=== PATIENT | male | born 1960 | race Caucasian/White ===

== ENCOUNTER → 2018-01-11 | Outpatient (CLI) | payer SELFPAY ==
--- NOTE | 2018-01-11 13:03 | RADIOLOGY REPORT (SQ) ---
EXAM DESCRIPTION: NM WHOLE BODY BONE SCAN COMPLETED DATE/TIME: 01/11/2018 12:33 pm REASON FOR STUDY: PROSTATE CANCER C61 MALIGNANT NEOPLASM OF PROSTATE COMPARISON: No available imaging studies for comparison. RADIONUCLIDE AND DOSE: 21.7 millicuries Tc99m MDP. The route of agent administration: Intravenous. ADDITIONAL DRUGS AND DOSES: None. TECHNIQUE: Routine delayed images at 3 hour post radionuclide injection acquired of the bony skeleto n including anterior and posterior whole-body projections and additional focused images as needed. LIMITATIONS: None. FINDINGS: BONES: Normal visualization without areas of photopenia or increased bony uptake of radiop harmaceutical. KIDNEYS: Symmetric excretion without obstruction. OTHER: No other significant finding. IMPRESSION: NORMAL BONE SCAN. COMMENT: Quality measure 147: No available prior imaging studies for comparison TECHNICAL DOCUMENTATION: JOB ID: [id number] [employer]- All Rights Reserved Reading location - IP/workstation name: [email or web address]
== END ==
LOC: RAD 08:08
PROVIDERS: ATTEND Urology
DX: C61 Malignant neoplasm of prostate (principal)
CPT/HCPCS: 78306; A9561; Q9969

== ENCOUNTER → 2018-02-24 | Outpatient (CLI) | payer OTHER ==
--- NOTE | 2018-02-25 10:33 | RADIOLOGY REPORT (SQ) ---
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 CONTRAST TYPE AND DOSE: 20 mL Prohance. RENAL FUNCTION: GFR > 60. LIMITATIONS: None. FINDINGS: LIVER: 1.8 cm hemangioma, anterior left lobe liver subdiaphragmatic surface. No worrisome liver lesions. No biliary ductal dilatation. Normal size liver. SPLEEN: Normal size. No focal lesions. PANCREAS: No masses. No adjacent inflammation or peripancreatic fluid collections. Pancreatic duct no t dilated. GALLBLADDER: No masses. No stones. No gallbladder wall thickening or pericholecystic fluid. ADRENAL GLANDS: No significant masses or asymmetry. RIGHT KIDNEY AND URETER: No masses. No hydronephrosis. LEFT KIDNEY AND URETER: No masses. No hydronephrosis. 1 cm cyst left posterior mid pole kidney. AORTA AND VESSELS: No aneurysm. No dissection. Renal arteries, SMA, celiac without stenosis. RETROPERITONEUM: No retroperitoneal adenopathy, hemorrhage or masses. BOWEL: Not well seen, diffuse colonic diverticulosis is present without CT signs of acute diverticuli tis ABDOMINAL WALL AND PERITONEUM: No hernias. No free fluid. BONES: No acute or significant findings. OTHER: No other significant finding. IMPRESSION: NORMAL MRI OF THE ABDOMEN WITHOUT AND WITH CONTRAST. TECHNICAL DOCUMENTATION: JOB ID: [id number]- All Rights Reserved Reading location - IP/workstation name: [email or web address]
== END ==
LOC: RAD 13:56
PROVIDERS: ATTEND Radiology Radiation Oncology
DX: C61 Malignant neoplasm of prostate (principal); C77.5 Secondary and unspecified malignant neoplasm of intrapelvic lymph nodes; K76.89 Other specified diseases of liver; R97.20 Elevated prostate specific antigen [PSA]
CPT/HCPCS: 82565; 74183; A9576

== ENCOUNTER → 2018-03-25 | Outpatient (CLI) | payer OTHER ==
[2018-03-25 10:49] LABS: ABSOLUTE LYMPHOCYTES (AUTO) 1.2 10^3/uL (0.5-4.7); ABSOLUTE MONOCYTES (AUTO) 0.4 10^3/uL (0.1-1.4); BASOPHILS % (AUTO) 0.2 % (0-2); EOSINOPHILS % (AUTO) 0.7 % (0-6); HEMATOCRIT 40.5 % (37.9-51.0); HEMOGLOBIN 14.2 g/dL (13.5-17.0); MEAN CORPUSCULAR HEMOGLOBIN 31.7 pg (27.0-33.4); MEAN CORPUSCULAR VOLUME 90 fl (80-97); MONOCYTES % (AUTO) 6.5 % (3-13); PLATELET COUNT 252 10^3/uL (150-450); RED BLOOD COUNT 4.48 10^6/uL (4.35-5.55); RED CELL DISTRIBUTION WIDTH 14.2 % (11.5-14.0); SEGMENTED NEUTROPHILS % (AUTO) 74.6 % (42-78); TOTAL CELLS COUNTED % (AUTO) 100 %; WHITE BLOOD COUNT 6.7 10^3/uL (4.0-10.5)
[2018-03-25 11:20] LABS: BLOOD UREA NITROGEN 25 mg/dL (7-20)
== END ==
LOC: OD 09:17
PROVIDERS: ATTEND Radiology Radiation Oncology
DX: C61 Malignant neoplasm of prostate (principal); R97.20 Elevated prostate specific antigen [PSA]; C77.5 Secondary and unspecified malignant neoplasm of intrapelvic lymph nodes
CPT/HCPCS: 36415; 82565; 84153; 84520; 85025

== ENCOUNTER → 2018-09-16 | Outpatient (CLI) | payer OTHER | LOC: OD 10:14 | PROVIDERS: ATTEND Radiology Radiation Oncology | DX: C61 Malignant neoplasm of prostate (principal) | CPT/HCPCS: 36415; 84153 ==

== ENCOUNTER → 2018-12-30 | Outpatient (CLI) | payer OTHER | LOC: OD 15:28 | PROVIDERS: ATTEND Radiology Radiation Oncology | DX: C61 Malignant neoplasm of prostate (principal); C77.5 Secondary and unspecified malignant neoplasm of intrapelvic lymph nodes; R97.20 Elevated prostate specific antigen [PSA] | CPT/HCPCS: 36415; 84153 ==

== ENCOUNTER → 2019-05-30 | Outpatient (CLI) | payer MEDICAID, OTHER ==
--- NOTE | 2019-05-30 10:52 | RADIOLOGY REPORT (SQ) ---
EXAM DESCRIPTION: CT CHEST WITH; CT ABD/PELVIS WITH IV ONLY COMPLETED DATE/TIME: 05/30/2019 9:32 am REASON FOR STUDY: PROSTATE CA (C61) C61 MALIGNANT NEOPLASM OF PROSTATE COMPARISON: None. CONTRAST TYPE AND DOSE: contrast/concentration: Isovue 350.00 mg/ml; Total Contrast Delivered: 95.0 ml; Total Saline Delivered: 71.0 ml RENAL FUNCTION: GFR > 60. TECHNIQUE: CT scan of the chest performed using helical scanning technique with dynamic intravenous contrast injection. Images reviewed with lung, soft tissue and bone windows. Reconstructed coronal a nd sagittal MPR images reviewed. All images stored on PACS. CT scan of the abdomen and pelvis performed with intravenous and without oral contrastusing helical s jules technique with dynamic intravenous contrast injection. Images reviewed with lung, soft tissu e and bone windows. Reconstructed coronal and sagittal MPR images reviewed. Delayed images for eval uation of the urinary system also acquired and evaluated. All images stored on PACS. All CT scanners at this facility use dose modulation, iterative reconstruction, and/or weight based d osing when appropriate to reduce radiation dose to as low as reasonably achievable (ALARA). [facility]: Dose Right [facility]: CareDose [facility]: Dose Right [facility]: Teradose 4D [facility]: [employer] RADIATION DOSE: CT Rad equipment meets quality standard of care and radiation dose reduction techniq ues were employed. CTDIvol: 6.4 - 8.5 mGy. DLP: 1169 mGy-cm. . LIMITATIONS: None. FINDINGS: CHEST: LUNGS AND PLEURA: There are multiple small bilateral pulmonary nodules, for example a a 6 mm nodule i n the superior segment right lower lobe (series 6, image 57). No pneumothorax. No effusions. HILAR AND MEDIASTINAL STRUCTURES: No identified masses or abnormal nodes. HEART AND VASCULAR STRUCTURES: No aneurysm or dissection. No central pulmonary emboli. No pericardi al effusion. HARDWARE: None. THYROID AND OTHER SOFT TISSUES: No masses. No adenopathy. BONES: No significant finding. OTHER: No other significant finding. ABDOMEN AND PELVIS: LIVER: Normal size. Small incidental peripheral nodular enhancing septae caps hemangioma of the ante rior left lobe of the liver. No dilated ducts. SPLEEN: Normal size. No focal lesions. PANCREAS: No masses. No significant calcifications. No adjacent inflammation or peripancreatic fluid collections. Pancreatic duct not dilated. GALLBLADDER: No identified stones by CT criteria. No inflammatory changes to suggest cholecystitis. ADRENAL GLANDS: No significant masses or asymmetry. RIGHT KIDNEY AND URETER: No solid masses. No significant calcification. No hydronephrosis or hydroure ter. LEFT KIDNEY AND URETER: No solid masses. No significant calcification. No hydronephrosis or hydrouret er. AORTA AND VESSELS: No aneurysm. No dissection. Renal arteries, SMA, celiac without stenosis. RETROPERITONEUM: There are enlarged left retroperitoneal lymph nodes measuring up to 1.5 cm (series 3 , image 42). BOWEL AND PERITONEAL CAVITY: No masses or inflammatory changes. No free fluid or peritoneal masses. Severe pancolonic diverticulosis. APPENDIX: Normal. ABDOMINAL WALL: No masses. Small bilateral fat containing inguinal hernias. PELVIS: No mass or free fluid. Mild thickening of the urinary bladder. Multiple marking clips withi n the prostate. Status post TURP. BONES: No significant or acute findings. OTHER: No other significant finding. IMPRESSION: 1. Multiple small nonspecific pulmonary nodules. These are likely infectious or inflam matory although attention on follow-up is warranted. 2. Multiple marking clips within the prostate. Status post TURP. No evidence of pelvic mass. 3. There are enlarged left retroperitoneal lymph nodes measuring up to 1.5 cm, suspicious although n onspecific. Attention on follow-up. 4. Pancolonic diverticulosis. TECHNICAL DOCUMENTATION: JOB ID: [id number] Quality ID # 436: Final reports with documentation of one or more dose reduction techniques (e.g., Au tomated exposure control, adjustment of the mA and/or kV according to patient size, use of iterative reconstruction technique) 2010 [employer]- All Rights Reserved Reading location - IP/workstation name: [email or web address]
== END ==
LOC: RAD 08:47
PROVIDERS: ATTEND Urology
DX: C61 Malignant neoplasm of prostate (principal); R91.8 Other nonspecific abnormal finding of lung field; R59.0 Localized enlarged lymph nodes; K57.30 Diverticulosis of large intestine without perforation or abscess without bleeding
CPT/HCPCS: 71260; 74177; 82565

== ENCOUNTER → 2019-07-25 | Outpatient (CLI) | payer MEDICAID ==
--- NOTE | 2019-07-25 12:51 | RADIOLOGY REPORT (SQ) ---
EXAM DESCRIPTION: NM WHOLE BODY BONE SCAN COMPLETED DATE/TIME: 07/25/2019 12:36 pm REASON FOR STUDY: C61 MALIGNANT NEOPLASM OF PROSTATE C61 MALIGNANT NEOPLASM OF PROSTATE COMPARISON: CT chest, abdomen and pelvis dated 05/30/2019 RADIONUCLIDE AND DOSE: 21.5 millicuries Tc99m HDP. The route of agent administration: Intravenous. ADDITIONAL DRUGS AND DOSES: None. TECHNIQUE: Routine delayed images at 3 hour post radionuclide injection acquired of the bony skeleto n including anterior and posterior whole-body projections and additional focused images as needed. LIMITATIONS: None. FINDINGS: BONES: There is abnormal uptake in a upper right posterior rib probably the 1st or 2nd rib . Review of prior CT demonstrates possible fracture involving the right posterolateral 2nd rib. Thi s however is in various soft finding and could represent artifact. No obvious lytic or sclerotic pro cess ease on CT. KIDNEYS: Symmetric excretion without obstruction. OTHER: No other significant finding. IMPRESSION: Linear uptake in a right upper rib probably the 1st per 2nd. The pattern or uptake sugg est metastatic disease. Review of a CT done on May demonstrates possible nondisplaced fracture. Recommend repeat conventional radiographs for correlation. No other areas of abnormal uptake. COMMENT: Quality measure 147: Current bone scan is compared with any available plain radiographs, p rior bone scans, and CT/MRI. TECHNICAL DOCUMENTATION: JOB ID: [id number] [employer], an [employer]- All Rights Reserved Reading location - IP/workstation name: [email or web address]
== END ==
LOC: RAD 08:07
PROVIDERS: ATTEND Urology
DX: C61 Malignant neoplasm of prostate (principal)
CPT/HCPCS: 78306; A9561; Q9969

== ENCOUNTER → 2020-04-16 | Outpatient (CLI) | payer MEDICAID ==
--- NOTE | 2020-04-16 18:20 | RADIOLOGY REPORT (SQ) ---
EXAM DESCRIPTION: KUB/ABDOMEN (SINGLE VIEW) IMAGES COMPLETED DATE/TIME: 04/16/2020 12:42 pm REASON FOR STUDY: M54.5 LOW BACK PAIN, R10.30 LOWER ABDOMINAL PAIN, UNSPECIFIED M54.5 LOW BACK PAIN R10.30 LOWER ABDOMINAL PAIN, UNSPECIFIED COMPARISON: None. NUMBER OF VIEWS: One view. TECHNIQUE: Supine radiographic image of the abdomen acquired. LIMITATIONS: None. FINDINGS: BOWEL GAS PATTERN: Normal bowel gas pattern. No dilated loops. CALCIFICATIONS: No suspicious calcifications. SOFT TISSUES: No gross mass or suggestion of organomegaly. HARDWARE: None in the abdomen. BONES: Degenerative disc narrowing at the lumbosacral junction. OTHER: No other significant finding. IMPRESSION: NO RADIOGRAPHIC EVIDENCE FOR ACUTE ABDOMINAL DISEASE. TECHNICAL DOCUMENTATION: JOB ID: [id number] 2010 [employer] All Rights Reserved Reading location - IP/workstation name: [email or web address]
== END ==
LOC: RAD 12:21
PROVIDERS: ATTEND Nurse Practitioner Family
DX: M54.5 Low back pain (principal); R10.30 Lower abdominal pain, unspecified
CPT/HCPCS: 74018

== ENCOUNTER → 2020-04-30 | Outpatient (CLI) | payer MEDICAID ==
--- NOTE | 2020-04-30 12:30 | RADIOLOGY REPORT (SQ) ---
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 No oral contrast. Images reviewed with lung, soft tissue, and bone windows. Reconstructed coronal and sagittal MPR images reviewed. Delayed images for evaluation of the urinary system also acquired. All images stored on PACS. All CT scanners at this facility use dose modulation, iterative reconstruction, and/or weight based d osing when appropriate to reduce radiation dose to as low as reasonably achievable (ALARA). [facility]: Dose Right [facility]: CareDose [facility]: Dose Right [facility]: Teradose 4D [facility]: [employer] CONTRAST TYPE AND DOSE: Contrast/concentration: Isovue 300.00 mmol/ml; Total Contrast Delivered: 98. 9 ml; Total Saline Delivered: 57.0 ml RENAL FUNCTION: Creatinine 1.8 milligrams/deciliter RADIATION DOSE: CT Rad equipment meets quality standard of care and radiation dose reduction techniq ues were employed. CTDIvol: 13.2 - 13.2 mGy. DLP: 1338 mGy-cm. LIMITATIONS: None. FINDINGS: LOWER CHEST: Stable ill-defined nodular opacity in the left lower lobe (image 6 of series 4). LIVER: The morphology of the liver is noncirrhotic. There is a 2.2 x 2 cm hypervascular lesion withi n segment 2 of the liver (image 11 of series 2) that demonstrates peripheral discontinuous enhancemen t. The portal veins are patent. SPLEEN: No splenomegaly or splenic mass. There is a 16 x 14 mm accessory splenule medial to the sple en. PANCREAS: No acute gross abnormality of the pancreas. GALLBLADDER: No abnormality that is apparent on CT. ADRENAL GLANDS: No mass or asymmetry. RIGHT KIDNEY AND URETER: No solid mass, hydronephrosis, nephrolithiasis, hydroureter or ureterolithia sis. LEFT KIDNEY AND URETER: Abrupt tapering of the proximal to mid ureter (image 59 of series 601) associ ated with inflammation of the periureteric fat, moderate hydronephrosis, delayed renal enhancement an d impaired excretion of the intravenous contrast. AORTA AND VESSELS: Atherosclerotic calcification of the abdominal aorta and iliac artery's. There is no abdominal aortic aneurysm. RETROPERITONEUM: Enlarged lateral aortic lymph nodes that have increased in size from 05/30/2019; ind ividual lymph nodes measure 18 and 11 mm. BOWEL AND PERITONEAL CAVITY: Colonic diverticulosis without diverticulitis. There is no bowel obstru ction, bowel wall thickening or pericolonic/ perienteric inflammation. There is no mesenteric adenop athy, free intraperitoneal fluid or mesenteric/omental inflammation. APPENDIX: Normal. PELVIS: The wall of the urinary bladder is circumferentially thickened. There are fiducial markers w ithin the prostate gland. There is no pelvic adenopathy. ABDOMINAL WALL: The inguinal canal are patulous. BONES: The relative low-attenuation of the L5 and sacral vertebrae could represent the sequela of khushi or radiation. OTHER: No other finding. IMPRESSION: 1. Abrupt tapering of the proximal to mid left ureter (image 59 of series 601) associate d with inflammation of the periureteric fat, moderate hydronephrosis, delayed renal enhancement and i mpaired excretion of the intravenous contrast. Given the adjacent adenopathy the above findings are concerning for a malignant stricture. 2. Colonic diverticulosis without diverticulitis. 3. 2.2 x 2 cm hepatic hemangioma. 4. Other secondary findings as detailed above. TECHNICAL DOCUMENTATION: JOB ID: [id number] Quality ID # 436: Final reports with documentation of one or more dose reduction techniques (e.g., Au tomated exposure control, adjustment of the mA and/or kV according to patient size, use of iterative reconstruction technique) 2010 [employer]- All Rights Reserved Reading location - IP/workstation name: [email or web address]
--- NOTE | 2020-05-01 15:28 | RADIOLOGY REPORT (SQ) ---
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 T1 post ga dolinium sequences. CONTRAST TYPE AND DOSE: 15 ML Prohance. RENAL FUNCTION: Not indicated. ACR Type II contrast agent associated with few, if any, unconfounded cases of NSF LIMITATIONS: None. FINDINGS: LOCALIZER: No worrisome findings. ALIGNMENT: Normal. VERTEBRAE: Intact. BONE MARROW: Normal. No marrow replacement or reactive changes. HARDWARE: None in the spine. CORD: Normal in size and signal intensity. SOFT TISSUES: No soft tissue masses. THORACIC DISCS T1-T12: No significant spinal stenosis or exit foraminal stenosis. LOWER CERVICAL: Incompletely imaged. No significant spinal stenosis or exit foraminal stenosis. UPPER LUMBAR: Incompletely imaged. No significant spinal stenosis or exit foraminal stenosis. ENHANCEMENT: No abnormal enhancement. OTHER: No other significant finding. IMPRESSION: NORMAL MRI THORACIC SPINE. TECHNICAL DOCUMENTATION: JOB ID: [id number] 2010 [employer]- All Rights Reserved Reading location - IP/workstation name: [email or web address]
--- NOTE | 2020-05-01 18:20 | RADIOLOGY REPORT (SQ) ---
EXAM DESCRIPTION: MRI LUMBAR SPINE COMBO IMAGES COMPLETED DATE/TIME: 04/30/2020 10:36 am REASON FOR STUDY: C79.51 SECONDARY MALIGNANT NEOPLASM OF BONE C61 MALIGNANT NEOPLASM OF PROSTATE C7 9.51 SECONDARY MALIGNANT NEOPLASM OF BONE COMPARISON: Bone scan TECHNIQUE: Sagittal and Axial imaging includes T1, T1 post gadolinium, T2, STIR and gradient echo se quences. Coronal T2/HASTE imaging. CONTRAST TYPE AND DOSE: 15 mL Prohance. RENAL FUNCTION: Not indicated. ACR Type II contrast agent associated with few, if any, unconfounded cases of NSF LIMITATIONS: None. FINDINGS: VISUALIZED UPPER ABDOMEN: Limited evaluation. No acute or suspicious findings suggested. SEGMENTATION: No transitional anatomy. The lowest well-developed disc space is labeled L5-S1. ALIGNMENT: Degenerative retrolisthesis of L5 on S1. VERTEBRAE: Intact. No fractures. BONE MARROW: Fatty marrow at L5-S1 and other visualized sacral segments. This is likely related to p rior treatment. DISC SIGNAL: Loss of height and T2 signal L5-S1. POSTERIOR ELEMENTS: Generally intact. No pars defect evident. HARDWARE: None in the spine. CORD AND CONUS: Normal in size and signal intensity. Conus at the appropriate level. SOFT TISSUES: No aortic aneurysm seen. No bulky retroperitoneal adenopathy or mass. No paraspinal mas s or fluid. L1-L2: No significant spinal stenosis or exit foraminal stenosis. L2-L3: No significant spinal stenosis or exit foraminal stenosis. L3-L4: No significant spinal stenosis or exit foraminal stenosis. L4-L5: Mild disc bulge with mild narrowing of the exit foramina. L5-S1: Disc osteophyte complex with mild narrowing of the exit foramina. LOWER THORACIC: Incompletely imaged. No stenosis seen. SACRUM: Visualized upper sacrum intact. ENHANCEMENT: No abnormal enhancement. OTHER: No other significant findings. IMPRESSION: No metastases. Fatty marrow L5-S1 and of the sacral segments almost certainly related to prior treatment. Mild narrowing of the exit foramina L5-S1. TECHNICAL DOCUMENTATION: JOB ID: [id number] 2010 [employer]- All Rights Reserved Reading location - IP/workstation name: [email or web address]
== END ==
LOC: RAD 07:55
PROVIDERS: ATTEND Nurse Practitioner Family
DX: C79.51 Secondary malignant neoplasm of bone (principal); M25.78 Osteophyte, vertebrae; M54.5 Low back pain; C61 Malignant neoplasm of prostate; K57.30 Diverticulosis of large intestine without perforation or abscess without bleeding
CPT/HCPCS: 82565; 72157; 72158; 74177; A9576

== ENCOUNTER 2020-05-21 10:15 | Emergency (ER) | payer MEDICARE, MEDICAID ==
[2020-05-21 10:22] VITALS: BP 131/74
--- NOTE | 2020-05-21 10:50 | ER Document Report ---
ED Medical Screen (RME) - General Chief Complaint: Abdominal Pain Stated Complaint: ABDOMINAL/POST SURGICAL PAIN Time Seen by Provider: 05/21/20 10:35 Primary Care Provider: FRANKI FELIX FNP-C [Primary Care Provider] - Follow up as needed Notes: Patient presents complaining of left flank and left groin pain. Patient reports having a kidney biopsy and stent placed last week. Patient states that he does have a history of prostate cancer. Patient denies any fever, nausea or vomiting. Patient states that he is having increased pain and he took hydrocodone yesterday without any improvement of his symptoms. Patient drove himself here today. I have greeted and performed a rapid initial assessment of this patient. A comprehensive ED assessment and evaluation of the patient, analysis of test results and completion of the medical decision making process will be conducted by additional ED providers. TRAVEL OUTSIDE OF THE [place] IN LAST 30 DAYS: No Physical Exam - Vital signs Vitals: Temp Pulse Resp BP Pulse Ox 98.2 F 77 18 131/74 H 99 05/21/20 10:21 05/21/20 10:21 05/21/20 10:21 05/21/20 10:21 05/21/20 10:21 - Back Back: CVA tenderness - Left flank Course - Vital Signs Vital signs: Temp Pulse Resp BP Pulse Ox 98.2 F 77 18 131/74 H 99 05/21/20 10:21 05/21/20 10:21 05/21/20 10:21 05/21/20 10:21 05/21/20 10:21 Doctor's Discharge - Discharge Referrals: FRANKI FELIX FNP-C [Primary Care Provider] - Follow up as needed
[2020-05-21 11:14] LABS: ABSOLUTE EOSINOPHILS # (AUTO) 0.1 10^3/uL (0.0-0.6); ABSOLUTE LYMPHOCYTES (AUTO) 0.7 10^3/uL (0.5-4.7); EOSINOPHILS % (AUTO) 1.9 % (0-6); HEMOGLOBIN 12.3 g/dL (13.5-17.0); LYMPHOCYTES % (AUTO) 11.8 % (13-45); TOTAL CELLS COUNTED % (AUTO) 100 %; WHITE BLOOD COUNT 6.3 10^3/uL (4.0-10.5)
[2020-05-21 11:19] LABS: APPEARANCE,URINE CLEAR; BILIRUBIN,URINE NEGATIVE (NEGATIVE); COLOR,URINE STRAW; GLUCOSE, URINE NEGATIVE (NEGATIVE); KETONES,URINE NEGATIVE (NEGATIVE); LEUKOCYTE ESTERASE,URINE SMALL (NEGATIVE); NITRITE,URINE NEGATIVE (NEGATIVE); PROTEIN,URINE NEGATIVE (NEGATIVE); UROBILINOGEN,URINE NEGATIVE mg/dL (<2.0)
[2020-05-21 11:22] LABS: ABSOLUTE MONOCYTES (AUTO) 0.5 10^3/uL (0.1-1.4); ABSOLUTE NEUT (AUTO) 4.9 10^3/uL (1.7-8.2); BASOPHILS % (AUTO) 0.4 % (0-2); HEMATOCRIT 34.4 % (37.9-51.0); MEAN CORPUSCULAR HEMOGLOBIN 31.5 pg (27.0-33.4); MEAN CORPUSCULAR HGB CONC 35.8 g/dL (32.0-36.0); MEAN CORPUSCULAR VOLUME 88 fl (80-97); MONOCYTES % (AUTO) 7.4 % (3-13); PLATELET COUNT 356 10^3/uL (150-450); RED BLOOD COUNT 3.91 10^6/uL (4.35-5.55); RED CELL DISTRIBUTION WIDTH 12.7 % (11.5-14.0); SEGMENTED NEUTROPHILS % (AUTO) 78.5 % (42-78)
[2020-05-21 11:37] LABS: ALBUMIN 4.4 g/dL (3.5-5.0); ALKALINE PHOSPHATASE 95 U/L (38-126); ASPARTATE AMINO TRANSFERASE 22 U/L (17-59); CARBON DIOXIDE 30 mmol/L (22-30); POTASSIUM 4.2 mmol/L (3.6-5.0)
[2020-05-21 11:39] LABS: BILIRUBIN,DIRECT 0.2 mg/dL (0.0-0.4); BILIRUBIN,TOTAL 0.4 mg/dL (0.2-1.3); BLOOD UREA NITROGEN 20 mg/dL (7-20); CALCIUM 9.7 mg/dL (8.4-10.2); GLUCOSE 114 mg/dL (75-110)
[2020-05-21 11:40] LABS: ANION GAP 8 (5-19); CHLORIDE 98 mmol/L (98-107)
== END 2020-05-21 12:38 | disposition left against medical advice (07) ==
LOC: ER 10:15
DX: R10.9 Unspecified abdominal pain (principal); R10.32 Left lower quadrant pain; Z85.46 Personal history of malignant neoplasm of prostate
CPT/HCPCS: 36415; 80053; 81001; 85025; 99281

== ENCOUNTER → 2020-06-06 | Outpatient (CLI) | payer MEDICARE, MEDICAID ==
--- NOTE | 2020-06-07 08:15 | RADIOLOGY REPORT (SQ) ---
EXAM DESCRIPTION: HIP LEFT AP/LATERAL IMAGES COMPLETED DATE/TIME: 06/06/2020 8:49 am REASON FOR STUDY: PAIN M25.552 PAIN IN LEFT HIP COMPARISON: None. NUMBER OF VIEWS: Two views. TECHNIQUE: AP and frog-leg view of the left hip. LIMITATIONS: None. FINDINGS: MINERALIZATION: Normal. LEFT HIP: No fracture or dislocation. No worrisome bone lesions. No contour deformity. No joint spa ce narrowing. OPPOSITE HIP: No fracture or dislocation. No worrisome bone lesions. SOFT TISSUES: Double-J ureteral stent is in place. OTHER: No other significant finding. IMPRESSION: NEGATIVE STUDY OF THE LEFT HIP. NO EXPLANATION FOR PAIN. TECHNICAL DOCUMENTATION: JOB ID: [id number] 2010 [employer]- All Rights Reserved Reading location - IP/workstation name: [email or web address]
== END ==
LOC: RAD 08:33
PROVIDERS: ATTEND Nurse Practitioner Family
DX: M25.552 Pain in left hip (principal)

== ENCOUNTER 2020-06-20 12:51 | Emergency (ER) | payer MEDICARE, MEDICAID ==
[2020-06-20] MEDS ORDERED: ONDANSETRON 4 MG TAB.RAPDIS PO ONE (13:17)
[2020-06-20] MEDS ORDERED: NORMAL SALINE 1000 ML 1,000 ML IV ONE (13:19)
--- NOTE | 2020-06-20 13:19 | ER Document Report ---
ED Medical Screen (RME) - General Chief Complaint: Nausea/Vomiting Stated Complaint: NAUSEA,VOMITING Time Seen by Provider: 06/20/20 13:11 Primary Care Provider: CARLTON DAVENPORT NP-C [Primary Care Provider] - Follow up as needed Mode of Arrival: Medic Information source: Patient Notes: 59-year-old male patient presenting to the emergency department with nausea and vomiting. Patient reports he believes it is related to a recent increase in his oxycodone dose. He states that he used to take 5/325 of Percocet, they slowly titrated him up to 10/325. They now started him a few days ago on 15 mg oxycodone tablets. He states most time he takes it as he gets sick. He recently had a ureteral stent placed at [facility]. He denies any known fever but states he keeps having chills and then getting hot and diaphoretic. Patient slightly diaphoretic in triage, appears to be very uncomfortable. I have greeted and performed a rapid initial assessment of this patient. A comprehensive ED assessment and evaluation of the patient, analysis of test results and completion of the medical decision making process will be conducted by additional ED providers. I have specifically instructed the patient or family members with the patient to immediately return to any nursing staff should anything change in the patient's condition or with their chief complaint. TRAVEL OUTSIDE OF THE [place] IN LAST 30 DAYS: No - Related Data Allergies/Adverse Reactions: No Known Allergies Allergy (Verified 05/21/20 10:51) Home Medications: oxycodone, xanax, lisinopril, lovastatin, effexor Past Medical History - Past Medical History Cardiac Medical History: Reports: Hx Hypertension Past Surgical History: Reports: Hx Kidney (Renal Surgery) - stent placement Physical Exam - Vital signs Vitals: Temp Pulse Resp BP Pulse Ox 97.9 F 92 18 144/84 H 99 06/20/20 12:57 06/20/20 12:57 06/20/20 12:57 06/20/20 12:57 06/20/20 12:57 Course - Vital Signs Vital signs: Temp Pulse Resp BP Pulse Ox 97.9 F 92 18 144/84 H 99 06/20/20 12:57 06/20/20 12:57 06/20/20 12:57 06/20/20 12:57 06/20/20 12:57 Doctor's Discharge - Discharge Referrals: CARLTON DAVENPORT, [employer]-C [Primary Care Provider] - Follow up as needed
[2020-06-20 14:17] LABS: ABSOLUTE LYMPHOCYTES (AUTO) 0.8 10^3/uL (0.5-4.7); ABSOLUTE MONOCYTES (AUTO) 0.6 10^3/uL (0.1-1.4); ABSOLUTE NEUT (AUTO) 8.2 10^3/uL (1.7-8.2); BASOPHILS % (AUTO) 0.3 % (0-2); EOSINOPHILS % (AUTO) 0.1 % (0-6); HEMATOCRIT 37.8 % (37.9-51.0); HEMOGLOBIN 13.7 g/dL (13.5-17.0); LYMPHOCYTES % (AUTO) 8.2 % (13-45); MEAN CORPUSCULAR HEMOGLOBIN 31.3 pg (27.0-33.4); MEAN CORPUSCULAR HGB CONC 36.3 g/dL (32.0-36.0); MEAN CORPUSCULAR VOLUME 86 fl (80-97); PLATELET COUNT 537 10^3/uL (150-450); RED BLOOD COUNT 4.39 10^6/uL (4.35-5.55); RED CELL DISTRIBUTION WIDTH 12.9 % (11.5-14.0); SEGMENTED NEUTROPHILS % (AUTO) 85.4 % (42-78); TOTAL CELLS COUNTED % (AUTO) 100 %; WHITE BLOOD COUNT 9.6 10^3/uL (4.0-10.5)
[2020-06-20] MEDS ORDERED: HYDROMORPHONE HCL INJ/PF 2 MG/ML AMPULE IV ONE (14:28)
[2020-06-20 14:34] LABS: ALBUMIN 5.1 g/dL (3.5-5.0); ALKALINE PHOSPHATASE 150 U/L (38-126); ASPARTATE AMINO TRANSFERASE 56 U/L (17-59); BILIRUBIN,DIRECT 0.2 mg/dL (0.0-0.4); BILIRUBIN,TOTAL 0.6 mg/dL (0.2-1.3); BLOOD UREA NITROGEN 24 mg/dL (7-20); CALCIUM 9.5 mg/dL (8.4-10.2); GLUCOSE 136 mg/dL (75-110); POTASSIUM 3.4 mmol/L (3.6-5.0); TOTAL PROTEIN 8.4 g/dL (6.3-8.2)
[2020-06-20 14:39] LABS: CARBON DIOXIDE 22 mmol/L (22-30); CHLORIDE 88 mmol/L (98-107)
[2020-06-20 14:41] LABS: ANION GAP 21 (5-19)
--- NOTE | 2020-06-20 15:43 | ER Document Report ---
ED General - General Chief Complaint: Nausea/Vomiting Stated Complaint: NAUSEA,VOMITING Time Seen by Provider: 06/20/20 13:11 Primary Care Provider: CARLTON DAVENPORT NP-C [Primary Care Provider] - Follow up as needed Mode of Arrival: Medic Notes: This 39-year-old man presents to the emergency department with a history of severe nausea and vomiting associated with taking pain medications. He apparently has noted that whenever he takes the Percocet he becomes very sick and unable to keep down fluids dry heaving and vomiting. 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 He first got it with Percocet 5/325, however the dose was increased to Percocet 10/325, he states he cannot tolerate the tablets because of the severe nausea and vomiting. Presently he is in severe pain and is requesting medications. TRAVEL OUTSIDE OF THE [place] IN LAST 30 DAYS: No - Related Data Allergies/Adverse Reactions: No Known Allergies Allergy (Verified 05/21/20 10:51) Home Medications: oxycodone, xanax, lisinopril, lovastatin, effexor Past Medical History - General Information source: Patient - Social History Smoking Status: Unknown if Ever Smoked Family History: Reviewed & Not Pertinent - Past Medical History Cardiac Medical History: Reports: Hx Hypertension Past Surgical History: Reports: Hx Kidney (Renal Surgery) - stent placement Review of Systems - Review of Systems Notes: Constitutional: Negative for fever. HENT: Negative for sore throat. Eyes: Negative for visual changes. Cardiovascular: Negative for chest pain. Respiratory: Negative for shortness of breath. Gastrointestinal: See HPI Genitourinary: See HPI Musculoskeletal: Negative for back pain. Skin: Negative for rash. Neurological: Negative for headaches, weakness or numbness. 10 point ROS negative except as marked above and in HPI. Physical Exam - Vital signs Vitals: Temp Pulse Resp BP Pulse Ox 97.9 F 92 18 144/84 H 99 06/20/20 12:57 06/20/20 12:57 06/20/20 12:57 06/20/20 12:57 06/20/20 12:57 - Notes Notes: PHYSICAL EXAMINATION: Physical Exam: General: Chronically ill-appearing 59-year-old man in moderate distress secondary to pain HEENT: NC/AT, pupils equal round and reactive to light, MM moist,nares clear, oropharynx clear, airway patent Neck: supple, no adenopathy, no masses. Good range of motion Lungs: clear, no wheezing, no rales no rhonchi CVS: Regular rate and rhythm no murmur gallop or rub Abdomen: Soft, active, nontender, no masses, no hepatosplenomegaly Ext: No edema, clubbing or cyanosis. Neuro: Alert and responsive, moving all 4 extremities on command, cranial nerves intact, no focal findings Skin: Intact no open lesions, no rash Course - Re-evaluation Re-evalutation: 06/20/20 15:51 I have discussed the patient with Dr. Mercer, she is suggested that the patient be given 1 mg hydromorphone tablet and Zofran 8 mg for nausea. He is then to call the office regarding his pain management and for further direction. I have had this discussion with the patient and he is in agreement with that plan. - Vital Signs Vital signs: Temp Pulse Resp BP Pulse Ox 98.1 F 92 11 L 132/85 H 100 06/20/20 16:29 06/20/20 12:57 06/20/20 15:31 06/20/20 15:31 06/20/20 15:31 - Laboratory Result Diagrams: 06/20/20 13:45 06/20/20 13:45 Laboratory results interpreted by me: 06/20/20 06/20/20 13:45 13:45 Hct 37.8 L MCHC 36.3 H Plt Count 537 H Lymph % (Auto) 8.2 L Seg Neutrophils % 85.4 H Sodium 131.0 L Potassium 3.4 L Chloride 88 L Anion Gap 21 H BUN 24 H Creatinine 1.84 H Est GFR ( Amer) 46 L Est GFR (MDRD) Non-Af 38 L Glucose 136 H Alkaline Phosphatase 150 H Total Protein 8.4 H Albumin 5.1 H Discharge - Discharge Clinical Impression: Metastatic malignant neoplasm to prostate, Cancer related pain Condition: Good Disposition: HOME, SELF-CARE Additional Instructions: You were seen in the emergency department today with symptoms related to oxycodone pain medication. We have contacted the oncologist, and she has recommended that you be changed to hydromorphone 1 mg tablets along with Zofran 8 mg for nausea. You are being directed to contact the office tomorrow for further directions regarding your pain management. HOME CARE INSTRUCTIONS & INFORMATION: Thank you for choosing us for your [facility] needs. We hope you're satisfied with the care you received. After you leave, you must properly care for your problem and, at the same time, observe its progress. Any condition can change. Some illnesses can change rapidly over hours or days. If your condition worsens, return to the Emergency Department or see your physician promptly. ABOUT YOUR X-RAYS AND EKG'S: If you had an EKG or X-rays taken, they have been read by the Emergency Physician. The X-rays and EKG's will also be read by a Radiologist or Public Health Sanitarian Technician within 24 hours. If discrepancies are noted, you will be notified by telephone. Please be certain the ED has a correct telephone number & address where you can be reached. Also, realize that some fractures or abnormalities do not show up on initial X-rays. If your symptoms continue, see your physician. ABOUT YOUR LABORATORY TEST: If you had laboratory tests, the results have been reviewed by the Emergency Physician. Some test results (for example cultures) may not be available for several days. You will be contacted if any test result shows you need additional treatment. Please be certain the ED has a correct telephone number and address where you can be reached. ABOUT YOUR MEDICATIONS: You will receive instructions on how to take your medicine on the prescription label you receive. Additional information may be provided by the Pharmacy. If you have questions afterwards, call the ED for clarification or further instructions. Some prescribed medications may cause drowsiness. Do not perform tasks such as driving a car or operating machinery without consulting your Pharmacist. If you feel you need a refill of pain medication, your condition will need re-evaluation. Please do not call for a refill of any medication. ABOUT YOUR SIGNATURE: Signature of this document acknowledges to followin. Understanding that you received emergency treatment and that you may be released before al medical problems are known or treated. Please be certain the ED has a correct phone number & address where you can be reached. 2. Acknowledgement that you will arrange for follow-up care as recommended. 3. Authorization for the Emergency Physician to provide information to your follow-up Physician in order to maximize your care. AT ANY TIME, IF YOUR SYMPTOMS CHANGE SIGNIFICANTLY OR WORSEN OR YOU DEVELOP NEW SYMPTOMS, RETURN TO THE EMERGENCY DEPARTMENT IMMEDIATELY FOR RE-EVALUATION. OUR GOAL IS TO PROVIDE EXCELLENT MEDICAL CARE! WE HOPE THAT WE HAVE MET YOUR EXPECTATIONS DURING YOUR EMERGENCY DEPARTMENT VISIT AND THAT YOU FEEL YOU HAVE RECEIVED EXCELLENT CARE! Prescriptions: Hydromorphone HCl [Dilaudid 2 mg Tablet] 2 mg PO Q4HP PRN #7 tablet PRN Reason: For Pain Ondansetron [Zofran Odt 4 mg Tablet] 1 - 2 tab PO Q4H PRN #15 tab.rapdis PRN Reason: For Nausea/Vomiting Referrals: CARLTON DAVENPORT NP-C [Primary Care Provider] - Follow up as needed
[2020-06-20 16:29] VITALS: BP 132/85
== END 2020-06-20 16:29 | disposition home or self-care (01) ==
LOC: ER 12:51
DX: G89.3 Neoplasm related pain (acute) (chronic) (principal); C79.82 Secondary malignant neoplasm of genital organs; R11.2 Nausea with vomiting, unspecified; T50.905A Adverse effect of unspecified drugs, medicaments and biological substances, initial encounter; Z96.0 Presence of urogenital implants; Z79.891 Long term (current) use of opiate analgesic; Z79.899 Other long term (current) drug therapy; I10 Essential (primary) hypertension
CPT/HCPCS: 99284; 96361; 96374; 36415; 83690; 85025; 80053; A9270; J1170; J7030; S0119

== ENCOUNTER 2020-08-22 06:50 | Inpatient (IN) | payer MEDICARE, MEDICAID ==
[2020-08-22] MEDS ORDERED: HYDROMORPHONE HCL INJ/PF 2 MG/ML AMPULE IV ONE ×2 (07:19→08:56)
--- NOTE | 2020-08-22 07:24 | ER Document Report ---
ED Neck/Back Problem - General Mode of Arrival: Medic Information source: Patient TRAVEL OUTSIDE OF THE [place] IN LAST 30 DAYS: No - Related Data Home Medications: Lisinopril. Alprazolam. Livostatin. Dilaudid. Effexor. Flexeril <ALISA NAPIER - Last Filed: 08/22/20 07:58> <MU MI - Last Filed: 08/22/20 09:53> - General Chief Complaint: Back Pain Stated Complaint: BACK PAIN,LEFT SIDE Time Seen by Provider: 08/22/20 07:05 Primary Care Provider: CARLTON DAVENPORT NP-C [Primary Care Provider] - Follow up as needed Notes: 60-year-old male with a past medical history significant for hypertension, hyperlipidemia, prostate cancer, chronic back pain secondary to herniated disks presents emergency room complaining of worsening low back pain that radiates down his left leg and into his left testicle for the past 2 days. States that sometimes when he urinates he feels like he has to continue to urinate after he urinates. Patient states he takes p.o. Dilaudid 4 mg which has been taking without relief. Last dose at 530 this morning. Also states he has a left ureteral stent. Denies any nausea, vomiting, no fevers, no trauma or injury to his back. Denies loss control of bowels or bladder. No saddle anesthesia. (ALISA NAPIER) - Related Data Allergies/Adverse Reactions: No Known Allergies Allergy (Verified 05/21/20 10:51) Past Medical History - General Information source: Patient - Social History Smoking Status: Never Smoker Chew tobacco use (# tins/day): No Frequency of alcohol use: None Drug Abuse: None Family History: Reviewed & Not Pertinent - Past Medical History Cardiac Medical History: Reports: Hx Hypertension Past Surgical History: Reports: Hx Kidney (Renal Surgery) - stent placement <ALISA NAPIER - Last Filed: 08/22/20 07:58> Review of Systems - Review of Systems Constitutional: No symptoms reported EENT: No symptoms reported Cardiovascular: No symptoms reported Respiratory: No symptoms reported Gastrointestinal: No symptoms reported Genitourinary: Flank pain Musculoskeletal: Back pain Skin: No symptoms reported Neurological/Psychological: No symptoms reported -: Yes All other systems reviewed and negative <ALISA NAPIER - Last Filed: 08/22/20 07:58> Physical Exam - General General appearance: Appears well, Alert In distress: Moderate - Respiratory Respiratory status: No respiratory distress Chest status: Nontender Breath sounds: Normal Chest palpation: Normal - Cardiovascular Rhythm: Tachycardia Heart sounds: Normal auscultation Murmur: No - Back Back: Tender, CVA tenderness - Positive for left sided CVA tenderness, Vertebra tenderness - LTenderness on palpation to the vertebral spine or to S1. Tenderness over the left sciatic notch.. No: Deformity/step-off - Neurological Neuro grossly intact: Yes Cognition: Normal Orientation: AAOx4 Ade Coma Scale Eye Opening: Spontaneous [place] Coma Scale Verbal: Oriented Ade Coma Scale Motor: Obeys Commands Ade Coma Scale Total: 15 Speech: Normal Motor strength normal: LUE, RUE, LLE, RLE Sensory: Normal - Skin Skin Temperature: Warm Skin Moisture: Dry Skin Color: Normal <ALISA NAPIER - Last Filed: 08/22/20 07:58> - Vital signs Vitals: Temp Pulse Resp BP Pulse Ox 97.3 F 114 H 20 163/98 H 98 08/22/20 06:58 08/22/20 06:58 08/22/20 06:58 08/22/20 06:58 08/22/20 06:58 Course - Laboratory Results Result Diagrams: 08/22/20 07:40 08/22/20 07:40 <ALISA NAPIER - Last Filed: 08/22/20 07:58> - Laboratory Results Result Diagrams: 08/22/20 07:40 08/22/20 07:40 Critical Laboratory Results Reviewed: No Critical Results - Radiology Results Critical Radiology Results Reviewed: No Critical Results <MU MI - Last Filed: 08/22/20 09:53> - Re-evaluation Re-evalutation: 08/22/20 07:24 Patient was able to ambulate with a steady gait to the hallway to go to the restroom. Labs, CT pending IV meds ordered. 08/22/20 07:58 Report was given to the incoming staff [facility] nurse practitioner (ALISA NAPIER) 08/22/20 08:57 CT shows that the patient does have a mass that is getting bigger and metastatic disease that is now spreading to the lungs. I spoke with Dr. Jayaram, who is on-call for Dr. Mercer. We will try to give the patient another milligram of Di laudid. If his pain is still not well controlled, will speak with hospitalist for admission. Dr. Moura is in agreement with this plan. 08/22/20 09:46 It has been about 45 minutes since the patient received his dose of Dilaudid. He states that the pain is still the same. Will call the hospitalist for admission. ([email or web address]) - Vital Signs Vital signs: Temp Pulse Resp BP Pulse Ox 97.3 F 114 H 20 163/98 H 98 08/22/20 06:58 08/22/20 06:58 08/22/20 06:58 08/22/20 06:58 08/22/20 06:58 - Laboratory Results Laboratory Results Interpreted: 08/22/20 08/22/20 08/22/20 07:40 07:40 07:40 Hgb 12.6 L Hct 37.3 L Plt Count 575 H Lymph % (Auto) 6.1 L Seg Neutrophils % 86.2 H Sodium 132.1 L Chloride 97 L BUN 24 H Creatinine 1.33 H Est GFR (MDRD) Non-Af 55 L Glucose 145 H Alkaline Phosphatase 156 H Urine Protein 100 H Urine Ketones TRACE H Urine Bilirubin SMALL H Urine Urobilinogen 4.0 H Ur Leukocyte Esterase TRACE H Discharge <ALISA NAPIER - Last Filed: 08/22/20 07:58> - Discharge Admitting Provider: Chelly (Hospitalist) Unit Admitted: Medical Floor <MU MI - Last Filed: 08/22/20 09:53> - Discharge Clinical Impression: Back pain Qualifiers: Back pain location: low back pain Chronicity: chronic Back pain laterality: left Sciatica presence: without sciatica Qualified Code(s): M54.5 - Low back pain; G89.29 - Other chronic pain Metastatic cancer Qualifiers: Area of secondary neoplastic involvement: other site Qualified Code(s): C79.89 - Secondary malignant neoplasm of other specified sites Condition: Stable Disposition: ADMITTED INPATIENT Referrals: CARLTON DAVENPORT NP-C [Primary Care Provider] - Follow up as needed
[2020-08-22 07:54] LABS: ABSOLUTE LYMPHOCYTES (AUTO) 0.5 10^3/uL (0.5-4.7); ABSOLUTE MONOCYTES (AUTO) 0.6 10^3/uL (0.1-1.4); ABSOLUTE NEUT (AUTO) 7.6 10^3/uL (1.7-8.2); BASOPHILS % (AUTO) 0.5 % (0-2); EOSINOPHILS % (AUTO) 0.5 % (0-6); HEMATOCRIT 37.3 % (37.9-51.0); HEMOGLOBIN 12.6 g/dL (13.5-17.0); LYMPHOCYTES % (AUTO) 6.1 % (13-45); MEAN CORPUSCULAR HEMOGLOBIN 28.3 pg (27.0-33.4); MEAN CORPUSCULAR HGB CONC 33.8 g/dL (32.0-36.0); MEAN CORPUSCULAR VOLUME 84 fl (80-97); MONOCYTES % (AUTO) 6.7 % (3-13); PLATELET COUNT 575 10^3/uL (150-450); RED BLOOD COUNT 4.46 10^6/uL (4.35-5.55); RED CELL DISTRIBUTION WIDTH 13.4 % (11.5-14.0); SEGMENTED NEUTROPHILS % (AUTO) 86.2 % (42-78); TOTAL CELLS COUNTED % (AUTO) 100 %; WHITE BLOOD COUNT 8.8 10^3/uL (4.0-10.5)
[2020-08-22 08:10] LABS: ALBUMIN 3.6 g/dL (3.5-5.0); ALKALINE PHOSPHATASE 156 U/L (38-126); ANION GAP 8 (5-19); ASPARTATE AMINO TRANSFERASE 26 U/L (17-59); BILIRUBIN,DIRECT 0.3 mg/dL (0.0-0.4); BILIRUBIN,TOTAL 0.4 mg/dL (0.2-1.3); BLOOD UREA NITROGEN 24 mg/dL (7-20); CALCIUM 8.7 mg/dL (8.4-10.2); CARBON DIOXIDE 27 mmol/L (22-30); CHLORIDE 97 mmol/L (98-107); GLUCOSE 145 mg/dL (75-110); POTASSIUM 4.1 mmol/L (3.6-5.0); TOTAL PROTEIN 6.5 g/dL (6.3-8.2)
--- NOTE | 2020-08-22 08:18 | RADIOLOGY REPORT (SQ) ---
EXAM DESCRIPTION: CT ABD/PELVIS NO ORAL OR IV IMAGES COMPLETED DATE/TIME: 08/22/2020 7:54 am REASON FOR STUDY: flank pain COMPARISON: 04/30/2020 TECHNIQUE: CT scan of the abdomen and pelvis performed without intravenous or oral contrast. Images reviewed with lung, soft tissue, and bone windows. Reconstructed coronal and sagittal MPR images revi ewed. All images stored on PACS. All CT scanners at this facility use dose modulation, iterative reconstruction, and/or weight based d osing when appropriate to reduce radiation dose to as low as reasonably achievable (ALARA). [facility]: Dose Right [facility]: CareDose [facility]: Dose Right [facility]: Teradose 4D [facility]: Smart [employer] RADIATION DOSE: CT Rad equipment meets quality standard of care and radiation dose reduction techniq ues were employed. CTDIvol: 7.4 mGy. DLP: 397 mGy-cm.mGy. LIMITATIONS: None. FINDINGS: LOWER CHEST: Interval development of innumerable pulmonary nodules. Large right effusion and moderate left effusion. NON-CONTRASTED LIVER, SPLEEN, ADRENALS: Vague low-density lesions in the liver. Not seen previously. Limited by lack of IV contrast. No adrenal masses. Spleen is unremarkable. PANCREAS: No masses. No peripancreatic inflammatory changes. GALLBLADDER: No identified stones by CT criteria. No inflammatory changes to suggest cholecystitis. RIGHT KIDNEY AND URETER: No suspicious masses. Assessment limited by lack of IV contrast. No signif icant calcifications. No hydronephrosis or hydroureter. LEFT KIDNEY AND URETER: Significant increase in the para aortic adenopathy on the left. Extensive. He ureter oral mass extending into the psoas muscles. No significant calcifications. There is an indwelling left ureteral stent. Mild hydronephrosis. AORTA AND RETROPERITONEUM: No aneurysm. Extensive adenopathy and mass in that the left psoas muscle. BOWEL AND PERITONEAL CAVITY: No fluid. Diverticulosis without diverticulitis. APPENDIX: Normal. PELVIS, BLADDER, AND ABDOMINAL WALL:Distal stent in the bladder which decompressed. Prostatic bed se eds. BONES: No significant findings. OTHER: No other significant finding. IMPRESSION: Interval development of innumerable pulmonary nodules, with large right and smaller left pleural effusions. Highly suspicious for diffuse metastatic disease. Marked increase in the left para aortic mass and adenopathy extending from the level of the left kidn ey to the pelvis. Extension into the left psoas muscle. Indwelling left ureteral stent with mild hydronephrosis. COMMENT: Quality ID # [id number]: Final reports with documentation of one or more dose reduction techniques (e.g., Automated exposure control, adjustment of the mA and/or kV according to patient size, use of iterative reconstruction technique) TECHNICAL DOCUMENTATION: JOB ID: [id number] 2010 [employer]- All Rights Reserved Reading location - IP/workstation name: [id number]
[2020-08-22 08:26] LABS: APPEARANCE,URINE SLIGHTLY-CLOUDY; BILIRUBIN,URINE SMALL (NEGATIVE); COLOR,URINE AMBER; GLUCOSE, URINE NEGATIVE (NEGATIVE); KETONES,URINE TRACE mg/dL (NEGATIVE); LEUKOCYTE ESTERASE,URINE TRACE (NEGATIVE); NITRITE,URINE NEGATIVE (NEGATIVE); PROTEIN,URINE 100 mg/dL (NEGATIVE); URINE SPECIFIC GRAVITY 1.035
[2020-08-22] MEDS ORDERED: NORMAL SALINE 1000 ML 1,000 ML IV ONE (09:02)
[2020-08-22] MEDS ORDERED: METHYLPREDNISOLONE INJ 125 MG/2 ML SDV IV ONE (09:51)
[2020-08-22] MEDS ORDERED: FENTANYL CITRATE INJ/PF 100 MCG/2 ML AMPUL IV PRN (10:46)
[2020-08-22] MEDS ORDERED: ACETAMINOPHEN 325 MG TABLET PO PRN (10:51)
[2020-08-22] MEDS ORDERED: ONDANSETRON 4 MG TAB.RAPDIS PO PRN (10:51)
[2020-08-22] MEDS ORDERED: IPRATROPIUM/ALBUTEROL 0.5-2.5 MG/3 ML AMPUL NEB PRN (10:51)
[2020-08-22] MEDS ORDERED: MAG HYDROX/AL HYDROX/SIMETH SUSP 30 ML UDCUP PO PRN (10:51)
[2020-08-22] MEDS ORDERED: PROMETHAZINE HCL INJ 25 MG/1 ML VIAL IV PRN (10:51)
[2020-08-22] MEDS ORDERED: PROMETHAZINE HCL 25 MG TABLET PO PRN (10:51)
[2020-08-22] MEDS ORDERED: MAGNESIUM HYDROXIDE SUSP 30 ML UDCUP PO PRN (10:51)
[2020-08-22] MEDS ORDERED: FENTANYL 50 MCG/HR PATCH.TD72 TD SCH (11:00)
[2020-08-22] MEDS ORDERED: FENTANYL 25 MCG/HR PATCH.TD72 TD SCH (11:15)
[2020-08-22] MEDS: HEPARIN SOD (PORCINE) 5,000 UNIT/ML 1 ML VIAL SUBCUT SCH ×2 (13:14→22:52)
[2020-08-22] MEDS: FENTANYL CITRATE INJ/PF 100 MCG/2 ML AMPUL IV PRN ×2 (13:14→17:09)
[2020-08-22] MEDS: METHYLPREDNISOLONE INJ 125 MG/2 ML SDV IV SCH ×2 (13:14→22:52)
--- NOTE | 2020-08-22 13:46 | PDOC H&P ---
History of Present Illness Admission Date/PCP: 08/22/20 10:00 NEGIN NORTON History of Present Illness: JENN CARMEN is a 60 year old male past medical history of prostate cancer diagnosed in 2018 status post radiation and Lupron injection presenting to ED complaining of intractable pain to his left lower back, bilateral groins, testicles and proximal left lower extremity. Patient is stating that he has been having this pain since April 2020, and has been managed with p.o. dilated but for the last 2 days he is having extremely severe pain not controlled with home dose of Dilantin, pain is explained as a deep constant pain, 5/5 on severity scale, worse with any type of movement, not alleviated with p.o. Dilaudid, associated with left proximal lower extremity anterior aspect numbness and tingling. Denies any urinary retention, loss of bladder control, saddle anesthesia, he is able to walk however he avoids walking due to severe pain, denies any fever, chills, nausea, vomiting, diarrhea, constipation, shortness of breath. In ED CT abdomen pelvis showed interval development of innumerable pulmonary nodules, with large right and small left pleural effusion, highly suspicious for diffuse metastatic disease. Marked increase in the left periaortic mass and adenopathy extending from the level of the left kidney to the pelvis, extension into the left psoas muscle, indwelling left ureteral stent with mild hydronephrosis. Past Medical History Cardiac Medical History: Reports: Hypertension Social History Smoking Status: Never Smoker Electronic Cigarette use?: No Family History Family History: Reviewed & Not Pertinent Parental Family History Reviewed: Yes Children Family History Reviewed: Yes Sibling(s) Family History Reviewed.: Yes Medication/Allergy Home Medications: Hydromorphone HCl [Dilaudid 2 mg Tablet] 2 mg PO Q4HP PRN #7 tablet 06/20/20 Ondansetron [Zofran Odt 4 mg Tablet] 1 - 2 tab PO Q4H PRN #15 tab.rapdis 06/20/20 Allergies/Adverse Reactions: No Known Allergies Allergy (Verified 05/21/20 10:51) Review of Systems Review of Systems: as per hpi Physical Exam Vital Signs: Temp Pulse Resp BP Pulse Ox 98.6 F 65 16 124/74 95 08/22/20 12:19 08/22/20 12:19 08/22/20 12:19 08/22/20 12:19 08/22/20 12:19 Intake & Output 08/21/20 08/22/20 08/23/20 06:59 06:59 06:59 Weight 81.647 kg General appearance: PRESENT: severe distress, other - Laying in right lateral decubitus position, appears to be in severe pain Respiratory exam: PRESENT: clear to auscultation joana. ABSENT: rales, rhonchi, wheezes Cardiovascular exam: PRESENT: RRR, tachycardia. ABSENT: bradycardia, clicks, diastolic murmur, gallop, irregular rhythm, rubs, +S1, +S2, systolic murmur, other GI/Abdominal exam: PRESENT: normal bowel sounds, soft. ABSENT: distended, guarding, mass, organolmegaly, rebound, tenderness Musculoskeletal exam: PRESENT: tenderness - Point tenderness over lumbar and sacral area. Neurological exam: PRESENT: alert, awake, oriented to person, oriented to place, oriented to time, oriented to situation, CN II-XII grossly intact. ABSENT: motor sensory deficit - Lower extremity examination limited due to severe pain. Skin exam: PRESENT: dry, intact, warm. ABSENT: cyanosis, rash Results Laboratory Results: 08/22/20 07:40 08/22/20 07:40 08/22/20 08/22/20 08/22/20 07:40 07:40 07:40 WBC 8.8 RBC 4.46 Hgb 12.6 L Hct 37.3 L MCV 84 MCH 28.3 MCHC 33.8 RDW 13.4 Plt Count 575 H Seg Neutrophils % 86.2 H Sodium 132.1 L Potassium 4.1 Chloride 97 L Carbon Dioxide 27 Anion Gap 8 BUN 24 H Creatinine 1.33 H Est GFR ( Amer) > 60 Glucose 145 H Calcium 8.7 Total Bilirubin 0.4 AST 26 Alkaline Phosphatase 156 H Total Protein 6.5 Albumin 3[address] Urine Appearance SLIGHTLY-CLOUDY Urine pH 6.0 Ur Specific [place] 1.035 Urine Protein 100 H Urine Glucose (UA) NEGATIVE Urine Ketones TRACE H Urine Blood NEGATIVE Urine Nitrite NEGATIVE Ur Leukocyte Esterase TRACE H Urine WBC (Auto) 6 Urine RBC (Auto) 2 Impressions: Abdomen/Pelvis CT 08/22/20 07:21 IMPRESSION: Interval development of innumerable pulmonary nodules, with large right and smaller left pleural effusions. Highly suspicious for diffuse metastatic disease. Marked increase in the left para aortic mass and adenopathy extending from the level of the left kidney to the pelvis. Extension into the left psoas muscle. Indwelling left ureteral stent with mild hydronephrosis. Assessment and Plan - Diagnosis (1) Intractable pain Is this a current diagnosis for this admission?: Yes Plan: Due to metastatic prostate cancer. Complaining of severe pain to left sacrum, groins, anterior proximal left lower extremity pain. CT abdomen pelvis positive for extensive metastasis. Fentanyl patch with as needed fentanyl IV as needed, while monitoring for respiratory depression and fall. IV Solu-Medrol, MRI lumbar spine to rule out e.. Pain management consult. (2) Prostate cancer Is this a current diagnosis for this admission?: Yes Plan: Diagnosed in 2018. Status post Lupron injection and radiation. Oncology consulted. Pending recommendations. (3) Hypertension Is this a current diagnosis for this admission?: Yes Plan: Resume home meds. Adjust meds as needed. (4) Metastatic cancer Qualifiers: Area of secondary neoplastic involvement: other site Qualified Code(s): C79.89 - Secondary malignant neoplasm of other specified sites Is this a current diagnosis for this admission?: Yes Plan: Due to underlying prostate cancer. Plan as per above. (5) Acute kidney injury superimposed on CKD Is this a current diagnosis for this admission?: Yes Plan: Prerenal due to low p.o. intake. Cautious volume decision guided by volume status. Monitor volume status and electrolytes, replace electrolytes as needed. Avoid nephrotoxic meds. - Time Time Spent with patient: 35 or more minutes Anticipated Discharge Disposition: Home with Home Health Anticipated Discharge Timeframe: within 72 hours
[2020-08-22] MEDS: VENLAFAXINE HCL 75 MG CAP.SR.24H PO SCH (17:09)
[2020-08-22] MEDS: DOCUSATE SODIUM 100 MG CAPSULE PO SCH (17:09)
[2020-08-22] MEDS: ALPRAZOLAM 0.5 MG TABLET PO SCH ×2 (17:09→22:52)
[2020-08-22] MEDS ORDERED: ALPRAZOLAM 0.5 MG TABLET PO SCH (18:00)
[2020-08-22] MEDS ORDERED: HYDROMORPHONE HCL INJ/PF 2 MG/ML AMPULE IV PRN (18:26)
[2020-08-22] MEDS: HYDROMORPHONE HCL INJ/PF 2 MG/ML AMPULE IV PRN ×2 (19:59→22:57)
[2020-08-22] MEDS: CARISOPRODOL 350 MG TABLET PO SCH (20:06)
[2020-08-22] MEDS: NORMAL SALINE 1000 ML 1,000 ML IV PRN (20:06)
[2020-08-22] MEDS ORDERED: CARISOPRODOL 350 MG TABLET PO SCH (22:00)
[2020-08-22] MEDS: FAMOTIDINE 20 MG TABLET PO SCH (22:51)
[2020-08-22] MEDS: TEMAZEPAM 15 MG CAPSULE PO PRN (23:09)
[2020-08-23] MEDS: HYDROMORPHONE HCL INJ/PF 2 MG/ML AMPULE IV PRN ×9 (02:39→21:35)
[2020-08-23] MEDS: NORMAL SALINE 1000 ML 1,000 ML IV PRN ×3 (04:08→19:26)
[2020-08-23] MEDS: METHYLPREDNISOLONE INJ 125 MG/2 ML SDV IV SCH ×3 (05:32→21:13)
[2020-08-23] MEDS: HEPARIN SOD (PORCINE) 5,000 UNIT/ML 1 ML VIAL SUBCUT SCH ×3 (05:33→21:13)
[2020-08-23 07:19] LABS: ANION GAP 10 (5-19); BLOOD UREA NITROGEN 23 mg/dL (7-20); CALCIUM 7.5 mg/dL (8.4-10.2); CARBON DIOXIDE 22 mmol/L (22-30); CHLORIDE 99 mmol/L (98-107); GLUCOSE 133 mg/dL (75-110); POTASSIUM 4.5 mmol/L (3.6-5.0)
[2020-08-23] MEDS: CARISOPRODOL 350 MG TABLET PO SCH ×3 (08:25→21:16)
--- NOTE | 2020-08-23 09:26 | PDOC CONSULTATION ---
Consultation Consult Date: 08/23/20 Provider Consulted: KATHERINE CONCEPCION Consult reason:: Hematology/Oncology consultation was requested for patient with history of prostate cancer and new evidence of metastatic disease. History of Present Illness Admission Date/PCP: 08/22/20 10:00 NEGIN NORTON History of Present Illness: JENN CARMEN is a 60 year old male with history of metastatic prostate cancer, but he has been on treatment for this and his PSA continues to DECREASE most recent Jul 2020 was 0.3. He initially presented with back pain in Apr. At that time, CT scans and MRI thoracic and lumbar spine showed no evidence of cord compression, but mild lymphadenopathy with hydronephrosis. His pain has progressed, without any further evidence of progression of prostate cancer. He was referred to pain management and is scheduled to have steroid injection to the back later this week. However, he presented to the ED with numbness in his left leg and increased groin pain. New CT now shows a large psoas mass with lymphadenopathy. MRI was attempted yesterday, but patient was in too much pain. He also states that he has had unintentional weight loss of >20 LBS in the last 2 months. Today, he states that pain is controlled with the dilaudid. He has no appetite, but denies any other problems. Past Medical History Cardiac Medical History: Reports: Hyperlipidema, Hypertension Malignancy Medical History: Reports: Other - prostate cancer Psychiatric Medical History: Reports: Depression, General Anxiety Disorder, Post Traumatic Stress Disorder Past Surgical History Past Surgical History: Reports: Other - Left ureteral stent TURP Social History Occupation: Disabled. Smoking Status: Never Smoker Electronic Cigarette use?: No Frequency of Alcohol Use: None Hx Recreational Drug Use: No Drugs: None Hx Prescription Drug Abuse: No Past Social History Note: Single, no children. Family History Parental Family History Reviewed: Yes - Father of [place] age 55 Children Family History Reviewed: NA Sibling(s) Family History Reviewed.: Yes - Sister of CVA. Medication/Allergy Home Medications: Alprazolam [Xanax] 0.5 mg PO QID 08/22/20 Carisoprodol [Soma 350 Mg Tablet] 350 mg PO BID 08/22/20 Carisoprodol [Soma 350 Mg Tablet] 350 mg PO QHS 08/22/20 Ergocalciferol (Vitamin D2) [Drisdol 50,000 Unit (1.25MG) Capsule] 50,000 unit PO TELLO@1000 08/22/20 Hydromorphone HCl [Dilaudid] 4 mg PO Q6HP PRN 08/22/20 Lisinopril/Hydrochlorothiazide [Lisinopril-Hctz 20-25 mg Tab] 1 each PO DAILY 08/22/20 Lovastatin [Altoprev] 40 mg PO QHS 08/22/20 Venlafaxine HCl ER [Effexor Xr 75 mg Cap.sr] 75 mg PO DAILY 08/22/20 Allergies/Adverse Reactions: No Known Allergies Allergy (Verified 05/21/20 10:51) Review of Systems Constitutional: PRESENT: weight loss. ABSENT: fever(s), headache(s) Eyes: ABSENT: visual disturbances Ears: ABSENT: hearing changes Nose, Mouth, and Throat: ABSENT: sore throat Cardiovascular: ABSENT: chest pain Respiratory: ABSENT: dyspnea Gastrointestinal: ABSENT: abdominal pain, constipation Genitourinary: PRESENT: other - groin pain. ABSENT: dysuria Musculoskeletal: PRESENT: back pain Neurological: PRESENT: numbness, paresthesias. ABSENT: frequent falls, memory loss Psychiatric: PRESENT: anxiety, depression Hematologic/Lymphatic: ABSENT: easy bleeding Physical Exam Vital Signs: Temp Pulse Resp BP Pulse Ox 98.4 F 85 16 115/71 93 08/22/20 23:20 08/22/20 23:20 08/22/20 23:20 08/22/20 23:20 08/22/20 23:20 Intake & Output 08/22/20 08/23/20 08/24/20 06:59 06:59 06:59 Intake Total 1200 Output Total 350 Balance 850 Weight 81.647 kg 80.1 kg General appearance: PRESENT: no acute distress, well-developed, well-nourished Exam: 60 year old male. Head exam: PRESENT: normocephalic Eye exam: PRESENT: EOMI, PERRLA Mouth exam: PRESENT: moist, tongue midline Neck exam: ABSENT: lymphadenopathy, tenderness Respiratory exam: PRESENT: clear to auscultation joana, unlabored Cardiovascular exam: PRESENT: RRR GI/Abdominal exam: PRESENT: soft. ABSENT: tenderness Extremities exam: PRESENT: +1 edema Neurological exam: PRESENT: alert, awake, other - Full exam was deferred due to pain. Psychiatric exam: PRESENT: appropriate affect Skin exam: PRESENT: normal color Results Laboratory Results: 08/22/20 07:40 08/23/20 05:28 08/23/20 05:28 Sodium 131.4 L Potassium 4.5 Chloride 99 Carbon Dioxide 22 Anion Gap 10 BUN 23 H Creatinine 0.94 Est GFR ( Amer) > 60 Glucose 133 H Calcium 7.5 L Magnesium 2.0 Impressions: Abdomen/Pelvis CT 08/22/20 07:21 IMPRESSION: Interval development of innumerable pulmonary nodules, with large right and smaller left pleural effusions. Highly suspicious for diffuse metastatic disease. Marked increase in the left para aortic mass and adenopathy extending from the level of the left kidney to the pelvis. Extension into the left psoas muscle. Indwelling left ureteral stent with mild hydronephrosis. Status: Image reviewed by me Assessment & Plan - Diagnosis (1) Intractable pain Is this a current diagnosis for this admission?: Yes Plan: Duragesic started. Will increase to desired pain control. Continue Dilaudid PRN for now. I agree with the steroids and plan for MRI spine to rule out cord compression. (2) Prostate cancer Is this a current diagnosis for this admission?: Yes Plan: His PSA levels have been normal. scans in Apr showed no evidence of metastatic prostate cancer. Will continue current treatment for now. (3) Mass of psoas muscle Is this a current diagnosis for this admission?: Yes Plan: I cannot be sure that this is metastatic prostate cancer and would need biopsy of the new mass/LNs to confirm. There was no evidence of bone mets on recent scans. Consider consulting urology, as he is well known to them and has had ureteral stent recently. - Plan Summary Plan Summary: Patient was discussed with Dr. Spaulding.
--- NOTE | 2020-08-23 09:35 | RADIOLOGY REPORT (SQ) ---
EXAM DESCRIPTION: MRI LUMBAR SPINE WITHOUT IMAGES COMPLETED DATE/TIME: 08/23/2020 9:03 am REASON FOR STUDY: Met Prostate CA, r/o cord compression. COMPARISON: MRI of the lumbar spine from 04/30/[address] of the abdomen and pelvis without contrast from 08/22/2020. TECHNIQUE: Sagittal and Axial imaging includes T1, T2, STIR and gradient echo sequences. Coronal T2/ HASTE imaging. LIMITATIONS: None. FINDINGS: VISUALIZED UPPER ABDOMEN: No acute gross abnormality. SEGMENTATION: There are 5 lumbar-type vertebral bodies. There is no transitional segment at the lumb osacral junction. ALIGNMENT: Unchanged grade 1 retrolisthesis of L5 relative to S1. VERTEBRAE: Intact. BONE MARROW: Diffuse high T1/ high T2 marrow signal within L5 and throughout the sacrum consistent wi th yellow marrow. There are new low T1 signal metastatic lesions within the L2, L3 and L4 vertebral bodies. The low T2 signal lesions along the inferior endplate of L5 are unchanged and could represen t Schmorl's nodes. DISC SIGNAL: The L5-S1 intervertebral disc is narrowed and desiccated. POSTERIOR ELEMENTS: Intact. There is no pars interarticularis defect. HARDWARE: Double-J ureteral stent in place on the left. CORD AND CONUS: The conus medullaris terminates at the level of L1-L2 and it is normal in caliber and signal intensity. SOFT TISSUES: Infiltrative left-sided retroperitoneal paraspinal mass/adenopathy from the level of L2 -L3 to L4-L5 that involves the psoas musculature and results in severe left-sided hydronephrosis. L1-L2: No spinal or foraminal stenosis. L2-L3: No spinal or foraminal stenosis. L3-L4: No spinal or foraminal stenosis. L4-L5: Broad-based disc bulge that encroaches on the inferior aspect of the neuroforamina without mas s effect upon the nerve roots and degeneration of the facet joints. There is no associated spinal or foraminal stenosis. L5-S1: Disc osteophyte complex eccentric to the left that encroaches on the inferior aspect of the ne uroforamina without mass effect upon the nerve roots and degeneration of the facet joints. These fin dings result in mild to moderate bilateral foraminal stenosis. There is no associated spinal stenosi s. LOWER THORACIC: No stenosis. SACRUM: Intact. OTHER: No other findings. IMPRESSION: 1. New low T1 signal metastatic lesions within the L2, L3 and L4 vertebral bodies. 2. Infiltrative left-sided retroperitoneal paraspinal mass/adenopathy from the level of L2-L3 to L4-L 5 that involves the psoas musculature and results in severe left-sided hydronephrosis. TECHNICAL DOCUMENTATION: JOB ID: [id number] 2010 [employer]- All Rights Reserved Reading location - IP/workstation name: [email or web address]
[2020-08-23] MEDS: FAMOTIDINE 20 MG TABLET PO SCH ×2 (09:53→21:13)
[2020-08-23] MEDS: DOCUSATE SODIUM 100 MG CAPSULE PO SCH ×2 (09:53→17:04)
[2020-08-23] MEDS: ALPRAZOLAM 0.5 MG TABLET PO SCH ×4 (09:54→21:13)
--- NOTE | 2020-08-23 10:43 | PDOC PROGRESS REPORT ---
Subjective Date:: 08/23/20 Subjective:: JENN CARMEN is a 60 year old male past medical history of prostate cancer diagnosed in 2018 status post radiation and Lupron injection presenting to ED complaining of intractable pain to his left lower back, bilateral groins, testicles and proximal left lower extremity. Patient is stating that he has been having this pain since April 2020, and has been managed with p.o. dilated but for the last 2 days he is having extremely severe pain not controlled with home dose of Dilantin, pain is explained as a deep constant pain, 5/5 on severity scale, worse with any type of movement, not alleviated with p.o. Dilaudid, associated with left proximal lower extremity anterior a spect numbness and tingling. Denies any urinary retention, loss of bladder control, saddle anesthesia, he is able to walk however he avoids walking due to severe pain, denies any fever, chills, nausea, vomiting, diarrhea, constipation, shortness of breath. In ED CT abdomen pelvis showed interval development of innumerable pulmonary nodules, with large right and small left pleural effusion, highly suspicious for diffuse metastatic disease. Marked increase in the left periaortic mass and adenopathy extending from the level of the left kidney to the pelvis, extension into the left psoas muscle, indwelling left ureteral stent with mild hydronephrosis. 08/23/2020. No acute events overnight. Patient is still complaining of significant intractable pain, did not respond very well with fentanyl, prefers Dilaudid, denies any chest pain, nausea, vomiting. Patient is status post lumbar spine MRI which shows metastatic lesion to the bones and right psoas muscle. Reason For Visit: INTRACTABLE PAIN,METASTATIC PROSTATE CANCER Physical Exam Vital Signs: Temp Pulse Resp BP Pulse Ox 98.0 F 86 17 152/88 H 91 L 08/23/20 07:59 08/23/20 07:59 08/23/20 07:59 08/23/20 07:59 08/23/20 07:59 Intake & Output 08/22/20 08/23/20 08/24/20 06:59 06:59 06:59 Intake Total 1200 120 Output Total 350 Balance 850 120 Weight 81.647 kg 80.1 kg General appearance: PRESENT: mild distress Head exam: PRESENT: atraumatic, normocephalic Neck exam: ABSENT: carotid bruit, JVD, lymphadenopathy, thyromegaly Respiratory exam: PRESENT: clear to auscultation joana. ABSENT: rales, rhonchi, wheezes Cardiovascular exam: PRESENT: RRR. ABSENT: diastolic murmur, rubs, systolic murmur GI/Abdominal exam: PRESENT: normal bowel sounds, soft. ABSENT: distended, guarding, mass, organolmegaly, rebound, tenderness Extremities exam: PRESENT: full ROM, other. ABSENT: calf tenderness, clubbing, pedal edema Neurological exam: PRESENT: alert, awake, oriented to person, oriented to place, oriented to time, oriented to situation, CN II-XII grossly intact. ABSENT: motor sensory deficit Results Laboratory Results: 08/22/20 07:40 08/23/20 05:28 08/23/20 05:28 Sodium 131.4 L Potassium 4.5 Chloride 99 Carbon Dioxide 22 Anion Gap 10 BUN 23 H Creatinine 0.94 Est GFR ( Amer) > 60 Glucose 133 H Calcium 7.5 L Magnesium 2.0 Impressions: Abdomen/Pelvis CT 08/22/20 07:21 IMPRESSION: Interval development of innumerable pulmonary nodules, with large right and smaller left pleural effusions. Highly suspicious for diffuse metastatic disease. Marked increase in the left para aortic mass and adenopathy extending from the level of the left kidney to the pelvis. Extension into the left psoas muscle. Indwelling left ureteral stent with mild hydronephrosis. Lumbar Spine MRI 08/23/20 00:00 IMPRESSION: 1. New low T1 signal metastatic lesions within the L2, L3 and L4 vertebral bodies. 2. Infiltrative left-sided retroperitoneal paraspinal mass/adenopathy from the level of L2-L3 to L4-L5 that involves the psoas musculature and results in severe left-sided hydronephrosis. Assessment and Plan - Diagnosis (1) Intractable pain Is this a current diagnosis for this admission?: Yes Plan: No significant changes. Does not responds well to fentanyl. Prefers IV Dilaudid. Due to metastatic prostate cancer. Complaining of severe pain to left sacrum, groins, anterior proximal left lower extremity pain. 08/22/2020. CT abdomen pelvis positive for extensive metastasis. 08/23/2020. MRI lumbar spine new low T1 signal metastatic lesions within the L2, L3 and L4 vertebral bodies. 2 infiltrative left-sided retroperitoneal paraspinal mass/adenopathy from the level of L2-L3 to L4-L5 does not involve the psoas musculature. Severe left-sided hydronephrosis Continue fentanyl patch with as needed Dilaudid as needed, while monitoring for respiratory depression and fall. IV Solu-Medrol Pending needle biopsy of left psoas muscle. Oncology on board. Recommendations noted. (2) Prostate cancer Is this a current diagnosis for this admission?: Yes Plan: Diagnosed in 2018. Status post Lupron injection and radiation. Oncology consulted. Pending recommendations. (3) Hypertension Is this a current diagnosis for this admission?: Yes Plan: Euvolemic. Normotensive. Monitor vitals. As needed IV labetalol. Adjust meds as needed. (4) Metastatic cancer Qualifiers: Area of secondary neoplastic involvement: other site Qualified Code(s): C79.89 - Secondary malignant neoplasm of other specified sites Is this a current diagnosis for this admission?: Yes Plan: Due to underlying prostate cancer. Plan as per above. (5) Acute kidney injury superimposed on CKD Is this a current diagnosis for this admission?: Yes Plan: Resolved. Prerenal due to low p.o. intake. Cautious volume decision guided by volume status. Monitor volume status and electrolytes, replace electrolytes as needed. Avoid nephrotoxic meds. (6) Hydronephrosis Qualifiers: Hydronephrosis type: unspecified Qualified Code(s): N13.30 - Unspecified hydronephrosis Is this a current diagnosis for this admission?: Yes Plan: History of hydronephrosis status post left ureteral stent placement. MRI lumbar spine shows severe left-sided hydronephrosis Monitor renal very function closely. Unfortunately no urology consult available at [facility]. Consults urology and transfer if indicated. - Time Time Spent with patient: 25-34 minutes Anticipated Discharge Disposition: Home with Home Health Anticipated Discharge Timeframe: within 72 hours
[2020-08-23] MEDS ORDERED: CALCIUM GLUCONATE 1000 MG/10 ML INJ IV ONE (13:00)
[2020-08-23] MEDS: VENLAFAXINE HCL 75 MG CAP.SR.24H PO SCH ×2 (13:37→21:13)
[2020-08-23] MEDS: TEMAZEPAM 15 MG CAPSULE PO PRN (21:13)
[2020-08-24] MEDS: HYDROMORPHONE HCL INJ/PF 2 MG/ML AMPULE IV PRN ×9 (00:14→22:14)
[2020-08-24] MEDS: NORMAL SALINE 1000 ML 1,000 ML IV PRN ×3 (02:43→17:19)
[2020-08-24] MEDS: METHYLPREDNISOLONE INJ 125 MG/2 ML SDV IV SCH (05:26)
[2020-08-24] MEDS: HEPARIN SOD (PORCINE) 5,000 UNIT/ML 1 ML VIAL SUBCUT SCH ×3 (05:26→21:27)
[2020-08-24 06:06] LABS: ALBUMIN 3.1 g/dL (3.5-5.0); ALKALINE PHOSPHATASE 133 U/L (38-126); ANION GAP 9 (5-19); ASPARTATE AMINO TRANSFERASE 28 U/L (17-59); BILIRUBIN,DIRECT 0.2 mg/dL (0.0-0.4); BILIRUBIN,TOTAL 0.2 mg/dL (0.2-1.3); BLOOD UREA NITROGEN 28 mg/dL (7-20); CALCIUM 7.8 mg/dL (8.4-10.2); CARBON DIOXIDE 23 mmol/L (22-30); CHLORIDE 104 mmol/L (98-107); GLUCOSE 133 mg/dL (75-110); POTASSIUM 4.5 mmol/L (3.6-5.0); TOTAL PROTEIN 5.7 g/dL (6.3-8.2)
[2020-08-24] MEDS: CARISOPRODOL 350 MG TABLET PO SCH ×3 (07:58→21:27)
--- NOTE | 2020-08-24 08:48 | PDOC PROGRESS REPORT ---
Subjective Date:: 08/24/20 Subjective:: Patient still complains of pain. Now only able to lay on his right side. The p ain medications are not holding. He denies any other complaints today. No difficulty urinating or deficating. He still has numbness in his left thigh. Reason For Visit: INTRACTABLE PAIN,METASTATIC PROSTATE CANCER Physical Exam Vital Signs: Temp Pulse Resp BP Pulse Ox 98.1 F 75 17 129/80 H 90 L 08/24/20 07:55 08/24/20 07:23 08/24/20 07:23 08/24/20 07:23 08/24/20 07:23 Intake & Output 08/23/20 08/24/20 08/25/20 06:59 06:59 06:59 Intake Total 1200 4115 Output Total 350 725 Balance 850 3390 Weight 80.1 kg 79.2 kg General appearance: PRESENT: no acute distress Head exam: PRESENT: normocephalic Eye exam: PRESENT: EOMI Mouth exam: PRESENT: dry mucosa Respiratory exam: PRESENT: unlabored Extremities exam: ABSENT: pedal edema Neurological exam: PRESENT: alert, awake Skin exam: PRESENT: normal color Results Laboratory Results: 08/22/20 07:40 08/24/20 05:07 08/24/20 05:07 Sodium 135.8 L Potassium 4.5 Chloride 104 Carbon Dioxide 23 Anion Gap 9 BUN 28 H Creatinine 1.05 Est GFR ( Amer) > 60 Glucose 133 H Calcium 7.8 L Total Bilirubin 0.2 AST 28 Alkaline Phosphatase 133 H Total Protein 5.7 L Albumin 3.1 L Impressions: Abdomen/Pelvis CT 08/22/20 07:21 IMPRESSION: Interval development of innumerable pulmonary nodules, with large right and smaller left pleural effusions. Highly suspicious for diffuse metastatic disease. Marked increase in the left para aortic mass and adenopathy extending from the level of the left kidney to the pelvis. Extension into the left psoas muscle. Indwelling left ureteral stent with mild hydronephrosis. Lumbar Spine MRI 08/23/20 00:00 IMPRESSION: 1. New low T1 signal metastatic lesions within the L2, L3 and L4 vertebral bodies. 2. Infiltrative left-sided retroperitoneal paraspinal mass/adenopathy from the level of L2-L3 to L4-L5 that involves the psoas musculature and results in severe left-sided hydronephrosis. Status: Image reviewed by me Assessment & Plan - Diagnosis (1) Intractable pain Is this a current diagnosis for this admission?: Yes Plan: I will increase the duragesic today and continue IV dilaudid. Continue steroids as well. I will change to PO dexamethasone. (2) Prostate cancer Is this a current diagnosis for this admission?: Yes Plan: Continue current treatment for now. His most recent PSA levels have been <1. However, if biopsy shows this is metastatic prostate cancer, then will change regimen and start new treatment. (3) Mass of psoas muscle Is this a current diagnosis for this admission?: Yes Plan: Again, I am not convinced that this is metastatic prostate cancer and could be a new sarcoma. I have discussed with interventional radiology. He is a candidate for needle biopsy of the mass, but there is not an interventional radiologist available today. I will go ahead and order the test, hopefully can be performed tomorrow. I have also discussed with Dr. Conti. He will be able to start radiation therapy to help with the nerve root compression and help the pain, but will try to wait another day or 2 until biopsy can be obtained. - Time Time Spent with patient: 25-34 minutes
[2020-08-24] MEDS: FAMOTIDINE 20 MG TABLET PO SCH ×2 (09:34→21:27)
[2020-08-24] MEDS: ALPRAZOLAM 0.5 MG TABLET PO SCH ×4 (09:34→21:27)
[2020-08-24] MEDS: DEXAMETHASONE 4 MG TABLET PO SCH ×2 (09:34→21:26)
[2020-08-24] MEDS: DOCUSATE SODIUM 100 MG CAPSULE PO SCH ×2 (09:34→17:19)
[2020-08-24] MEDS: FENTANYL 50 MCG/HR PATCH.TD72 TD SCH (09:35)
[2020-08-24] MEDS ORDERED: LIDOCAINE 5% (700 MG) TRANSDERMAL ADH..PATCH TP ONE ×2 (12:30→14:30)
[2020-08-24] MEDS: GABAPENTIN 100 MG CAPSULE PO SCH ×2 (13:24→21:27)
--- NOTE | 2020-08-24 18:57 | PDOC PROGRESS REPORT ---
Subjective Date:: 08/24/20 Subjective:: Patient was seen on morning rounds; he is found resting in bed on room air. He reports continued lower back pain radiating to his proximal left posterior thigh. He reports that his pain is currently uncontrolled with fentanyl patch and as needed Dilaudid. His patch was just increased this morning. We discussed the onset of the fentanyl would be likely this afternoon. He does asks about additional interventions to utilize until then. He is agreeable to escalating his nonnarcotic medications. Otherwise, he has no questions or concerns at this time. He denies fever, chills, chest pain, dyspnea, abdominal pain, nausea and vomiting. No concerns per nursing. Reason For Visit: INTRACTABLE PAIN,METASTATIC PROSTATE CANCER Physical Exam Vital Signs: Temp Pulse Resp BP Pulse Ox 97.7 F 75 17 145/82 H 92 08/24/20 16:07 08/24/20 16:07 08/24/20 16:07 08/24/20 16:07 08/24/20 16:07 Intake & Output 08/23/20 08/24/20 08/25/20 06:59 06:59 06:59 Intake Total 1200 4115 1968 Output Total 350 725 200 Balance 850 3390 1768 Weight 80.1 kg 79.2 kg General appearance: PRESENT: no acute distress, cooperative, well-developed, well-nourished - Overweight Head exam: PRESENT: atraumatic, normocephalic Eye exam: PRESENT: conjunctiva pink, EOMI, PERRLA. ABSENT: scleral icterus Mouth exam: PRESENT: moist, tongue midline Respiratory exam: PRESENT: clear to auscultation joana, symmetrical, other - Room air. ABSENT: rales, rhonchi, wheezes Cardiovascular exam: PRESENT: RRR, +S1, +S2. ABSENT: diastolic murmur, rubs, systolic murmur Pulses: PRESENT: normal dorsalis pedis pul Vascular exam: PRESENT: normal capillary refill Extremities exam: ABSENT: calf tenderness, clubbing, full ROM - BLE secondary to pain; L>R, pedal edema Neurological exam: PRESENT: alert, awake, oriented to person, oriented to place, oriented to time, oriented to situation, CN II-XII grossly intact. ABSENT: motor sensory deficit Psychiatric exam: PRESENT: appropriate affect, normal mood. ABSENT: homicidal ideation, suicidal ideation Skin exam: PRESENT: dry, intact, warm. ABSENT: cyanosis, rash Results Laboratory Results: 08/22/20 07:40 08/24/20 05:07 08/24/20 05:07 Sodium 135.8 L Potassium 4.5 Chloride 104 Carbon Dioxide 23 Anion Gap 9 BUN 28 H Creatinine 1.05 Est GFR ( Amer) > 60 Glucose 133 H Calcium 7.8 L Total Bilirubin 0.2 AST 28 Alkaline Phosphatase 133 H Total Protein 5.7 L Albumin 3.1 L 08/22/20 07:40 Clean Catch Midstream Urine Culture - Final Mixed Urogenital Suzi Impressions: Abdomen/Pelvis CT 08/22/20 07:21 IMPRESSION: Interval development of innumerable pulmonary nodules, with large right and smaller left pleural effusions. Highly suspicious for diffuse metastatic disease. Marked increase in the left para aortic mass and adenopathy extending from the l evel of the left kidney to the pelvis. Extension into the left psoas muscle. Indwelling left ureteral stent with mild hydronephrosis. Lumbar Spine MRI 08/23/20 00:00 IMPRESSION: 1. New low T1 signal metastatic lesions within the L2, L3 and L4 vertebral bodies. 2. Infiltrative left-sided retroperitoneal paraspinal mass/adenopathy from the level of L2-L3 to L4-L5 that involves the psoas musculature and results in severe left-sided hydronephrosis. Assessment and Plan - Diagnosis (1) Intractable pain Is this a current diagnosis for this admission?: Yes Plan: Likely due to metastatic prostate cancer. Complaining of severe pain to left sacrum, groins, anterior proximal left lower extremity pain. 08/22/2020. CT abdomen pelvis positive for extensive metastasis. 08/23/2020. MRI lumbar spine new low T1 signal metastatic lesions within the L2, L3 and L4 vertebral bodies. 2 infiltrative left-sided retroperitoneal paraspinal mass/adenopathy from the level of L2-L3 to L4-L5 does not involve the psoas musculature. Severe left-sided hydronephrosis Continue fentanyl patch; dose increased per Dr. Mercer today. Continue with as needed Dilaudid. Dexamethasone for nerve compression. Pending needle biopsy of left psoas muscle; radiation therapy following. Oncology on board. Recommendations noted. Non-opiate regiment escalated; lidoderm patches, gabapentin, tylenol, and toradol Nonpharmocological interventions. (2) Prostate cancer Is this a current diagnosis for this admission?: Yes Plan: Diagnosed in 2018. Status post Lupron injection and radiation. Oncology consulted. Planned psoas muscle biopsy tomorrow. (3) Hypertension Is this a current diagnosis for this admission?: Yes Plan: Euvolemic. Normotensive. Monitor vitals. Hold lisinopril/hctz r/t renal function. Provide appropriate pain control. Start amlodipine qHS. As needed IV labetalol. Adjust meds as needed. (4) Mass of psoas muscle Is this a current diagnosis for this admission?: Yes Plan: Planned biopsy tomorrow by Interventional Radiology. (5) Metastatic cancer Qualifiers: Area of secondary neoplastic involvement: other site Qualified Code(s): C79.89 - Secondary malignant neoplasm of other specified sites Is this a current diagnosis for this admission?: Yes Plan: Due to underlying prostate cancer. Plan as per above. (6) Acute kidney injury superimposed on CKD Is this a current diagnosis for this admission?: Yes Plan: Resolved. Prerenal due to low p.o. intake. Cautious volume decision guided by volume status. Monitor volume status and electrolytes, replace electrolytes as needed. Avoid nephrotoxic meds. (7) Hydronephrosis Qualifiers: Hydronephrosis type: unspecified Qualified Code(s): N13.30 - Unspecified hydronephrosis Is this a current diagnosis for this admission?: Yes Plan: History of hydronephrosis status post left ureteral stent placement. MRI lumbar spine shows severe left-sided hydronephrosis Monitor renal very function closely. Unfortunately no urology consult available at [facility]. Consults urology and transfer if indicated. - Time Time Spent with patient: 25-34 minutes Medications reviewed and adjusted accordingly: Yes Anticipated Discharge Disposition: Home, Self Care Anticipated Discharge Timeframe: TBD
[2020-08-24] MEDS: VENLAFAXINE HCL 75 MG CAP.SR.24H PO SCH (21:27)
[2020-08-24] MEDS: AMLODIPINE BESYLATE 5 MG TABLET PO SCH (21:27)
[2020-08-24] MEDS: TEMAZEPAM 15 MG CAPSULE PO PRN (21:28)
[2020-08-25] MEDS: HYDROMORPHONE HCL INJ/PF 2 MG/ML AMPULE IV PRN ×8 (00:15→21:06)
[2020-08-25] MEDS: GABAPENTIN 100 MG CAPSULE PO SCH ×3 (05:34→21:05)
[2020-08-25 06:45] LABS: HEMATOCRIT 32.1 % (37.9-51.0); HEMOGLOBIN 10.8 g/dL (13.5-17.0); MEAN CORPUSCULAR HEMOGLOBIN 28.7 pg (27.0-33.4); MEAN CORPUSCULAR HGB CONC 33.7 g/dL (32.0-36.0); MEAN CORPUSCULAR VOLUME 85 fl (80-97); PLATELET COUNT 440 10^3/uL (150-450); RED BLOOD COUNT 3.76 10^6/uL (4.35-5.55); RED CELL DISTRIBUTION WIDTH 13.7 % (11.5-14.0); WHITE BLOOD COUNT 8.3 10^3/uL (4.0-10.5)
[2020-08-25 07:00] LABS: PARTIAL THROMBOPLASTIN TIME 29.2 SEC (23.5-35.8)
[2020-08-25 07:04] LABS: INTERNATIONAL RATION (INR) 1.09; PROTHROMBIN TIME 14.3 SEC (11.4-15.4)
[2020-08-25 07:05] LABS: ANION GAP 5 (5-19); BLOOD UREA NITROGEN 27 mg/dL (7-20); CALCIUM 7.1 mg/dL (8.4-10.2); CARBON DIOXIDE 25 mmol/L (22-30); CHLORIDE 105 mmol/L (98-107); GLUCOSE 108 mg/dL (75-110); POTASSIUM 4.3 mmol/L (3.6-5.0)
[2020-08-25] MEDS ORDERED: MIDAZOLAM 2 MG/2 ML INJ ONE (09:16)
[2020-08-25] MEDS ORDERED: FENTANYL CITRATE INJ/PF 100 MCG/2 ML AMPUL ONE (09:17)
[2020-08-25] MEDS ORDERED: LIDOCAINE 5% (700 MG) TRANSDERMAL ADH..PATCH TP SCH (10:00)
[2020-08-25] MEDS: DOCUSATE SODIUM 100 MG CAPSULE PO SCH ×2 (10:25→17:11)
[2020-08-25] MEDS: CARISOPRODOL 350 MG TABLET PO SCH ×3 (10:25→21:17)
[2020-08-25] MEDS: FAMOTIDINE 20 MG TABLET PO SCH ×2 (10:25→21:06)
[2020-08-25] MEDS: DEXAMETHASONE 4 MG TABLET PO SCH ×2 (10:26→21:06)
[2020-08-25] MEDS: ALPRAZOLAM 0.5 MG TABLET PO SCH ×4 (10:26→21:06)
[2020-08-25] MEDS: LIDOCAINE 5% (700 MG) TRANSDERMAL ADH..PATCH TP SCH (10:27)
[2020-08-25] MEDS: ONDANSETRON HCL INJ/PF 4 MG/2 ML SDV IV PRN (10:32)
--- NOTE | 2020-08-25 10:36 | PDOC PROGRESS REPORT ---
Subjective Date:: 08/25/20 Subjective:: Patient is still in pain, but current medications are working. The lidoderm hel ped greatly. He denies any constipation or nausea. No itching. He is awaiting the biopsy, hopefully later this morning. He is currently NPO but is asking for a drink of water. Reason For Visit: INTRACTABLE PAIN,METASTATIC PROSTATE CANCER Physical Exam Vital Signs: Temp Pulse Resp BP Pulse Ox 97.7 F 90 18 147/81 H 93 08/25/20 08:00 08/25/20 08:00 08/25/20 08:00 08/25/20 08:00 08/25/20 08:00 Intake & Output 08/24/20 08/25/20 08/26/20 06:59 06:59 06:59 Intake Total 4115 2273 Output Total 725 1100 Balance 3390 1173 Weight 79.2 kg 80.2 kg General appearance: PRESENT: no acute distress Head exam: PRESENT: normocephalic Respiratory exam: PRESENT: unlabored Musculoskeletal exam: PRESENT: other - No change Neurological exam: PRESENT: alert, awake, oriented to person, oriented to place, oriented to time, oriented to situation Psychiatric exam: PRESENT: appropriate affect Skin exam: PRESENT: normal color Results Laboratory Results: 08/25/20 06:22 08/25/20 06:22 08/25/20 08/25/20 06:22 06:22 WBC 8.3 RBC 3.76 L Hgb 10.8 L Hct 32.1 L MCV 85 MCH 28.7 MCHC 33.7 RDW 13.7 Plt Count 440 Sodium 135.0 L Potassium 4.3 Chloride 105 Carbon Dioxide 25 Anion Gap 5 BUN 27 H Creatinine 0.94 Est GFR ( Amer) > 60 Glucose 108 Calcium 7.1 L 08/22/20 07:40 Clean Catch Midstream Urine Culture - Final Mixed Urogenital Suzi Impressions: Abdomen/Pelvis CT 08/22/20 07:21 IMPRESSION: Interval development of innumerable pulmonary nodules, with large right and smaller left pleural effusions. Highly suspicious for diffuse metastatic disease. Marked increase in the left para aortic mass and adenopathy extending from the level of the left kidney to the pelvis. Extension into the left psoas muscle. Indwelling left ureteral stent with mild hydronephrosis. Lumbar Spine MRI 08/23/20 00:00 IMPRESSION: 1. New low T1 signal metastatic lesions within the L2, L3 and L4 vertebral bodies. 2. Infiltrative left-sided retroperitoneal paraspinal mass/adenopathy from the level of L2-L3 to L4-L5 that involves the psoas musculature and results in sever e left-sided hydronephrosis. Assessment & Plan - Diagnosis (1) Intractable pain Is this a current diagnosis for this admission?: Yes Plan: We again discussed the fact that he has several different medications ordered and he must ask the nurses to give him the various agents. He will try the toradol and lidoderm in addition to the dilaudid. Duragesic was increased yesterday. (2) Prostate cancer Is this a current diagnosis for this admission?: Yes Plan: Continue current meds for now unless evidence that this is progression of the prostate cancer (3) Mass of psoas muscle Is this a current diagnosis for this admission?: Yes Plan: Hopefully will be able to have biopsy today. After biopsy, plan to start radiation therapy for pain control. - Time Time Spent with patient: 15-24 minutes
[2020-08-25] MEDS: KETOROLAC TROMETHAMINE INJ/PF 30 MG/1 ML SDV IV PRN (11:42)
[2020-08-25] MEDS: NORMAL SALINE 1000 ML 1,000 ML IV PRN (17:13)
--- NOTE | 2020-08-25 18:18 | PDOC PROGRESS REPORT ---
Subjective Date:: 08/25/20 Subjective:: Patient was seen on morning rounds after return from biopsy. he is found resting in bed on room air. He reports continued lower back pain radiating to his proximal left posterior thigh; however, improved today and is independently mobile w/ out of bed activities. Did have 1 episode of emesis today. Otherwise, he has no questions or concerns at this time. He denies fever, chills, chest pain, dyspnea, abdominal pain. No concerns per nursing. Reason For Visit: INTRACTABLE PAIN,METASTATIC PROSTATE CANCER Physical Exam Vital Signs: Temp Pulse Resp BP Pulse Ox 97.5 F 110 H 19 142/76 H 95 08/25/20 11:37 08/25/20 11:37 08/25/20 11:37 08/25/20 11:37 08/25/20 11:37 Intake & Output 08/24/20 08/25/20 08/26/20 06:59 06:59 06:59 Intake Total 4115 3273 Output Total 725 1100 Balance 3390 2173 Weight 79.2 kg 80.2 kg General appearance: PRESENT: no acute distress, cooperative, well-developed, well-nourished Head exam: PRESENT: atraumatic, normocephalic Eye exam: PRESENT: conjunctiva pink, EOMI, PERRLA. ABSENT: scleral icterus Mouth exam: PRESENT: moist, tongue midline Respiratory exam: PRESENT: clear to auscultation joana, symmetrical, unlabored, other - room air. ABSENT: rales, rhonchi, wheezes Cardiovascular exam: PRESENT: RRR. ABSENT: diastolic murmur, rubs, systolic murmur Vascular exam: PRESENT: normal capillary refill Extremities exam: PRESENT: full ROM, tenderness - LLE. ABSENT: calf tenderness, clubbing, pedal edema Musculoskeletal exam: PRESENT: ambulatory Neurological exam: PRESENT: alert, awake, oriented to person, oriented to place, oriented to time, oriented to situation, CN II-XII grossly intact. ABSENT: motor sensory deficit Psychiatric exam: PRESENT: appropriate affect, normal mood. ABSENT: homicidal ideation, suicidal ideation Skin exam: PRESENT: dry, intact, warm. ABSENT: cyanosis, rash Results Laboratory Results: 08/25/20 06:22 08/25/20 06:22 08/25/20 08/25/20 06:22 06:22 WBC 8.3 RBC 3.76 L Hgb 10.8 L Hct 32.1 L MCV 85 MCH 28.7 MCHC 33.7 RDW 13.7 Plt Count 440 Sodium 135.0 L Potassium 4.3 Chloride 105 Carbon Dioxide 25 Anion Gap 5 BUN 27 H Creatinine 0.94 Est GFR ( Amer) > 60 Glucose 108 Calcium 7.1 L Impressions: Abdomen/Pelvis CT 08/22/20 07:21 IMPRESSION: Interval development of innumerable pulmonary nodules, with large right and smaller left pleural effusions. Highly suspicious for diffuse metastatic disease. Marked increase in the left para aortic mass and adenopathy extending from the level of the left kidney to the pelvis. Extension into the left psoas muscle. Indwelling left ureteral stent with mild hydronephrosis. Lumbar Spine MRI 08/23/20 00:00 IMPRESSION: 1. New low T1 signal metastatic lesions within the L2, L3 and L4 vertebral bodies. 2. Infiltrative left-sided retroperitoneal paraspinal mass/adenopathy from the level of L2-L3 to L4-L5 that involves the psoas musculature and results in severe left-sided hydronephrosis. Assessment and Plan - Diagnosis (1) Intractable pain Is this a current diagnosis for this admission?: Yes Plan: Much improved. Complaining of severe pain to left sacrum, groins, anterior proximal left lower extremity pain. 08/22/2020. CT abdomen pelvis positive for extensive metastasis. 08/23/2020. MRI lumbar spine new low T1 signal metastatic lesions within the L2, L3 and L4 vertebral bodies. 2 infiltrative left-sided retroperitoneal paraspinal mass/adenopathy from the level of L2-L3 to L4-L5 does not involve the psoas musculature. Severe left-sided hydronephrosis Continue fentanyl patch; dose increased per Dr. Mercer today. Continue with as needed Dilaudid; decreased utilization today. Dexamethasone for nerve compression. Plan for radiation therapy; being arrangd by Dr. Mercer. Oncology on board. Recommendations noted. Non-opiate regiment escalated; lidoderm patches, gabapentin, tylenol, and toradol Nonpharmocological interventions. (2) Prostate cancer Is this a current diagnosis for this admission?: Yes Plan: Diagnosed in 2018. Status post Lupron injection and radiation. Psoas muscle biopsy completed; results pending. Primary plan per Oncology. (3) Hypertension Is this a current diagnosis for this admission?: Yes Plan: Improved today. Euvolemic. Monitor vitals. Hold lisinopril/hctz r/t renal function. Provide appropriate pain control. Continue amlodipine qHS. As needed IV labetalol. Adjust meds as needed. (4) Mass of psoas muscle Is this a current diagnosis for this admission?: Yes Plan: Biopsy completed; results pending. (5) Metastatic cancer Qualifiers: Area of secondary neoplastic involvement: other site Qualified Code(s): C79.89 - Secondary malignant neoplasm of other specified sites Is this a current diagnosis for this admission?: Yes Plan: Due to underlying prostate cancer. Plan as per above. (6) Acute kidney injury superimposed on CKD Is this a current diagnosis for this admission?: Yes Plan: Resolved. Prerenal due to low p.o. intake. Cautious volume decision guided by volume status. Monitor volume status and electrolytes, replace electrolytes as needed. Avoid nephrotoxic meds. (7) Hydronephrosis Qualifiers: Hydronephrosis type: unspecified Qualified Code(s): N13.30 - Unspecified hy dronephrosis Is this a current diagnosis for this admission?: Yes Plan: History of hydronephrosis status post left ureteral stent placement. MRI lumbar spine shows severe left-sided hydronephrosis Monitor renal very function closely. Unfortunately no urology consult available at [facility]. Consults urology and transfer if indicated. - Time Time Spent with patient: 25-34 minutes Medications reviewed and adjusted accordingly: Yes Anticipated Discharge Disposition: Home, Self Care Anticipated Discharge Timeframe: per ONC
[2020-08-25] MEDS: VENLAFAXINE HCL 75 MG CAP.SR.24H PO SCH (21:05)
[2020-08-25] MEDS: AMLODIPINE BESYLATE 5 MG TABLET PO SCH (21:07)
[2020-08-26] MEDS: TEMAZEPAM 15 MG CAPSULE PO PRN (00:36)
[2020-08-26] MEDS: HYDROMORPHONE HCL INJ/PF 2 MG/ML AMPULE IV PRN ×4 (00:36→19:58)
[2020-08-26] MEDS: GABAPENTIN 100 MG CAPSULE PO SCH ×3 (05:24→21:43)
[2020-08-26 05:49] LABS: MEAN CORPUSCULAR HEMOGLOBIN 28.8 pg (27.0-33.4); MEAN CORPUSCULAR HGB CONC 33.4 g/dL (32.0-36.0); MEAN CORPUSCULAR VOLUME 86 fl (80-97); PLATELET COUNT 491 10^3/uL (150-450); RED BLOOD COUNT 4.17 10^6/uL (4.35-5.55); RED CELL DISTRIBUTION WIDTH 13.6 % (11.5-14.0); WHITE BLOOD COUNT 10.5 10^3/uL (4.0-10.5)
[2020-08-26 06:13] LABS: ANION GAP 8 (5-19); BLOOD UREA NITROGEN 29 mg/dL (7-20); CALCIUM 7.5 mg/dL (8.4-10.2); CARBON DIOXIDE 27 mmol/L (22-30); CHLORIDE 104 mmol/L (98-107); GLUCOSE 127 mg/dL (75-110); POTASSIUM 4.7 mmol/L (3.6-5.0)
[2020-08-26] MEDS: NORMAL SALINE 1000 ML 1,000 ML IV PRN ×2 (06:23→19:07)
[2020-08-26] MEDS: ONDANSETRON HCL INJ/PF 4 MG/2 ML SDV IV PRN ×2 (06:24→11:34)
--- NOTE | 2020-08-26 06:52 | PDOC PROGRESS REPORT ---
Subjective Date:: 08/26/20 Subjective:: Patient states that he has been nauseated this morning, but medications are help ing. Pain is about the same. Biopsy yesterday went well except difficult for him to lay on his stomach. No other concerns today. Reason For Visit: INTRACTABLE PAIN,METASTATIC PROSTATE CANCER Physical Exam Vital Signs: Temp Pulse Resp BP Pulse Ox 98.3 F 112 H 20 153/84 H 92 08/26/20 00:22 08/26/20 00:22 08/26/20 00:22 08/26/20 00:22 08/26/20 00:22 Intake & Output 08/24/20 08/25/20 08/26/20 06:59 06:59 06:59 Intake Total 4115 3273 1645 Output Total 725 1100 475 Balance 3390 2173 1170 Weight 79.2 kg 80.2 kg 87.5 kg General appearance: PRESENT: no acute distress Head exam: PRESENT: normocephalic Respiratory exam: PRESENT: unlabored Neurological exam: PRESENT: awake Psychiatric exam: PRESENT: appropriate affect Focused psych exam: PRESENT: restlessness Skin exam: PRESENT: normal color Results Laboratory Results: 08/26/20 05:03 08/26/20 05:03 08/25/20 08/25/20 08/26/20 06:22 06:22 05:03 WBC 8.3 10.5 RBC 3.76 L 4.17 L Hgb 10.8 L 12.0 L Hct 32.1 L 36.0 L MCV 85 86 MCH 28.7 28.8 MCHC 33.7 33.4 RDW 13.7 13.6 Plt Count 440 491 H Sodium 135.0 L Potassium 4.3 Chloride 105 Carbon Dioxide 25 Anion Gap 5 BUN 27 H Creatinine 0.94 Est GFR ( Amer) > 60 Glucose 108 Calcium 7.1 L 08/26/20 05:03 WBC RBC Hgb Hct MCV MCH MCHC RDW Plt Count Sodium 139.1 Potassium 4.7 Chloride 104 Carbon Dioxide 27 Anion Gap 8 BUN 29 H Creatinine 1.05 Est GFR ( Amer) > 60 Glucose 127 H Calcium 7.5 L Impressions: Abdomen/Pelvis CT 08/22/20 07:21 IMPRESSION: Interval development of innumerable pulmonary nodules, with large right and smaller left pleural effusions. Highly suspicious for diffuse metastatic disease. Marked increase in the left para aortic mass and adenopathy extending from the level of the left kidney to the pelvis. Extension into the left psoas muscle. Indwelling left ureteral stent with mild hydronephrosis. Lumbar Spine MRI 08/23/20 00:00 IMPRESSION: 1. New low T1 signal metastatic lesions within the L2, L3 and L4 vertebral bodies. 2. Infiltrative left-sided retroperitoneal paraspinal mass/adenopathy from the level of L2-L3 to L4-L5 that involves the psoas musculature and results in severe left-sided hydronephrosis. Assessment & Plan - Diagnosis (1) Intractable pain Is this a current diagnosis for this admission?: Yes Plan: Continue current pain regimen. I have encouraged him to ask for different types of pain medications. (2) Prostate cancer Is this a current diagnosis for this admission?: Yes (3) Mass of psoas muscle Is this a current diagnosis for this admission?: Yes Plan: Await pathology results, hopefully later today, then plan to start radiation. - Time Time Spent with patient: 15-24 minutes
[2020-08-26] MEDS: CARISOPRODOL 350 MG TABLET PO SCH ×3 (07:28→21:43)
[2020-08-26] MEDS: DEXAMETHASONE 4 MG TABLET PO SCH ×2 (10:11→21:43)
[2020-08-26] MEDS: FAMOTIDINE 20 MG TABLET PO SCH ×2 (10:11→21:43)
[2020-08-26] MEDS: DOCUSATE SODIUM 100 MG CAPSULE PO SCH ×2 (10:11→18:33)
[2020-08-26] MEDS: LIDOCAINE 5% (700 MG) TRANSDERMAL ADH..PATCH TP SCH (10:12)
[2020-08-26] MEDS: ALPRAZOLAM 0.5 MG TABLET PO SCH ×5 (10:26→21:43)
--- NOTE | 2020-08-26 14:14 | RADIOLOGY REPORT (SQ) ---
EXAM DESCRIPTION: CT NEEDLE PLACEMENT COMPLETE DATE/TIME: 08/25/2020 9:52 am REASON FOR STUDY: PSOAS MASS FINDINGS: Please see combined report for performance of procedure and radiologic supervision and int erpretation. IMPRESSION: Please see combined report for performance of procedure and radiologic supervision and i nterpretation. Reading location - IP/workstation name: [email or web address]
[2020-08-26] MEDS ORDERED: BISACODYL 10 MG SUPP.RECT PR ONE (15:00)
--- NOTE | 2020-08-26 18:57 | PDOC PROGRESS REPORT ---
Subjective Date:: 08/26/20 Subjective:: Patient was seen on morning rounds. He is found sitting up to the edge of the bed on supplemental oxygen via NC at 2lpm. He reports continued lower back pain radiating to his proximal left posterior thigh; however, improved today. Does have continued, infrequent, n/v. Complains of fatigue and confusion; has declined scheduled xanax and prn dilaudid as he feels he may be "over medicated." Otherwise, he has no questions or concerns at this time. He denies fever, chills, chest pain, dyspnea, abdominal pain. No concerns per nursing. Reason For Visit: INTRACTABLE PAIN,METASTATIC PROSTATE CANCER Physical Exam Vital Signs: Temp Pulse Resp BP Pulse Ox 97.4 F 97 19 162/82 H 95 08/26/20 07:54 08/26/20 11:04 08/26/20 11:04 08/26/20 11:04 08/26/20 11:04 Intake & Output 08/25/20 08/26/20 08/27/20 06:59 06:59 06:59 Intake Total 3273 1645 Output Total 1100 475 400 Balance 2173 1170 -400 Weight 80.2 kg 87.5 kg 87.5 kg General appearance: PRESENT: no acute distress, well-developed, well-nourished Head exam: PRESENT: atraumatic, normocephalic Eye exam: PRESENT: conjunctiva pink, EOMI, PERRLA. ABSENT: scleral icterus Mouth exam: PRESENT: moist, tongue midline Respiratory exam: PRESENT: clear to auscultation joana, symmetrical, unlabored, other - supplmental oxygen via NC. ABSENT: rales, rhonchi, wheezes Cardiovascular exam: PRESENT: RRR. ABSENT: diastolic murmur, rubs, systolic murmur Pulses: PRESENT: normal dorsalis pedis pul Vascular exam: PRESENT: normal capillary refill Extremities exam: PRESENT: tenderness - LLE. ABSENT: calf tenderness, clubbing, full ROM - LLE due to pain, pedal edema Neurological exam: PRESENT: alert, awake, oriented to person, oriented to place, oriented to time, oriented to situation, CN II-XII grossly intact, other - fatigued/drowsy. ABSENT: motor sensory deficit Psychiatric exam: PRESENT: appropriate affect, normal mood. ABSENT: homicidal ideation, suicidal ideation Skin exam: PRESENT: dry, intact, warm. ABSENT: cyanosis, rash Results Laboratory Results: 08/26/20 05:03 08/26/20 05:03 08/26/20 08/26/20 05:03 05:03 WBC 10.5 RBC 4.17 L Hgb 12.0 L Hct 36.0 L MCV 86 MCH 28.8 MCHC 33.4 RDW 13.6 Plt Count 491 H Sodium 139.1 Potassium 4.7 Chloride 104 Carbon Dioxide 27 Anion Gap 8 BUN 29 H Creatinine 1.05 Est GFR ( Amer) > 60 Glucose 127 H Calcium 7.5 L Impressions: Abdomen/Pelvis CT 08/22/20 07:21 IMPRESSION: Interval development of innumerable pulmonary nodules, with large right and smaller left pleural effusions. Highly suspicious for diffuse metastatic disease. Marked increase in the left para aortic mass and adenopathy extending from the level of the left kidney to the pelvis. Extension into the left psoas muscle. Indwelling left ureteral stent with mild hydronephrosis. Lumbar Spine MRI 08/23/20 00:00 IMPRESSION: 1. New low T1 signal metastatic lesions within the L2, L3 and L4 vertebral bodies. 2. Infiltrative left-sided retroperitoneal paraspinal mass/adenopathy from the level of L2-L3 to L4-L5 that involves the psoas musculature and results in severe left-sided hydronephrosis. Guidance Needle Placement CT 08/25/20 00:00 IMPRESSION: Please see combined report for performance of procedure and radiologic supervision and interpretation. Assessment and Plan - Diagnosis (1) Intractable pain Is this a current diagnosis for this admission?: Yes Plan: Much improved. Decreased Dilaudid frequency today. Complaining of severe pain to left sacrum, groins, anterior proximal left lower extremity pain. 08/22/2020. CT abdomen pelvis positive for extensive metastasis. 08/23/2020. MRI lumbar spine new low T1 signal metastatic lesions within the L2, L3 and L4 vertebral bodies. 2 infiltrative left-sided retroperitoneal paraspinal mass/adenopathy from the level of L2-L3 to L4-L5 does not involve the psoas musculature. Severe left-sided hydronephrosis Continue fentanyl patch; dose per Dr. Mercer. Continue with as needed Dilaudid; decreased utilization today. Dexamethasone for nerve compression. Plan for radiation therapy; being arranged by Dr. Mercer. Oncology on board. Recommendations noted. Non-opiate regiment escalated; lidoderm patches, gabapentin, tylenol, and toradol Nonpharmocological interventions. (2) Prostate cancer Is this a current diagnosis for this admission?: Yes Plan: Diagnosed in 2018. Status post Lupron injection and radiation. Psoas muscle biopsy completed; results pending. Primary plan per Oncology. (3) Hypertension Is this a current diagnosis for this admission?: Yes Plan: Improved today. Euvolemic. Monitor vitals. Provide appropriate pain control. Resume home dose lisinopril/hctz Continue amlodipine qHS. As needed IV labetalol. Adjust meds as needed. (4) Mass of psoas muscle Is this a current diagnosis for this admission?: Yes Plan: Biopsy completed; results pending. (5) Metastatic cancer Qualifiers: Area of secondary neoplastic involvement: other site Qualified Code(s): C79.89 - Secondary malignant neoplasm of other specified sites Is this a current diagnosis for this admission?: Yes Plan: Due to underlying prostate cancer. Plan as per above. (6) Acute kidney injury superimposed on CKD Is this a current diagnosis for this admission?: Yes Plan: Resolved. Prerenal due to low p.o. intake. Cautious volume decision guided by volume status. Monitor volume status and electrolytes, replace electrolytes as needed. Avoid nephrotoxic meds. (7) Hydronephrosis Qualifiers: Hydronephrosis type: unspecified Qualified Code(s): N13.30 - Unspecified hydronephrosis Is this a current diagnosis for this admission?: Yes Plan: History of hydronephrosis status post left ureteral stent placement. MRI lumbar spine shows severe left-sided hydronephrosis Monitor renal very function closely. Unfortunately no urology consult available at [facility]. Consults urology and transfer if indicated. - Time Time Spent with patient: 15-24 minutes Medications reviewed and adjusted accordingly: Yes Anticipated Discharge Disposition: Home, Self Care Anticipated Discharge Timeframe: TBD
[2020-08-26] MEDS: PROMETHAZINE HCL INJ 25 MG/1 ML VIAL IV PRN (19:58)
[2020-08-26] MEDS: AMLODIPINE BESYLATE 5 MG TABLET PO SCH (21:43)
[2020-08-26] MEDS: PHARMACY COMMUNICATION ORDER MC SCH (21:44)
[2020-08-26] MEDS: VENLAFAXINE HCL 75 MG CAP.SR.24H PO SCH (21:44)
[2020-08-26] MEDS: LABETALOL HCL INJ 20 MG/4 ML DISP.SYRIN IV PRN (23:49)
[2020-08-27] MEDS: HYDROMORPHONE HCL INJ/PF 2 MG/ML AMPULE IV PRN ×4 (02:42→21:17)
[2020-08-27] MEDS: GABAPENTIN 100 MG CAPSULE PO SCH ×3 (06:01→21:19)
[2020-08-27] MEDS: NORMAL SALINE 1000 ML 1,000 ML IV PRN (06:02)
--- NOTE | 2020-08-27 08:26 | PDOC PROGRESS REPORT ---
Subjective Date:: 08/27/20 Subjective:: Patient is less alert and talkative today. Nurses report he had some confusion last night. He tells me that his pain is fairly well managed. No nausea or constipation. He is eating well. He has not tried to walk in hallway. Reason For Visit: INTRACTABLE PAIN,METASTATIC PROSTATE CANCER Physical Exam Vital Signs: Temp Pulse Resp BP Pulse Ox 97.3 F 87 16 170/89 H 97 08/26/20 23:37 08/26/20 23:37 08/26/20 23:37 08/26/20 23:37 08/26/20 23:37 Intake & Output 08/26/20 08/27/20 08/28/20 06:59 06:59 06:59 Intake Total 1645 2000 Output Total 475 900 Balance 1170 1100 Weight 87.5 kg 87.3 kg General appearance: PRESENT: no acute distress Head exam: PRESENT: normocephalic Eye exam: PRESENT: EOMI Respiratory exam: PRESENT: prolonged expiratory phas Extremities exam: ABSENT: pedal edema Neurological exam: PRESENT: awake Psychiatric exam: PRESENT: flat affect Skin exam: PRESENT: erythema Results Laboratory Results: 08/26/20 05:03 08/26/20 05:03 Impressions: Abdomen/Pelvis CT 08/22/20 07:21 IMPRESSION: Interval development of innumerable pulmonary nodules, with large right and smaller left pleural effusions. Highly suspicious for diffuse metastatic disease. Marked increase in the left para aortic mass and adenopathy extending from the level of the left kidney to the pelvis. Extension into the left psoas muscle. Indwelling left ureteral stent with mild hydronephrosis. Lumbar Spine MRI 08/23/20 00:00 IMPRESSION: 1. New low T1 signal metastatic lesions within the L2, L3 and L4 vertebral bodies. 2. Infiltrative left-sided retroperitoneal paraspinal mass/adenopathy from the level of L2-L3 to L4-L5 that involves the psoas musculature and results in severe left-sided hydronephrosis. Guidance Needle Placement CT 08/25/20 00:00 IMPRESSION: Please see combined report for performance of procedure and ra diologic supervision and interpretation. Assessment & Plan - Diagnosis (1) Intractable pain Is this a current diagnosis for this admission?: Yes Plan: He will start radiation treatments for the pain today. I believe he is a bit over-medicated this morning. He is receiving RTC Xanax and soma and also had a dose of restoril last night. He continues IV dilaudid PRN. His duragesic is at 50 mcg. I will wean the xanax and try to get him off of this. I will continue the soma, but goal is to change this to PRN over the next few days. (2) Prostate cancer Is this a current diagnosis for this admission?: Yes Plan: This remains well controlled with current medications. (3) Mass of psoas muscle Is this a current diagnosis for this admission?: Yes Plan: Biopsy prelim report shows carcinoma, but does NOT appear to be prostate cancer. Further testing to follow. To start radiation therapy today. - Time Time Spent with patient: 15-24 minutes - Plan Summary Plan Summary: Patient was discussed with Hospitalist and Rad Onc.
[2020-08-27] MEDS ORDERED: (PENDING PHARMACY ID) (Lisinopril/Hydrochlorothiazide [Lisinopril-Hctz 20-25 Mg Tab] 1 EAC PO SCH (10:00)
[2020-08-27] MEDS: ALPRAZOLAM 0.5 MG TABLET PO SCH ×2 (10:44→23:26)
[2020-08-27] MEDS: DOCUSATE SODIUM 100 MG CAPSULE PO SCH ×2 (10:44→17:01)
[2020-08-27] MEDS: CARISOPRODOL 350 MG TABLET PO SCH ×3 (10:44→21:18)
[2020-08-27] MEDS: FAMOTIDINE 20 MG TABLET PO SCH ×2 (10:44→21:19)
[2020-08-27] MEDS: DEXAMETHASONE 4 MG TABLET PO SCH ×2 (10:45→21:19)
[2020-08-27] MEDS: LISINOPRIL 10 MG TABLET PO SCH (10:45)
[2020-08-27] MEDS: HYDROCHLOROTHIAZIDE 25 MG TABLET PO SCH (10:45)
[2020-08-27] MEDS: FENTANYL 50 MCG/HR PATCH.TD72 TD SCH (10:47)
[2020-08-27] MEDS: LIDOCAINE 5% (700 MG) TRANSDERMAL ADH..PATCH TP SCH (10:47)
[2020-08-27] MEDS ORDERED: ALPRAZOLAM 0.5 MG TABLET PO PRN (10:51)
[2020-08-27] MEDS ORDERED: TEMAZEPAM 15 MG CAPSULE PO PRN (10:52)
[2020-08-27] MEDS ORDERED: HYDROMORPHONE HCL INJ/PF 2 MG/ML AMPULE IV PRN (13:51)
--- NOTE | 2020-08-27 13:54 | PDOC PROGRESS REPORT ---
Subjective Date:: 08/27/20 Subjective:: Patient was seen on morning rounds. He is found laying in bed on room air. He reports continued lower back pain radiating to his proximal left posterior thigh. No nausea today. Complains of fatigue. Otherwise, he has no questions or concerns at this time. He denies fever, chills, chest pain, dyspnea, cough, abdominal pain, n/v/d No concerns per nursing. Reason For Visit: INTRACTABLE PAIN,METASTATIC PROSTATE CANCER Physical Exam Vital Signs: Temp Pulse Resp BP Pulse Ox 98.9 F 98 24 H 180/72 H 92 08/27/20 11:57 08/27/20 11:57 08/27/20 11:57 08/27/20 11:57 08/27/20 11:57 Intake & Output 08/26/20 08/27/20 08/28/20 06:59 06:59 06:59 Intake Total 1645 2000 326 Output Total 475 900 Balance 1170 1100 326 Weight 87.5 kg 87.3 kg General appearance: PRESENT: no acute distress, well-developed, well-nourished Head exam: PRESENT: atraumatic, normocephalic Eye exam: PRESENT: conjunctiva pink, EOMI, PERRLA. ABSENT: scleral icterus Mouth exam: PRESENT: moist, tongue midline Respiratory exam: PRESENT: clear to auscultation joana, symmetrical, unlabored, other - room air. ABSENT: rales, rhonchi, wheezes Cardiovascular exam: PRESENT: RRR. ABSENT: diastolic murmur, rubs, systolic murmur Vascular exam: PRESENT: normal capillary refill Extremities exam: PRESENT: tenderness - LLE. ABSENT: calf tenderness, clubbing, pedal edema Musculoskeletal exam: PRESENT: ambulatory Neurological exam: PRESENT: alert, awake, oriented to person, oriented to place, oriented to time, oriented to situation, CN II-XII grossly intact, other - fatigued/drowsy. ABSENT: motor sensory deficit Psychiatric exam: PRESENT: appropriate affect, normal mood. ABSENT: homicidal ideation, suicidal ideation Skin exam: PRESENT: dry, intact, warm. ABSENT: cyanosis, rash Results Laboratory Results: 08/26/20 05:03 08/26/20 05:03 Impressions: Abdomen/Pelvis CT 08/22/20 07:21 IMPRESSION: Interval development of innumerable pulmonary nodules, with large right and smaller left pleural effusions. Highly suspicious for diffuse metastatic disease. Marked increase in the left para aortic mass and adenopathy extending from the level of the left kidney to the pelvis. Extension into the left psoas muscle. Indwelling left ureteral stent with mild hydronephrosis. Lumbar Spine MRI 08/23/20 00:00 IMPRESSION: 1. New low T1 signal metastatic lesions within the L2, L3 and L4 vertebral bodies. 2. Infiltrative left-sided retroperitoneal paraspinal mass/adenopathy from the level of L2-L3 to L4-L5 that involves the psoas musculature and results in severe left-sided hydronephrosis. Guidance Needle Placement CT 08/25/20 00:00 IMPRESSION: Please see combined report for performance of procedure and radiologic supervision and interpretation. Assessment and Plan - Diagnosis (1) Intractable pain Is this a current diagnosis for this admission?: Yes Plan: Much improved. Complaining of severe pain to left sacrum, groins, anterior proximal left lower extremity pain. 08/22/2020. CT abdomen pelvis positive for extensive metastasis. 08/23/2020. MRI lumbar spine new low T1 signal metastatic lesions within the L2, L3 and L4 vertebral bodies. 2 infiltrative left-sided retroperitoneal paraspinal mass/adenopathy from the level of L2-L3 to L4-L5 does not involve the psoas musculature. Severe left-sided hydronephrosis Discussed plan with Dr. Mercer. Continue fentanyl patch. Continue with as needed Dilaudid; decreased to 2 mg q4hp today. Dexamethasone for nerve compression. Plan for radiation therapy; being arranged by Dr. Mercer. Oncology on board. Recommendations noted. Non-opiate regiment escalated; lidoderm patches, gabapentin, tylenol, and toradol Nonpharmocological interventions. (2) Prostate cancer Is this a current diagnosis for this admission?: Yes Plan: Diagnosed in 2018. Status post Lupron injection and radiation. Psoas muscle biopsy completed; results pending. Primary plan per Oncology. (3) Hypertension Is this a current diagnosis for this admission?: Yes Plan: Improved today. Euvolemic. Monitor vitals. Provide appropriate pain control. Resume home dose lisinopril/hctz Increase amlodipine qHS. As needed IV labetalol. Adjust meds as needed. (4) Mass of psoas muscle Is this a current diagnosis for this admission?: Yes Plan: Biopsy completed; results pending. Primary management per Dr. Mercer. (5) Metastatic cancer Qualifiers: Area of secondary neoplastic involvement: other site Qualified Code(s): C79.89 - Secondary malignant neoplasm of other specified sites Is this a current diagnosis for this admission?: Yes Plan: Plan as per above. (6) Acute kidney injury superimposed on CKD Is this a current diagnosis for this admission?: Yes Plan: Resolved. Prerenal due to low p.o. intake. Cautious volume decision guided by volume status. Monitor volume status and electrolytes, replace electrolytes as needed. Avoid nephrotoxic meds. (7) Hydronephrosis Qualifiers: Hydronephrosis type: unspecified Qualified Code(s): N13.30 - Unspecified hydronephrosis Is this a current diagnosis for this admission?: Yes Plan: History of hydronephrosis status post left ureteral stent placement. MRI lumbar spine shows severe left-sided hydronephrosis Monitor renal very function closely. Unfortunately no urology consult available at [facility]. Consults urology and transfer if indicated. (8) Anxiety Is this a current diagnosis for this admission?: Yes Plan: Increased sedation w/ dilaudid and fentanyl use. Will decrease xanax to 0.25 mg q6hp - Time Time Spent with patient: 35 or more minutes Medications reviewed and adjusted accordingly: Yes Anticipated Discharge Disposition: Home, Self Care Anticipated Discharge Timeframe: within 72 hours
[2020-08-27] MEDS: KETOROLAC TROMETHAMINE INJ/PF 30 MG/1 ML SDV IV PRN (16:42)
[2020-08-27] MEDS: LABETALOL HCL INJ 20 MG/4 ML DISP.SYRIN IV PRN (21:17)
[2020-08-27] MEDS: AMLODIPINE BESYLATE 10 MG TABLET PO SCH (21:19)
[2020-08-27] MEDS: VENLAFAXINE HCL 75 MG CAP.SR.24H PO SCH (21:19)
[2020-08-27] MEDS: PHARMACY COMMUNICATION ORDER MC SCH (21:19)
[2020-08-27] MEDS: TEMAZEPAM 7.5 MG CAPSULE PO PRN (21:37)
[2020-08-27] MEDS ORDERED: AMLODIPINE BESYLATE 5 MG TABLET PO SCH (22:00)
[2020-08-28] MEDS: ALPRAZOLAM 0.5 MG TABLET PO SCH ×3 (05:36→22:14)
[2020-08-28] MEDS: HYDROMORPHONE HCL INJ/PF 2 MG/ML AMPULE IV PRN ×3 (05:36→19:37)
[2020-08-28] MEDS: GABAPENTIN 100 MG CAPSULE PO SCH ×3 (05:36→22:14)
[2020-08-28] MEDS ORDERED: HYDROMORPHONE HCL 4 MG PO PRN (08:19)
[2020-08-28] MEDS: DEXAMETHASONE 4 MG TABLET PO SCH ×2 (09:39→22:14)
[2020-08-28] MEDS: CARISOPRODOL 350 MG TABLET PO SCH ×2 (09:39→13:10)
[2020-08-28] MEDS: FAMOTIDINE 20 MG TABLET PO SCH ×2 (09:39→22:14)
[2020-08-28] MEDS: LIDOCAINE 5% (700 MG) TRANSDERMAL ADH..PATCH TP SCH (09:42)
[2020-08-28] MEDS: LISINOPRIL 10 MG TABLET PO SCH (09:42)
[2020-08-28] MEDS: HYDROCHLOROTHIAZIDE 25 MG TABLET PO SCH (09:42)
[2020-08-28] MEDS: DOCUSATE SODIUM 100 MG CAPSULE PO SCH ×2 (09:42→17:08)
--- NOTE | 2020-08-28 14:21 | PDOC PROGRESS REPORT ---
Subjective Date:: 08/28/20 Subjective:: Patient is sitting up in bed and is able to communicate, but he is very groggy a nd not able to fully use his hands. He again appears to be over-medicated. I discussed this with the patient and with the nursing staff. Apparently, he was not able to tolerate the radiation therapy on Sunday, so this dose was not given. He has been sleeping so pain meds have not been given as much. Nurses are concerned that he is much better after his Xanax has worn off a bit. Patient understands that we cannot increase his pain medication without decreasing his Xanax as these medications are now affecting each other. He states that he is having swelling in his legs. He denies any dyspnea. He is able to walk to the bathroom on his own. Reason For Visit: INTRACTABLE PAIN,METASTATIC PROSTATE CANCER Physical Exam Vital Signs: Temp Pulse Resp BP Pulse Ox 98.3 F 123 H 16 136/63 H 96 08/28/20 11:03 08/28/20 11:03 08/28/20 11:03 08/28/20 11:03 08/28/20 11:03 Intake & Output 08/27/20 08/28/20 08/29/20 06:59 06:59 06:59 Intake Total 2000 1446 Output Total 900 Balance 1100 1446 Weight 87.3 kg 87.3 kg General appearance: PRESENT: no acute distress Head exam: PRESENT: normocephalic Respiratory exam: PRESENT: tachypnea Extremities exam: PRESENT: +1 edema Neurological exam: PRESENT: altered, awake Skin exam: PRESENT: cyanosis Results Laboratory Results: 08/26/20 05:03 08/26/20 05:03 Impressions: Abdomen/Pelvis CT 08/22/20 07:21 IMPRESSION: Interval development of innumerable pulmonary nodules, with large right and smaller left pleural effusions. Highly suspicious for diffuse metastatic disease. Marked increase in the left para aortic mass and adenopathy extending from the level of the left kidney to the pelvis. Extension into the left psoas muscle. Indwelling left ureteral stent with mild hydronephrosis. Lumbar Spine MRI 08/23/20 00:00 IMPRESSION: 1. New low T1 signal metastatic lesions within the L2, L3 and L4 vertebral bodies. 2. Infiltrative left-sided retroperitoneal paraspinal mass/adenopathy from the level of L2-L3 to L4-L5 that involves the psoas musculature and results in s evere left-sided hydronephrosis. Guidance Needle Placement CT 08/25/20 00:00 IMPRESSION: Please see combined report for performance of procedure and radiologic supervision and interpretation. Assessment & Plan - Diagnosis (1) Intractable pain Is this a current diagnosis for this admission?: Yes Plan: I will change his xanax to 0.25 mg TID and change some to PRN. This will allow us to increase duragesic if needed for the pain. He will continue dilaudid PRN. He understands that the radiation is the only thing that will improve his pain at this point and he need to be able to tolerate these treatments. He will try to request dilaudid on his way to radiation. (2) Prostate cancer Is this a current diagnosis for this admission?: Yes Plan: Well controlled. Continue his home dose of chemo agent and all others will resume as outpatient. (3) Mass of psoas muscle Is this a current diagnosis for this admission?: Yes Plan: Still awaiting final pathology report but this appears to be a new primary carcinoma. Await radiation and further recommendations after final path available. - Time Time Spent with patient: 15-24 minutes
--- NOTE | 2020-08-28 16:40 | RADIOLOGY REPORT (SQ) ---
EXAM DESCRIPTION: VENOUS UNILATERAL LOWER IMAGES COMPLETED DATE/TIME: 08/28/2020 1:28 pm REASON FOR STUDY: LLE edema COMPARISON: None. TECHNIQUE: Dynamic and static solano scale and color images acquired of the left leg venous system. Se lected spectral images acquired with additional compression and augmentation maneuvers. The contralat eral common femoral vein and saphenofemoral junction were also imaged. Images stored on PACS. LIMITATIONS: None. FINDINGS: COMMON FEMORAL: Normal phasicity, compression and augmentation. No visualized echogenic ma terial on solano scale. No defects on color images. FEMORAL: Normal compression and augmentation. No visualized echogenic material on solano scale. No defe cts on color images. POPLITEAL: Normal compression, augmentation. No visualized echogenic material on solano scale. No defec ts on color images. CALF VESSELS: Visualized calf veins appear patent. The acromial vein is not well visualized. GSV: Normal compression, augmentation. No visualized echogenic material on solano scale. No defects on color images. ANY DEEP VENOUS INSUFFICIENCY: Not evaluated. ANY EVIDENCE OF POPLITEAL CYST: No. OTHER: Subcutaneous edema. CONTRALATERAL COMMON FEMORAL VEIN AND SAPHENOFEMORAL JUNCTION: Normal phasicity, compression and augmentation. No visualized echogenic material on solano scale. No de fects on color images. IMPRESSION: No evidence of deep venous thrombosis in the visualized left lower extremity. TECHNICAL DOCUMENTATION: JOB ID: [id number] 2010 [employer]- All Rights Reserved Reading location - IP/workstation name: [email or web address]
[2020-08-28] MEDS: HYDROMORPHONE HCL 2 MG TABLET PO PRN (16:45)
--- NOTE | 2020-08-28 18:00 | RADIOLOGY REPORT (SQ) ---
EXAM DESCRIPTION: CT CHEST WITHOUT IMAGES COMPLETED DATE/TIME: 08/28/2020 2:40 pm REASON FOR STUDY: dyspnea COMPARISON: 05/30/2019 TECHNIQUE: CT scan performed of the chest without intravenous contrast. Images reviewed with lung, soft tissue and bone windows. Reconstructed coronal and sagittal MPR images reviewed. All images st ored on PACS. All CT scanners at this facility use dose modulation, iterative reconstruction, and/or weight based d osing when appropriate to reduce radiation dose to as low as reasonably achievable (ALARA). [facility]: Dose Right [facility]: CareDose [facility]: Dose Right [facility]: Teradose 4D [facility]: [employer] RADIATION DOSE: CT Rad equipment meets quality standard of care and radiation dose reduction techniq ues were employed. CTDIvol: 14.4 mGy. DLP: 567 mGy-cm. mGy. LIMITATIONS: Motion artifact. FINDINGS: LUNGS AND PLEURA: Large right and moderate left pleural effusions. Extensive compressive atelectasis on the right. Moderate lower lobe compressive atelectasis on the left. There is a innum erable bilateral pulmonary nodules compatible with metastatic disease. There is some heterogeneity w ith apparent relatively hypodense nodularity in the regions of atelectatic lung probably due to addit ional metastatic nodules. No pneumothorax. HILAR AND MEDIASTINAL STRUCTURES: Progression in scattered enlarged mediastinal and hilar lymph nodes compatible with metastatic disease. HEART AND VASCULAR STRUCTURES: Coronary artery calcifications. No pericardial effusion. UPPER ABDOMEN: Scattered hypodense liver lesions also likely due to metastatic disease. There are a few retrocrural lymph nodes which are likely metastatic. THYROID AND OTHER SOFT TISSUES: Visualized thyroid gland is unremarkable. Mildly enlarged left supra clavicular lymph node appear BONES: Sclerotic lesion involving the posterior right 2nd rib is new and consistent with metastatic d isease. HARDWARE: None in the chest. OTHER: No other significant findings. IMPRESSION: 1. Widespread metastatic disease as above. 2. Large right and moderate left pleural effusions. Thoracentesis may be helpful. TECHNICAL DOCUMENTATION: JOB ID: [id number] Quality ID # [id number]: Final reports with documentation of one or more dose reduction techniques (e.g., Au tomated exposure control, adjustment of the mA and/or kV according to patient size, use of iterative reconstruction technique) 2010 [employer]- All Rights Reserved Reading location - IP/workstation name: [email or web address]
[2020-08-28] MEDS ORDERED: FUROSEMIDE INJ/PF 20 MG/2 ML SDV IV ONE (18:11)
--- NOTE | 2020-08-28 18:24 | RADIOLOGY REPORT (SQ) ---
EXAM DESCRIPTION: CT SOFT TISSUE NECK WITH IMAGES COMPLETED DATE/TIME: 08/28/2020 5:33 pm REASON FOR STUDY: dysphagia, pain; metastatic dz COMPARISON: None. TECHNIQUE: Post IV contrasted scanning from skull base through lung apices with review of bone, soft tissue and lung windows. Reconstructed coronal and sagittal MPR images reviewed. All images stored on PACS. All CT scanners at this facility use dose modulation, iterative reconstruction, and/or weight based d osing when appropriate to reduce radiation dose to as low as reasonably achievable (ALARA). [facility]: Dose Right [facility]: CareDose [facility]: Dose Right [facility]: Teradose 4D [facility]: WeFi CONTRAST TYPE AND DOSE: contrast/concentration: Isovue 350.00 mmol/ml; Total Contrast Delivered: 75. 0 ml; Total Saline Delivered: 26.0 ml RENAL FUNCTION: BUN 29; creatinine 1.05 RADIATION DOSE: CT Rad equipment meets quality standard of care and radiation dose reduction techniq ues were employed. CTDIvol: 14.1 mGy. DLP: 424 mGy-cm. . LIMITATIONS: None. FINDINGS: SKULL BASE: Intact. MAJOR SALIVARY GLANDS: No solid or cystic masses. No inflammatory changes. LYMPHADENOPATHY: No adenopathy. MUCOSAL MASSES OR ASYMMETRY: No mucosal masses or asymmetry. LARYNX/CORDS: No abnormal findings. VASCULAR STRUCTURES: The major vessels are patent. LUNG APICES: Bilateral pleural effusions better characterized on comparison CT imaging performed conc december. BONES: Mild multilevel spondylotic changes are present. No suspicious lytic or blastic osseous lesio ns. No evidence of acute osseous injury. THYROID: Normal size. No masses. PARANASAL SINUSES: Clear. OTHER: No other significant finding. IMPRESSION: No acute abnormality. No findings to correlate to the patient's reported dysphagia. TECHNICAL DOCUMENTATION: JOB ID: [id number] Quality ID # [id number]: Final reports with documentation of one or more dose reduction techniques (e.g., Au tomated exposure control, adjustment of the mA and/or kV according to patient size, use of iterative reconstruction technique) 2010 [employer]- All Rights Reserved Reading location - IP/workstation name: [email or web address]
--- NOTE | 2020-08-28 19:35 | PDOC CONSULTATION ---
Consultation Consult Date: 08/28/20 Attending physician:: ARNOLD OROZCO Provider Consulted: GABRIEL BAUTISTA Consult reason:: Pleural effusions bilaterally History of Present Illness Admission Date/PCP: 08/22/20 10:00 NEGIN NORTON History of Present Illness: JENN CARMEN is a 60 year old male 60-year-old white male presents to the emergency department 1 week ago with a progressive shortness of breath, chest pain, lower back pain and was found to have bilateral pulmonary nodules, effusions, extensive lumbar metastases, retroperitoneal mass involving the psoas muscle and left hydroureter with stent placement. Now with progressive shortness of breath and CT scan findings consistent with a worsening right pleural effusion, near atelectasis of the right middle and lower lobes. Surgery was consulted. Past Medical History Cardiac Medical History: Reports: Hyperlipidema, Hypertension Malignancy Medical History: Reports: Other - prostate cancer Psychiatric Medical History: Reports: Depression, General Anxiety Disorder, Post Traumatic Stress Disorder Past Surgical History Past Surgical History: History of radiation to the pelvis Past Surgical History: Reports: Other - Left ureteral stent TURP Social History Information Source: Patient Smoking Status: Never Smoker Electronic Cigarette use?: No Frequency of Alcohol Use: None Hx Recreational Drug Use: No Drugs: None Hx Prescription Drug Abuse: No Family History Family History: None, Reviewed & Not Pertinent Parental Family History Reviewed: No Children Family History Reviewed: No Sibling(s) Family History Reviewed.: No Medication/Allergy Home Medications: Alprazolam [Xanax] 0.5 mg PO QID 08/22/20 Carisoprodol [Soma 350 Mg Tablet] 350 mg PO BID 08/22/20 Carisoprodol [Soma 350 Mg Tablet] 350 mg PO QHS 08/22/20 Ergocalciferol (Vitamin D2) [Drisdol 50,000 Unit (1.25MG) Capsule] 50,000 unit PO TELLO@1000 08/22/20 Hydromorphone HCl [Dilaudid] 4 mg PO Q6HP PRN 08/22/20 Lisinopril/Hydrochlorothiazide [Lisinopril-Hctz 20-25 mg Tab] 1 each PO DAILY 08/22/20 Lovastatin [Altoprev] 40 mg PO QHS 08/22/20 Venlafaxine HCl ER [Effexor Xr 75 mg Cap.sr] 75 mg PO DAILY 08/22/20 Allergies/Adverse Reactions: No Known Allergies Allergy (Verified 05/21/20 10:51) Review of Systems Constitutional: PRESENT: as per HPI Eyes: ABSENT: visual disturbances Ears: ABSENT: hearing changes Respiratory: PRESENT: other - Progressive shortness of breath Gastrointestinal: PRESENT: bloating Psychiatric: ABSENT: anxiety, depression, homidical ideation, suicidal ideation Physical Exam Vital Signs: Temp Pulse Resp BP Pulse Ox 97.9 F 88 18 131/76 H 96 08/28/20 15:30 08/28/20 15:30 08/28/20 15:30 08/28/20 15:30 08/28/20 15:30 Intake & Output 08/27/20 08/28/20 08/29/20 06:59 06:59 06:59 Intake Total 2000 1446 240 Output Total 900 500 Balance 1100 1446 -260 Weight 87.3 kg 87.3 kg General appearance: PRESENT: other - Obvious respiratory distress, Head exam: PRESENT: normocephalic Eye exam: PRESENT: EOMI Neck exam: PRESENT: full ROM Respiratory exam: PRESENT: rhonchi, other - Obvious respiratory distress, accessory muscles of respiration utilized, decreased breath sounds bilaterally Cardiovascular exam: PRESENT: RRR Pulses: PRESENT: normal carotid pulses, normal radial pulses, normal femoral pulses GI/Abdominal exam: PRESENT: other - Edematous Rectal exam: PRESENT: deferred Extremities exam: PRESENT: +2 edema Musculoskeletal exam: PRESENT: full ROM Neurological exam: PRESENT: oriented to person, oriented to place, oriented to time, oriented to situation Psychiatric exam: PRESENT: appropriate affect Results Laboratory Results: 08/26/20 05:03 08/26/20 05:03 Impressions: Abdomen/Pelvis CT 08/22/20 07:21 IMPRESSION: Interval development of innumerable pulmonary nodules, with large right and smaller left pleural effusions. Highly suspicious for diffuse metastatic disease. Marked increase in the left para aortic mass and adenopathy extending from the level of the left kidney to the pelvis. Extension into the left psoas muscle. Indwelling left ureteral stent with mild hydronephrosis. Lumbar Spine MRI 08/23/20 00:00 IMPRESSION: 1. New low T1 signal metastatic lesions within the L2, L3 and L4 vertebral bodies. 2. Infiltrative left-sided retroperitoneal paraspinal mass/adenopathy from the level of L2-L3 to L4-L5 that involves the psoas musculature and results in severe left-sided hydronephrosis. Guidance Needle Placement CT 08/25/20 00:00 IMPRESSION: Please see combined report for performance of procedure and radiologic supervision and interpretation. Chest CT 08/28/20 00:00 IMPRESSION: 1. Widespread metastatic disease as above. 2. Large right and moderate left pleural effusions. Thoracentesis may be helpful. Soft Tissue Neck CT 08/28/20 00:00 IMPRESSION: No acute abnormality. No findings to correlate to the patient's reported dysphagia. Venous Doppler Study 08/28/20 00:00 IMPRESSION: No evidence of deep venous thrombosis in the visualized left lower extremity. Assessment & Plan - Plan Summary Plan Summary: Assessment because the above window wound open: Respiratory failure due to progressive bilateral pleural effusions right greater than left, with atelectasis primarily due to metastatic pleural effusion with bilateral pulmonary nodules in 60-year-old male with known prostate cancer, with lumbar vertebral mets with retroperitoneal mass. Patient needs acute intervention Plan: 1. Obtain rapid Covid test 2. We will place right thoracostomy tube tonight and drain the right pleural effusion. Patient may require left thoracentesis and/or thoracostomy tube drainage. 3. Patient expresses understanding and agrees to proceed.
--- NOTE | 2020-08-28 19:39 | PDOC PROGRESS REPORT ---
Subjective Date:: 08/28/20 Subjective:: Patient was seen on morning rounds. He is found laying in bed on room air. He reports continued lower back pain radiating to his proximal left posterior thigh. No nausea today. Complains of fatigue. Otherwise, he has no questions or concerns at this time. He denies fever, chills, chest pain, dyspnea, cough, abdominal pain, n/v/d No concerns per nursing. Reason For Visit: INTRACTABLE PAIN,METASTATIC PROSTATE CANCER Physical Exam Vital Signs: Temp Pulse Resp BP Pulse Ox 97.9 F 88 18 131/76 H 96 08/28/20 15:30 08/28/20 15:30 08/28/20 15:30 08/28/20 15:30 08/28/20 15:30 Intake & Output 08/27/20 08/28/20 08/29/20 06:59 06:59 06:59 Intake Total 1999 1446 240 Output Total 900 500 Balance 1100 1446 -260 Weight 87.3 kg 87.3 kg General appearance: PRESENT: no acute distress, cooperative, well-developed, well-nourished Head exam: PRESENT: atraumatic, normocephalic Eye exam: PRESENT: conjunctiva pink, EOMI, PERRLA. ABSENT: scleral icterus Mouth exam: PRESENT: moist, tongue midline Throat exam: PRESENT: other - laryngitis Neck exam: PRESENT: lymphadenopathy. ABSENT: carotid bruit, JVD, thyromegaly Respiratory exam: PRESENT: clear to auscultation joana, decreased breath sounds - R>L, symmetrical, unlabored, other - supplmental oxygen via NC. ABSENT: rales, rhonchi, wheezes Cardiovascular exam: PRESENT: RRR, tachycardia - intermittent. ABSENT: diastolic murmur, rubs, systolic murmur Pulses: PRESENT: normal dorsalis pedis pul Vascular exam: PRESENT: normal capillary refill GI/Abdominal exam: PRESENT: normal bowel sounds, soft. ABSENT: distended, guard ing, mass, organolmegaly, rebound, tenderness Rectal exam: PRESENT: deferred Extremities exam: PRESENT: full ROM, +2 edema - soft, nonpitting, LLE. ABSENT: calf tenderness, clubbing, pedal edema Musculoskeletal exam: PRESENT: ambulatory Neurological exam: PRESENT: alert, awake, oriented to person, oriented to place, oriented to time, oriented to situation, CN II-XII grossly intact, other - fatigued. ABSENT: motor sensory deficit Psychiatric exam: PRESENT: appropriate affect, normal mood. ABSENT: homicidal ideation, suicidal ideation Skin exam: PRESENT: dry, intact, warm. ABSENT: cyanosis, rash Results Laboratory Results: 08/26/20 05:03 08/26/20 05:03 Impressions: Abdomen/Pelvis CT 08/22/20 07:21 IMPRESSION: Interval development of innumerable pulmonary nodules, with large right and smaller left pleural effusions. Highly suspicious for diffuse metastatic disease. Marked increase in the left para aortic mass and adenopathy extending from the level of the left kidney to the pelvis. Extension into the left psoas muscle. Indwelling left ureteral stent with mild hydronephrosis. Lumbar Spine MRI 08/23/20 00:00 IMPRESSION: 1. New low T1 signal metastatic lesions within the L2, L3 and L4 vertebral bodies. 2. Infiltrative left-sided retroperitoneal paraspinal mass/adenopathy from the level of L2-L3 to L4-L5 that involves the psoas musculature and results in severe left-sided hydronephrosis. Guidance Needle Placement CT 08/25/20 00:00 IMPRESSION: Please see combined report for performance of procedure and radiologic supervision and interpretation. Chest CT 08/28/20 00:00 IMPRESSION: 1. Widespread metastatic disease as above. 2. Large right and moderate left pleural effusions. Thoracentesis may be helpful. Soft Tissue Neck CT 08/28/20 00:00 IMPRESSION: No acute abnormality. No findings to correlate to the patient's reported dysphagia. Venous Doppler Study 08/28/20 00:00 IMPRESSION: No evidence of deep venous thrombosis in the visualized left lower extremity. Assessment and Plan - Diagnosis (1) Intractable pain Is this a current diagnosis for this admission?: Yes Plan: Much improved. Complaining of severe pain to left sacrum, groins, anterior proximal left lower extremity pain. 08/22/2020. CT abdomen pelvis positive for extensive metastasis. 08/23/2020. MRI lumbar spine new low T1 signal metastatic lesions within the L2, L3 and L4 vertebral bodies. 2 infiltrative left-sided retroperitoneal paraspinal mass/adenopathy from the level of L2-L3 to L4-L5 does not involve the psoas musculature. Severe left-sided hydronephrosis Discussed plan with Dr. Mercer. Continue fentanyl patch. Resume home dose oral dilaudid Continue with as needed Dilaudid; decreased to 1 mg q6hp breakthrough pain Dexamethasone for nerve compression. Plan for radiation therapy; being arranged by Dr. Mercer. Oncology on board. Recommendations noted. Non-opiate regiment escalated; lidoderm patches, gabapentin, tylenol, and toradol Nonpharmocological interventions. (2) Prostate cancer Is this a current diagnosis for this admission?: Yes Plan: Diagnosed in 2018. Status post Lupron injection and radiation. Psoas muscle biopsy completed; results pending. Primary plan per Oncology. (3) Hypertension Is this a current diagnosis for this admission?: Yes Plan: Improved today. Euvolemic. Monitor vitals. Provide appropriate pain control. Continue home dose lisinopril/hctz Continue amlodipine 10 mg qHS. As needed IV labetalol. Adjust meds as needed. (4) Mass of psoas muscle Is this a current diagnosis for this admission?: Yes Plan: Biopsy completed; results pending. Primary management per Dr. Mercer. (5) Metastatic cancer Qualifiers: Area of secondary neoplastic involvement: other site Qualified Code(s): C79.89 - Secondary malignant neoplasm of other specified sites Is this a current diagnosis for this admission?: Yes Plan: Plan as per above. (6) Acute kidney injury superimposed on CKD Is this a current diagnosis for this admission?: Yes Plan: Resolved. Prerenal due to low p.o. intake. Cautious volume decision guided by volume status. Monitor volume status and electrolytes, replace electrolytes as needed. Avoid nephrotoxic meds. (7) Hydronephrosis Qualifiers: Hydronephrosis type: unspecified Qualified Code(s): N13.30 - Unspecified hydronephrosis Is this a current diagnosis for this admission?: Yes Plan: History of hydronephrosis status post left ureteral stent placement. MRI lumbar spine shows severe left-sided hydronephrosis Monitor renal very function closely. Unfortunately no urology consult available at [facility]. Consults urology and transfer if indicated. (8) Anxiety Is this a current diagnosis for this admission?: Yes Plan: Increased sedation w/ dilaudid and fentanyl use. Decrease xanax to 0.25 mg q8hp (9) Leg edema, left Is this a current diagnosis for this admission?: Yes Plan: Possibly lymphatic return compression r/t malignancy. Vnous Doppler negative for SVT/DVT Lasix 20 mg IV x1 dose; monitor renal function and for effect. BETY hoschina, keep elevated (10) Acute laryngitis Is this a current diagnosis for this admission?: Yes Plan: Denies pain. Does report difficulty swallowing. Noted to have lost his voice this morning. Slight lymphardenopathy on exam. FROM w/o pain CT Soft tissue neck did not show concerning mass/obstructions. COVID pending; though low suspicion Continue dexamethasone Encourage po fluids (11) Pleural effusion Is this a current diagnosis for this admission?: Yes Plan: Bilateral pleural effusion; Large on R, Moderate on L Discussed w/ Dr. Mercer. Recommends drainage and requests cytology. Continue supplemental oxygen Lasix 20 mg IV x1 dose; monitor renal function and for effect. Surgery consulted; discussed with Dr. Garza. - Time Time Spent with patient: 35 or more minutes Medications reviewed and adjusted accordingly: Yes Anticipated Discharge Disposition: Home, Self Care Anticipated Discharge Timeframe: TBD
[2020-08-28] MEDS ORDERED: LIDOCAINE 1% INJ-PF (10 MG/ML) 30 ML SDV ONE (20:10)
[2020-08-28] MEDS ORDERED: LIDOCAINE 1% INJ-PF (10 MG/ML) 30 ML SDV INJ ONE (20:45)
[2020-08-28] MEDS ORDERED: LIDOCAINE 1% INJ (10 MG/ML) 10 ML MDV INJ ONE (20:45)
--- NOTE | 2020-08-28 21:36 | Operative Report ---
Operative Report DATE OF SURGERY: 08/28/20 PREOPERATIVE DIAGNOSIS: 1. Metastatic carcinoma. 2. Malignant right pleural effusion POSTOPERATIVE DIAGNOSIS: Same OPERATION: Placement of a 28 Canadian right thoracostomy tube and drainage of 3 L of pleural fluid SURGEON: GABRIEL BAUTISTA ANESTHESIA: Local TISSUE REMOVED OR ALTERED: 3 L of pleural fluid COMPLICATIONS: None ESTIMATED BLOOD LOSS: Scant INTRAOPERATIVE FINDINGS: See below PROCEDURE: The patient was operated on in room 416. He was placed in the semirecumbent position left side down right side up. Right arm was draped over his chest, and the right mid axillary area prepped and draped with chlorhexidine Surgical plan and surgical timeout were conducted. The skin and ICS 7-8 was anesthetized 1% plain lidocaine. An opening was made in the skin approximately 2 cm along with a 15 blade, and Amy clamp used to espinosa the right chest. There was an immediate gush of straw-colored pleural fluid. A right 28 Canadian colostomy tube was inserted without difficulty into the right pleural space such that sentinel hole was approximate 11 cm from the skin edge. The chest tube is attached to a Pleur-evac with immediate evacuation of 2500 cc of straw-colored fluid. Chest tube was clamped, then secured to the skin with 2-0 silk suture x2, Xeroform, 4 x 4's and tape applied. A replacement Pleur-evac was switched into position, an additional 500 cc of fluid drained Patient had some coughing but otherwise tolerated procedure well. Was placed in the supine position, and portable upright chest x-ray pending at time dictation. Plan: 1. Leave Pleur-evac to waterseal; check chest x-ray 2. Incentive spirometry and coughing encouraged 3. Patient may require left thoracentesis as well
[2020-08-28] MEDS: AMLODIPINE BESYLATE 10 MG TABLET PO SCH (22:12)
[2020-08-28] MEDS: VENLAFAXINE HCL 75 MG CAP.SR.24H PO SCH (22:14)
[2020-08-28] MEDS: TEMAZEPAM 7.5 MG CAPSULE PO PRN (22:16)
[2020-08-28] MEDS: PHARMACY COMMUNICATION ORDER MC SCH (22:33)
--- NOTE | 2020-08-28 22:41 | RADIOLOGY REPORT (SQ) ---
EXAM DESCRIPTION: Site: CHEST SINGLE VIEW RP: XR CHEST 1 VIEW CLINICAL HISTORY: 60 years Male; Chest tube placment FINDINGS: AP chest at 2204. Since 1731, a right chest tube has been placed, tip overlying mid right lung. The right pleural effusion is resolved. There is a right pneumothorax, estimated 10-15%. Left pleural effusion has not changed. No left pneumothorax. No mediastinal shift. Numerous pulmonary nodules bilaterally are again noted. IMPRESSION: 1. Resolution of right pleural effusion status post chest tube placement. 2. 10-15% right pneumothorax.
[2020-08-29] MEDS: HYDROMORPHONE HCL 2 MG TABLET PO PRN ×4 (01:13→22:00)
[2020-08-29 01:22] LABS: FLUID SOURCE LUNG; FLUID TYPE PLEURAL
[2020-08-29 01:23] LABS: FLUID APPEARANCE HAZY; FLUID COLOR YELLOW; FLUID VISCOSITY SLIGHTLY VISCOUS
[2020-08-29] MEDS: HYDROMORPHONE HCL INJ/PF 2 MG/ML AMPULE IV PRN ×3 (03:35→18:01)
[2020-08-29 05:18] LABS: HEMATOCRIT 36.1 % (37.9-51.0); HEMOGLOBIN 11.9 g/dL (13.5-17.0); MEAN CORPUSCULAR HEMOGLOBIN 28.2 pg (27.0-33.4); MEAN CORPUSCULAR HGB CONC 32.9 g/dL (32.0-36.0); MEAN CORPUSCULAR VOLUME 86 fl (80-97); PLATELET COUNT 363 10^3/uL (150-450); RED CELL DISTRIBUTION WIDTH 14.1 % (11.5-14.0); WHITE BLOOD COUNT 10.7 10^3/uL (4.0-10.5)
[2020-08-29] MEDS: GABAPENTIN 100 MG CAPSULE PO SCH ×3 (05:27→22:01)
[2020-08-29] MEDS: ALPRAZOLAM 0.5 MG TABLET PO SCH ×2 (05:27→14:03)
[2020-08-29 05:32] LABS: BLOOD UREA NITROGEN 36 mg/dL (7-20); CALCIUM 7.1 mg/dL (8.4-10.2); GLUCOSE 127 mg/dL (75-110); POTASSIUM 4.3 mmol/L (3.6-5.0)
[2020-08-29 05:38] LABS: CARBON DIOXIDE 33 mmol/L (22-30); CHLORIDE 103 mmol/L (98-107)
[2020-08-29 05:42] LABS: ANION GAP 3 (5-19)
[2020-08-29] MEDS: LISINOPRIL 10 MG TABLET PO SCH (10:27)
[2020-08-29] MEDS: FAMOTIDINE 20 MG TABLET PO SCH ×2 (10:27→22:01)
[2020-08-29] MEDS: DOCUSATE SODIUM 100 MG CAPSULE PO SCH ×2 (10:28→17:01)
[2020-08-29] MEDS: DEXAMETHASONE 4 MG TABLET PO SCH ×2 (10:28→22:01)
[2020-08-29] MEDS: LIDOCAINE 5% (700 MG) TRANSDERMAL ADH..PATCH TP SCH (10:29)
[2020-08-29] MEDS: ERGOCALCIFEROL (VITAMIN D2) 50000 UNIT (1.25 MG) CAPSULE PO SCH (10:29)
[2020-08-29] MEDS: HYDROCHLOROTHIAZIDE 25 MG TABLET PO SCH (10:29)
[2020-08-29] MEDS: CARISOPRODOL 350 MG TABLET PO PRN ×3 (10:39→22:12)
--- NOTE | 2020-08-29 14:14 | PDOC PROGRESS REPORT ---
Subjective Date:: 08/29/20 Reason For Visit: INTRACTABLE PAIN,METASTATIC PROSTATE CANCER Patient resting, essentially out of it. Difficult to assess clinically. Chest tube to waterseal with fluctuation and air leak Physical Exam Vital Signs: Temp Pulse Resp BP Pulse Ox 98.2 F 94 22 H 121/70 98 08/29/20 12:00 08/29/20 12:00 08/29/20 12:00 08/29/20 12:00 08/29/20 12:00 Intake & Output 08/28/20 08/29/20 08/30/20 06:59 06:59 06:59 Intake Total 1446 240 442 Output Total 1100 3350 Balance 7306 860 -2906 Weight 87.3 kg 87.1 kg General appearance: PRESENT: no acute distress Respiratory exam: PRESENT: other - Right chest wall without pneumatosis; fluctuation in chest tube with periodic air leak. No significant additional drainage overnight Results Laboratory Results: 08/29/20 05:03 08/29/20 05:03 08/28/20 08/29/20 08/29/20 22:45 05:03 05:03 WBC 10.7 H RBC 4.20 L Hgb 11.9 L Hct 36.1 L MCV 86 MCH 28.2 MCHC 32.9 RDW 14.1 H Plt Count 363 Sodium 138.8 Potassium 4.3 Chloride 103 Carbon Dioxide 33 H Anion Gap 3 L BUN 36 H Creatinine 1.03 Est GFR ( Amer) > 60 Glucose 127 H Calcium 7.1 L Fluid Type PLEURAL Fluid Source LUNG Fluid Color YELLOW Fluid Appearance HAZY Fluid Viscosity SLIGHTLY VISCOUS Fluid WBC 106 Fluid RBC 4195 Impressions: Abdomen/Pelvis CT 08/22/20 07:21 IMPRESSION: Interval development of innumerable pulmonary nodules, with large right and smaller left pleural effusions. Highly suspicious for diffuse metastatic disease. Marked increase in the left para aortic mass and adenopathy extending from the level of the left kidney to the pelvis. Extension into the left psoas muscle. Indwelling left ureteral stent with mild hydronephrosis. Lumbar Spine MRI 08/23/20 00:00 IMPRESSION: 1. New low T1 signal metastatic lesions within the L2, L3 and L4 vertebral bodies. 2. Infiltrative left-sided retroperitoneal paraspinal mass/adenopathy from the level of L2-L3 to L4-L5 that involves the psoas musculature and results in severe left-sided hydronephrosis. Guidance Needle Placement CT 08/25/20 00:00 IMPRESSION: Please see combined report for performance of procedure and radiologic supervision and interpretation. Chest CT 08/28/20 00: IMPRESSION: 1. Widespread metastatic disease as above. 2. Large right and moderate left pleural effusions. Thoracentesis may be helpful. Chest X-Ray 08/28/20 00:00 IMPRESSION: 1. Resolution of right pleural effusion status post chest tube placement. 2. 10-15% right pneumothorax. Soft Tissue Neck CT 08/28/20 00: IMPRESSION: No acute abnormality. No findings to correlate to the patient's reported dysphagia. Venous Doppler Study 08/28/20 00:00 IMPRESSION: No evidence of deep venous thrombosis in the visualized left lower extremity. Assessment & Plan - Diagnosis (1) Pleural effusion Is this a current diagnosis for this admission?: Yes Plan: Impression: Massive right pleural effusion with trapped lung, now reexpanded with thoracostomy tube placement last night, with decreased labored respirations. Chest tube with intermittent air leak. Plan: 1. We will place chest tube to suction 2. Encourage pulmonary toilet, and lung reexpansion. 3. Future management of right pleural space will depend on cytology, and oncologic input; we will continue to follow. (2) Acute kidney injury superimposed on CKD Is this a current diagnosis for this admission?: Yes (3) Metastatic cancer Qualifiers: Area of secondary neoplastic involvement: other site Qualified Code(s): C79.89 - Secondary malignant neoplasm of other specified sites Is this a current diagnosis for this admission?: Yes - Time Anticipated Discharge Disposition: Shelter Facility Anticipated Discharge Timeframe: within 72 hours
[2020-08-29] MEDS: FENTANYL 75 MCG/HR PATCH.TD72 TD SCH (18:50)
--- NOTE | 2020-08-29 19:00 | PDOC PROGRESS REPORT ---
Subjective Date:: 08/29/20 Subjective:: Patient was seen on morning rounds. He is found laying in bed on supplemental oxygen by nasal cannula. He was sleeping but woke easily when I said his name. He reports continued, uncontrolled, and pain. However, he is noted to be quite somnolent and falls back to sleep multiple times during our discussion. He reports that his dyspnea has improved. Only has an occasional cough. He denies fever, chills, chest pain, palpitations, abdominal pain, nausea, vomiting and diarrhea. He has no questions or concerns at this time. No concerns per nursing. Reason For Visit: INTRACTABLE PAIN,METASTATIC PROSTATE CANCER Physical Exam Vital Signs: Temp Pulse Resp BP Pulse Ox 97.4 F 92 19 127/79 H 100 08/29/20 16:58 08/29/20 16:58 08/29/20 16:58 08/29/20 16:58 08/29/20 16:58 Intake & Output 08/28/20 08/29/20 08/30/20 06:59 06:59 06:59 Intake Total 1446 240 442 Output Total 1100 3350 Balance 1446 -860 -2908 Weight 87.3 kg 87.1 kg General appearance: PRESENT: no acute distress, disheveled, well-developed, well-nourished Head exam: PRESENT: atraumatic, normocephalic Eye exam: PRESENT: conjunctiva pink, EOMI, PERRLA. ABSENT: scleral icterus Mouth exam: PRESENT: moist, tongue midline Respiratory exam: PRESENT: decreased breath sounds - Throughout; overall improved from yesterday, rhonchi, symmetrical, other - Supplemental oxygen by nasal cannula. Right-sided chest tube to low wall suction. ABSENT: rales, wh eezes Cardiovascular exam: PRESENT: RRR. ABSENT: diastolic murmur, rubs, systolic murmur Pulses: PRESENT: normal dorsalis pedis pul Vascular exam: PRESENT: normal capillary refill Extremities exam: PRESENT: full ROM, +2 edema - soft, nonpitting, LLE. ABSENT: calf tenderness, clubbing, pedal edema Neurological exam: PRESENT: alert, awake, oriented to person, oriented to place, oriented to time, oriented to situation, CN II-XII grossly intact, other - Somnolent. ABSENT: motor sensory deficit Psychiatric exam: PRESENT: appropriate affect, normal mood. ABSENT: homicidal ideation, suicidal ideation Skin exam: PRESENT: dry, intact, warm. ABSENT: cyanosis, rash Results Laboratory Results: 08/29/20 05:03 08/29/20 05:03 08/28/20 08/29/20 08/29/20 22:45 05:03 05:03 WBC 10.7 H RBC 4.20 L Hgb 11.9 L Hct 36.1 L MCV 86 MCH 28.2 MCHC 32.9 RDW 14.1 H Plt Count 363 Sodium 138.8 Potassium 4.3 Chloride 103 Carbon Dioxide 33 H Anion Gap 3 L BUN 36 H Creatinine 1.03 Est GFR ( Amer) > 60 Glucose 127 H Calcium 7.1 L Fluid Type PLEURAL Fluid Source LUNG Fluid Color YELLOW Fluid Appearance HAZY Fluid Viscosity SLIGHTLY VISCOUS Fluid WBC 106 Fluid RBC 4195 Impressions: Abdomen/Pelvis CT 08/22/20 07:21 IMPRESSION: Interval development of innumerable pulmonary nodules, with large right and smaller left pleural effusions. Highly suspicious for diffuse metastatic disease. Marked increase in the left para aortic mass and adenopathy extending from the level of the left kidney to the pelvis. Extension into the left psoas muscle. Indwelling left ureteral stent with mild hydronephrosis. Lumbar Spine MRI 08/23/20 00:00 IMPRESSION: 1. New low T1 signal metastatic lesions within the L2, L3 and L4 vertebral bodies. 2. Infiltrative left-sided retroperitoneal paraspinal mass/adenopathy from the level of L2-L3 to L4-L5 that involves the psoas musculature and results in severe left-sided hydronephrosis. Guidance Needle Placement CT 08/25/20 00:00 IMPRESSION: Please see combined report for performance of procedure and radiologic supervision and interpretation. Chest CT 08/28/20 00:00 IMPRESSION: 1. Widespread metastatic disease as above. 2. Large right and moderate left pleural effusions. Thoracentesis may be helpful. Chest X-Ray 08/28/20 00:00 IMPRESSION: 1. Resolution of right pleural effusion status post chest tube placement. 2. 10-15% right pneumothorax. Soft Tissue Neck CT 08/28/20 00:00 IMPRESSION: No acute abnormality. No findings to correlate to the patient's reported dysphagia. Venous Doppler Study 08/28/20 00:00 IMPRESSION: No evidence of deep venous thrombosis in the visualized left lower extremity. Assessment and Plan - Diagnosis (1) Intractable pain Is this a current diagnosis for this admission?: Yes Plan: Much improved. Complaining of severe pain to left sacrum, groins, anterior proximal left lower extremity pain. 08/22/2020. CT abdomen pelvis positive for extensive metastasis. 08/23/2020. MRI lumbar spine new low T1 signal metastatic lesions within the L2, L3 and L4 vertebral bodies. 2 infiltrative left-sided retroperitoneal paraspinal mass/adenopathy from the level of L2-L3 to L4-L5 does not involve the psoas musculature. Severe left-sided hydronephrosis Discussed plan with Dr. Mercer. Continue fentanyl patch. Oral Dilaudid increased to 5 mg every 6 hours as needed. Decrease breakthrough Dilaudid to 0.5 mg IV every 6 hours as needed Dexamethasone for nerve compression. Plan for radiation therapy; being arranged by Dr. Mercer. Oncology on board. Recommendations noted. Non-opiate regiment escalated; lidoderm patches, gabapentin, tylenol, and toradol Nonpharmocological interventions. (2) Malignant pleural effusion Is this a current diagnosis for this admission?: Yes Plan: Pleural effusion cultures and cytology are pending. Surgery was consulted. Appreciate their expertise. With a chest tube to low wall suction. 3L immediate output. Encourage pulmonary toilet. (3) Prostate cancer Is this a current diagnosis for this admission?: Yes Plan: Diagnosed in 2018. Status post Lupron injection and radiation. Psoas muscle biopsy completed; results pending. Primary plan per Oncology. (4) Hypertension Is this a current diagnosis for this admission?: Yes Plan: Acceptable blood pressures today. Euvolemic. Monitor vitals. Provide appropriate pain control. Continue home dose lisinopril/hctz Continue amlodipine 10 mg qHS. As needed IV labetalol. Adjust meds as needed. (5) Mass of psoas muscle Is this a current diagnosis for this admission?: Yes Plan: Biopsy completed; results pending. Primary management per Dr. Mercer. (6) Metastatic cancer Qualifiers: Area of secondary neoplastic involvement: other site Qualified Code(s): C79.89 - Secondary malignant neoplasm of other specified sites Is this a current diagnosis for this admission?: Yes Plan: Plan as per above. (7) Acute kidney injury superimposed on CKD Is this a current diagnosis for this admission?: Yes Plan: Resolved. Prerenal due to low p.o. intake. Cautious volume decision guided by volume status. Monitor volume status and electrolytes, replace electrolytes as needed. Avoid nephrotoxic meds. (8) Hydronephrosis Qualifiers: Hydronephrosis type: unspecified Qualified Code(s): N13.30 - Unspecified hydronephrosis Is this a current diagnosis for this admission?: Yes Plan: History of hydronephrosis status post left ureteral stent placement. MRI lumbar spine shows severe left-sided hydronephrosis Monitor renal very function closely. Unfortunately no urology consult available at [facility]. Consults urology and transfer if indicated. (9) Anxiety Is this a current diagnosis for this admission?: Yes Plan: Increased sedation w/ dilaudid and fentanyl use. Decrease xanax to 0.25 mg q8hp (10) Leg edema, left Is this a current diagnosis for this admission?: Yes Plan: Possibly lymphatic return compression r/t malignancy. Vnous Doppler negative for SVT/DVT BETY james, keep elevated (11) Acute laryngitis Is this a current diagnosis for this admission?: Yes Plan: Improved today. Denies pain. Does report difficulty swallowing. Noted to have lost his voice this morning. Slight lymphardenopathy on exam. FROM w/o pain CT Soft tissue neck did not show concerning mass/obstructions. COVID negative. Continue dexamethasone Encourage po fluids (12) Pleural effusion Is this a current diagnosis for this admission?: Yes - Time Time Spent with patient: 35 or more minutes Medications reviewed and adjusted accordingly: Yes Anticipated Discharge Disposition: TBD Anticipated Discharge Timeframe: TBD
--- NOTE | 2020-08-29 19:12 | PDOC PROGRESS REPORT ---
Subjective Date:: 08/29/20 Subjective:: Patient is much more alert today and his color is much better. He is complainin g of more pain, since his xanax has been decreased and chest tube has been inserted. Reason For Visit: INTRACTABLE PAIN,METASTATIC PROSTATE CANCER Physical Exam Vital Signs: Temp Pulse Resp BP Pulse Ox 98.2 F 89 22 H 147/73 H 96 08/29/20 18:33 08/29/20 18:33 08/29/20 18:33 08/29/20 18:33 08/29/20 18:33 Intake & Output 08/28/20 08/29/20 08/30/20 06:59 06:59 06:59 Intake Total 1446 240 442 Output Total 1100 3350 Balance 1446 -860 -2908 Weight 87.3 kg 87.1 kg General appearance: PRESENT: no acute distress Head exam: PRESENT: normocephalic Respiratory exam: PRESENT: other - chest tube in place Extremities exam: ABSENT: pedal edema Musculoskeletal exam: PRESENT: normal inspection Neurological exam: PRESENT: alert, awake Skin exam: PRESENT: normal color Results Laboratory Results: 08/29/20 05:03 08/29/20 05:03 08/28/20 08/29/20 08/29/20 22:45 05:03 05:03 WBC 10.7 H RBC 4.20 L Hgb 11.9 L Hct 36.1 L MCV 86 MCH 28.2 MCHC 32.9 RDW 14.1 H Plt Count 363 Sodium 138.8 Potassium 4.3 Chloride 103 Carbon Dioxide 33 H Anion Gap 3 L BUN 36 H Creatinine 1.03 Est GFR ( Amer) > 60 Glucose 127 H Calcium 7.1 L Fluid Type PLEURAL Fluid Source LUNG Fluid Color YELLOW Fluid Appearance HAZY Fluid Viscosity SLIGHTLY VISCOUS Fluid WBC 106 Fluid RBC 4195 Impressions: Abdomen/Pelvis CT 08/22/20 07:21 IMPRESSION: Interval development of innumerable pulmonary nodules, with large right and smaller left pleural effusions. Highly suspicious for diffuse metastatic disease. Marked increase in the left para aortic mass and adenopathy extending from the level of the left kidney to the pelvis. Extension into the left psoas muscle. Indwelling left ureteral stent with mild hydronephrosis. Lumbar Spine MRI 08/23/20 00:00 IMPRESSION: 1. New low T1 signal metastatic lesions within the L2, L3 and L4 vertebral bodies. 2. Infiltrative left-sided retroperitoneal paraspinal mass/adenopathy from the level of L2-L3 to L4-L5 that involves the psoas musculature and results in severe left-sided hydronephrosis. Guidance Needle Placement CT 08/25/20 00:00 IMPRESSION: Please see combined report for performance of procedure and radiologic supervision and interpretation. Chest CT 08/28/20 00:00 IMPRESSION: 1. Widespread metastatic disease as above. 2. Large right and moderate left pleural effusions. Thoracentesis may be helpful. Chest X-Ray 08/28/20 00:00 IMPRESSION: 1. Resolution of right pleural effusion status post chest tube placement. 2. 10-15% right pneumothorax. Soft Tissue Neck CT 08/28/20 00:00 IMPRESSION: No acute abnormality. No findings to correlate to the patient's reported dysphagia. Venous Doppler Study 08/28/20 00:00 IMPRESSION: No evidence of deep venous thrombosis in the visualized left lower extremity. Assessment & Plan - Diagnosis (1) Intractable pain Is this a current diagnosis for this admission?: Yes Plan: Still needs to start Radiation therapy in AM. I will increased Duragesic, but will keep Xanax at lower dose for today and consider increasing it again tomorrow. (2) Prostate cancer Is this a current diagnosis for this admission?: Yes (3) Mass of psoas muscle Is this a current diagnosis for this admission?: Yes Plan: This is thought to be a new primary, he also has pleural effusion - I will send specimen for cytology if not already done. I have explained to the patient that this is a VERY aggressive cancer but we will not know how to treat it for at least another 2 weeks, awaiting pathology report. Will continue to treat pain until then. - Time Time Spent with patient: 25-34 minutes
[2020-08-29] MEDS ORDERED: HYDROMORPHONE HCL INJ/PF 2 MG/ML AMPULE IV PRN (19:43)
[2020-08-29] MEDS: AMLODIPINE BESYLATE 10 MG TABLET PO SCH (22:01)
[2020-08-29] MEDS: VENLAFAXINE HCL 75 MG CAP.SR.24H PO SCH (22:01)
[2020-08-29] MEDS: PHARMACY COMMUNICATION ORDER MC SCH (22:02)
[2020-08-29] MEDS: TEMAZEPAM 7.5 MG CAPSULE PO PRN (22:11)
[2020-08-30 05:24] LABS: HEMATOCRIT 30.6 % (37.9-51.0); HEMOGLOBIN 10.4 g/dL (13.5-17.0); MEAN CORPUSCULAR HGB CONC 33.9 g/dL (32.0-36.0); MEAN CORPUSCULAR VOLUME 86 fl (80-97); PLATELET COUNT 351 10^3/uL (150-450); RED BLOOD COUNT 3.58 10^6/uL (4.35-5.55); RED CELL DISTRIBUTION WIDTH 13.8 % (11.5-14.0); WHITE BLOOD COUNT 6.8 10^3/uL (4.0-10.5)
[2020-08-30] MEDS: HYDROMORPHONE HCL 2 MG TABLET PO PRN ×2 (05:26→19:52)
[2020-08-30] MEDS: GABAPENTIN 100 MG CAPSULE PO SCH ×3 (05:28→21:53)
[2020-08-30 05:57] LABS: BLOOD UREA NITROGEN 30 mg/dL (7-20); CALCIUM 7.2 mg/dL (8.4-10.2); CHLORIDE 98 mmol/L (98-107); GLUCOSE 127 mg/dL (75-110); POTASSIUM 4.2 mmol/L (3.6-5.0)
[2020-08-30 06:10] LABS: CARBON DIOXIDE 38 mmol/L (22-30)
[2020-08-30 06:12] LABS: ANION GAP 1 (5-19)
--- NOTE | 2020-08-30 08:50 | PDOC PROGRESS REPORT ---
Subjective Date:: 08/30/20 Subjective:: Although yesterday, patient was very agitated, awake and in pain, today, he is a gain more sedated. He is hopeful that he will be able to withstand radiation therapy today. Reason For Visit: INTRACTABLE PAIN,METASTATIC PROSTATE CANCER Physical Exam Vital Signs: Temp Pulse Resp BP Pulse Ox 97.7 F 84 20 115/68 100 08/30/20 04:00 08/30/20 04:00 08/30/20 04:00 08/30/20 04:00 08/30/20 04:00 Intake & Output 08/29/20 08/30/20 08/31/20 06:59 06:59 06:59 Intake Total 240 884 Output Total 1100 4400 Balance -860 -3516 Weight 87.1 kg 87 kg General appearance: PRESENT: no acute distress, well-developed, well-nourished Head exam: PRESENT: normocephalic Eye exam: PRESENT: EOMI Respiratory exam: PRESENT: clear to auscultation joana, unlabored, other - chest tube in place. Cardiovascular exam: PRESENT: RRR Extremities exam: ABSENT: pedal edema Neurological exam: PRESENT: alert, awake Psychiatric exam: PRESENT: appropriate affect Skin exam: PRESENT: normal color Results Laboratory Results: 08/30/20 05:00 08/30/20 05:00 08/28/20 08/30/20 08/30/20 22:45 05:00 05:00 WBC 6.8 RBC 3.58 L Hgb 10.4 L Hct 30.6 L MCV 86 MCH 29.0 MCHC 33.9 RDW 13.8 Plt Count 351 Sodium 136.9 L Potassium 4.2 Chloride 98 Carbon Dioxide 38 H Anion Gap 1 L BUN 30 H Creatinine 0.91 Est GFR ( Amer) > 60 Glucose 127 H Calcium 7.2 L Fluid Total Protein 3.5 Impressions: Abdomen/Pelvis CT 08/22/20 07:21 IMPRESSION: Interval development of innumerable pulmonary nodules, with large right and smaller left pleural effusions. Highly suspicious for diffuse metastatic disease. Marked increase in the left para aortic mass and adenopathy extending from the level of the left kidney to the pelvis. Extension into the left psoas muscle. Indwelling left ureteral stent with mild hydronephrosis. Lumbar Spine MRI 08/23/20 00:00 IMPRESSION: 1. New low T1 signal metastatic lesions within the L2, L3 and L4 vertebral bodies. 2. Infiltrative left-sided retroperitoneal paraspinal mass/adenopathy from the level of L2-L3 to L4-L5 that involves the psoas musculature and results in severe left-sided hydronephrosis. Guidance Needle Placement CT 08/25/20 00:00 IMPRESSION: Please see combined report for performance of procedure and radiologic supervision and interpretation. Chest CT 08/28/20 00:00 IMPRESSION: 1. Widespread metastatic disease as above. 2. Large right and moderate left pleural effusions. Thoracentesis may be helpful. Chest X-Ray 08/28/20 00:00 IMPRESSION: 1. Resolution of right pleural effusion status post chest tube placement. 2. 10-15% right pneumothorax. Soft Tissue Neck CT 08/28/20 00:00 IMPRESSION: No acute abnormality. No findings to correlate to the patient's r eported dysphagia. Venous Doppler Study 08/28/20 00:00 IMPRESSION: No evidence of deep venous thrombosis in the visualized left lower extremity. Assessment & Plan - Diagnosis (1) Intractable pain Is this a current diagnosis for this admission?: Yes Plan: Still trying to fine-tune narcotics. Trying to decrease xanax to be able to increase pain medications. Duragesic now at 75 mcg. PO dilaudid. He receiv ed 1 dose toradol yesterday. (2) Prostate cancer Is this a current diagnosis for this admission?: Yes (3) Mass of psoas muscle Is this a current diagnosis for this admission?: Yes Plan: Still awaiting final path report as to type of cancer. Start palliative radiation therapy today. (4) Pleural effusion Is this a current diagnosis for this admission?: Yes Plan: Await cytology. Surgery following. - Time Time Spent with patient: 15-24 minutes
--- NOTE | 2020-08-30 09:29 | RADIOLOGY REPORT (SQ) ---
EXAM DESCRIPTION: CHEST SINGLE VIEW IMAGES COMPLETED DATE/TIME: 08/30/2020 9:18 am REASON FOR STUDY: Interval change in right and left lung villanueva COMPARISON: 08/28/2020 NUMBER OF VIEWS: One view. TECHNIQUE: Single frontal radiographic image of the chest acquired. LIMITATIONS: None. FINDINGS: LUNGS AND PLEURA: Stable in appearance. Large-bore right-sided chest tube remains in plac e. Left pleural effusion appears slightly smaller. Small right apical pneumothorax remains. MEDIASTINUM AND HILAR STRUCTURES: Stable heart size and mediastinal structures. HEART AND VASCULAR STRUCTURES: Stable appearance. BONES: No acute findings. HARDWARE: None in the chest. OTHER: No other significant finding. IMPRESSION: No significant interval change. Left-sided pleural effusion is slightly smaller. Large -bore right-sided chest tube remains in place with small apical pneumothorax. TECHNICAL DOCUMENTATION: JOB ID: [id number] 2010 [employer]- All Rights Reserved Reading location - IP/workstation name: [email or web address]
[2020-08-30] MEDS: FAMOTIDINE 20 MG TABLET PO SCH ×2 (10:58→21:53)
[2020-08-30] MEDS: LISINOPRIL 10 MG TABLET PO SCH (10:59)
[2020-08-30] MEDS: HYDROCHLOROTHIAZIDE 25 MG TABLET PO SCH (10:59)
[2020-08-30] MEDS: DEXAMETHASONE 4 MG TABLET PO SCH ×2 (11:00→21:52)
[2020-08-30] MEDS: LIDOCAINE 5% (700 MG) TRANSDERMAL ADH..PATCH TP SCH (11:00)
[2020-08-30] MEDS: DOCUSATE SODIUM 100 MG CAPSULE PO SCH ×2 (11:00→18:07)
[2020-08-30] MEDS: HYDROMORPHONE HCL INJ/PF 2 MG/ML AMPULE IV PRN (14:25)
--- NOTE | 2020-08-30 16:00 | PDOC PROGRESS REPORT ---
Subjective Date:: 08/30/20 Subjective:: Patient was seen on morning rounds. He is found sitting up in bed on supplemental oxygen by nasal cannula. He reports that his pain is slightly better. Also notes that his breathing is improved and denies cough. Waiting for radiation treatment today; hoping that he will be able to tolerate the positioning today. Appetite is slightly improved. He denies fever, chills, chest pain, palpitations, abdominal pain, nausea, vomiting and diarrhea. He has no questions or concerns at this time. No concerns per nursing. Reason For Visit: INTRACTABLE PAIN,METASTATIC PROSTATE CANCER Physical Exam Vital Signs: Temp Pulse Resp BP Pulse Ox 97.4 F 83 19 119/65 98 08/30/20 07:55 08/30/20 07:55 08/30/20 07:55 08/30/20 07:55 08/30/20 07:55 Intake & Output 08/29/20 08/30/20 08/31/20 06:59 06:59 06:59 Intake Total 240 884 180 Output Total 1100 4400 290 Balance -860 -3516 -110 Weight 87.1 kg 87 kg 87 kg General appearance: PRESENT: no acute distress, well-developed, well-nourished Head exam: PRESENT: atraumatic, normocephalic Eye exam: PRESENT: conjunctiva pink, EOMI, PERRLA. ABSENT: scleral icterus Mouth exam: PRESENT: moist, tongue midline Respiratory exam: PRESENT: chest wall tenderness - Right side chest tube, dec reased breath sounds - R>L, symmetrical, other - supplemental oxygen via NC. ABSENT: rales, rhonchi, wheezes Cardiovascular exam: PRESENT: RRR. ABSENT: diastolic murmur, rubs, systolic murmur Vascular exam: PRESENT: normal capillary refill Extremities exam: PRESENT: full ROM. ABSENT: calf tenderness, clubbing, pedal edema, +1 edema - resolved Neurological exam: PRESENT: alert, awake, oriented to person, oriented to place, oriented to time, oriented to situation, CN II-XII grossly intact, other - fatigued. ABSENT: motor sensory deficit Psychiatric exam: PRESENT: appropriate affect, normal mood. ABSENT: homicidal ideation, suicidal ideation Skin exam: PRESENT: dry, intact, warm. ABSENT: cyanosis, rash Results Laboratory Results: 08/30/20 05:00 08/30/20 05:00 08/28/20 08/30/20 08/30/20 22:45 05:00 05:00 WBC 6.8 RBC 3.58 L Hgb 10.4 L Hct 30.6 L MCV 86 MCH 29.0 MCHC 33.9 RDW 13.8 Plt Count 351 Sodium 136.9 L Potassium 4.2 Chloride 98 Carbon Dioxide 38 H Anion Gap 1 L BUN 30 H Creatinine 0.91 Est GFR ( Amer) > 60 Glucose 127 H Calcium 7.2 L Fluid Total Protein 3.5 Impressions: Abdomen/Pelvis CT 08/22/20 07:21 IMPRESSION: Interval development of innumerable pulmonary nodules, with large right and smaller left pleural effusions. Highly suspicious for diffuse metastatic disease. Marked increase in the left para aortic mass and adenopathy extending from the level of the left kidney to the pelvis. Extension into the left psoas muscle. Indwelling left ureteral stent with mild hydronephrosis. Lumbar Spine MRI 08/23/20 00:00 IMPRESSION: 1. New low T1 signal metastatic lesions within the L2, L3 and L4 vertebral bodies. 2. Infiltrative left-sided retroperitoneal paraspinal mass/adenopathy from the level of L2-L3 to L4-L5 that involves the psoas musculature and results in severe left-sided hydronephrosis. Guidance Needle Placement CT 08/25/20 00:00 IMPRESSION: Please see combined report for performance of procedure and radiologic supervision and interpretation. Chest CT 08/28/20 00:00 IMPRESSION: 1. Widespread metastatic disease as above. 2. Large right and moderate left pleural effusions. Thoracentesis may be helpful. Soft Tissue Neck CT 08/28/20 00:00 IMPRESSION: No acute abnormality. No findings to correlate to the patient's reported dysphagia. Venous Doppler Study 08/28/20 00:00 IMPRESSION: No evidence of deep venous thrombosis in the visualized left lower extremity. Chest X-Ray 08/30/20 06:00 IMPRESSION: No significant interval change. Left-sided pleural effusion is slightly smaller. Large-bore right-sided chest tube remains in place with small apical pneumothorax. Assessment and Plan - Diagnosis (1) Intractable pain Is this a current diagnosis for this admission?: Yes Plan: Much improved. Complaining of severe pain to left sacrum, groins, anterior proximal left lower extremity pain. 08/22/2020. CT abdomen pelvis positive for extensive metastasis. 08/23/2020. MRI lumbar spine new low T1 signal metastatic lesions within the L2, L3 and L4 vertebral bodies. 2 infiltrative left-sided retroperitoneal paraspinal mass/adenopathy from the level of L2-L3 to L4-L5 does not involve the psoas musculature. Severe left-sided hydronephrosis Discussed plan with Dr. Mercer. Continue fentanyl patch; dose increased to 75 mg/24hr today.. Oral Dilaudid 5 mg every 6 hours as needed. Breakthrough Dilaudid 0.5 mg IV every 6 hours as needed Dexamethasone for nerve compression. Plan for radiation therapy; being arranged by Dr. Mercer. Oncology on board. Recommendations noted. Non-opiate regiment escalated; lidoderm patches, gabapentin, tylenol, and toradol Nonpharmocological interventions. (2) Malignant pleural effusion Is this a current diagnosis for this admission?: Yes Plan: Pleural effusion cultures are negative at 24 hours. Cytology are pending. Surgery was consulted. Appreciate their expertise. With a chest tube to low wall suction. 3L immediate output. Continues to put out ~800/shift Encourage pulmonary toilet. (3) Prostate cancer Is this a current diagnosis for this admission?: Yes Plan: Diagnosed in 2018. Status post Lupron injection and radiation. Psoas muscle biopsy completed; results pending. Primary plan per Oncology. (4) Hypertension Is this a current diagnosis for this admission?: Yes Plan: Acceptable blood pressures today. Euvolemic. Monitor vitals. Provide appropriate pain control. Continue home dose lisinopril/hctz Continue amlodipine 10 mg qHS. As needed IV labetalol. Adjust meds as needed. (5) Mass of psoas muscle Is this a current diagnosis for this admission?: Yes Plan: Biopsy completed; results pending. Primary management per Dr. Mercer. (6) Metastatic cancer Qualifiers: Area of secondary neoplastic involvement: other site Qualified Code(s): C79.89 - Secondary malignant neoplasm of other specified sites Is this a current diagnosis for this admission?: Yes Plan: Plan as per above. (7) Anxiety Is this a current diagnosis for this admission?: Yes Plan: Increased sedation w/ dilaudid and fentanyl use. Decrease xanax to 0.25 mg q8hp (8) Pleural effusion Is this a current diagnosis for this admission?: Yes (9) Leg edema, left Is this a current diagnosis for this admission?: Yes Plan: Improved. Possibly lymphatic return compression r/t malignancy. Vnous Doppler negative for SVT/DVT BETY james keep elevated (10) Acute laryngitis Is this a current diagnosis for this admission?: Yes Plan: Improved today. Denies pain. Does report difficulty swallowing. Noted to have lost his voice this morning. Slight lymphardenopathy on exam. FROM w/o pain CT Soft tissue neck did not show concerning mass/obstructions. COVID negative. Continue dexamethasone Encourage po fluids (11) Hydronephrosis Qualifiers: Hydronephrosis type: unspecified Qualified Code(s): N13.30 - Unspecified hydronephrosis Is this a current diagnosis for this admission?: Yes Plan: History of hydronephrosis status post left ureteral stent placement. MRI lumbar spine shows severe left-sided hydronephrosis Monitor renal very function closely. Unfortunately no urology consult available at [facility]. Consults urology and transfer if indicated. (12) Acute kidney injury superimposed on CKD Is this a current diagnosis for this admission?: Yes Plan: Resolved. Prerenal due to low p.o. intake. Cautious volume decision guided by volume status. Monitor volume status and electrolytes, replace electrolytes as needed. Avoid nephrotoxic meds. - Time Time Spent with patient: 25-34 minutes Medications reviewed and adjusted accordingly: Yes Anticipated Discharge Disposition: Home, Self Care Anticipated Discharge Timeframe: TBD
--- NOTE | 2020-08-30 16:58 | PDOC PROGRESS REPORT ---
Subjective Date:: 08/30/20 Subjective:: 60-year-old male with a history of prostate cancer. He has a new right-sided pl eural effusion that was drained with a chest tube due to his instability yesterday. Today, he reports less shortness of breath. He does report some discomfort at the chest tube site, but reports that it is "tolerable". He does report fatigue and malaise, but denies dizziness, nausea, vomiting, abdominal pain. Reason For Visit: INTRACTABLE PAIN,METASTATIC PROSTATE CANCER Physical Exam Vital Signs: Temp Pulse Resp BP Pulse Ox 97.4 F 83 19 119/65 98 08/30/20 10:00 08/30/20 07:55 08/30/20 07:55 08/30/20 07:55 08/30/20 07:55 Intake & Output 08/29/20 08/30/20 08/31/20 06:59 06:59 06:59 Intake Total 240 884 180 Output Total 1100 4400 290 Balance -860 -3516 -110 Weight 87.1 kg 87 kg 87 kg General appearance: PRESENT: cooperative Head exam: PRESENT: atraumatic Eye exam: ABSENT: scleral icterus Mouth exam: PRESENT: moist, neck supple Neck exam: ABSENT: meningismus, tenderness, thyromegaly, tracheal deviation Respiratory exam: PRESENT: unlabored. ABSENT: tachypnea Cardiovascular exam: ABSENT: tachycardia GI/Abdominal exam: PRESENT: soft. ABSENT: tenderness Rectal exam: PRESENT: deferred Extremities exam: ABSENT: clubbing Musculoskeletal exam: ABSENT: deformity Neurological exam: PRESENT: alert, awake, oriented to person, oriented to place, oriented to time Psychiatric exam: ABSENT: agitated, anxious Focused psych exam: ABSENT: delusional Skin exam: ABSENT: cyanosis, erythema, jaundice Results Laboratory Results: 08/30/20 05:00 08/30/20 05:00 08/28/20 08/30/20 08/30/20 22:45 05:00 05:00 WBC 6.8 RBC 3.58 L Hgb 10.4 L Hct 30.6 L MCV 86 MCH 29.0 MCHC 33.9 RDW 13.8 Plt Count 351 Sodium 136.9 L Potassium 4.2 Chloride 98 Carbon Dioxide 38 H Anion Gap 1 L BUN 30 H Creatinine 0.91 Est GFR ( Amer) > 60 Glucose 127 H Calcium 7.2 L Fluid Total Protein 3.5 Impressions: Abdomen/Pelvis CT 08/22/20 07:21 IMPRESSION: Interval development of innumerable pulmonary nodules, with large right and smaller left pleural effusions. Highly suspicious for diffuse metastatic disease. Marked increase in the left para aortic mass and adenopathy extending from the level of the left kidney to the pelvis. Extension into the left psoas muscle. Indwelling left ureteral stent with mild hydronephrosis. Lumbar Spine MRI 08/23/20 00:00 IMPRESSION: 1. New low T1 signal metastatic lesions within the L2, L3 and L4 vertebral bodies. 2. Infiltrative left-sided retroperitoneal paraspinal mass/adenopathy from the level of L2-L3 to L4-L5 that involves the psoas musculature and results in severe left-sided hydronephrosis. Guidance Needle Placement CT 08/25/20 00:00 IMPRESSION: Please see combined report for performance of procedure and radiologic supervision and interpretation. Chest CT 08/28/20 00:00 IMPRESSION: 1. Widespread metastatic disease as above. 2. Large right and moderate left pleural effusions. Thoracentesis may be helpful. Soft Tissue Neck CT 08/28/20 00:00 IMPRESSION: No acute abnormality. No findings to correlate to the patient's reported dysphagia. Venous Doppler Study 08/28/20 00:00 IMPRESSION: No evidence of deep venous thrombosis in the visualized left lower extremity. Chest X-Ray 08/30/20 06:00 IMPRESSION: No significant interval change. Left-sided pleural effusion is slightly smaller. Large-bore right-sided chest tube remains in place with small apical pneumothorax. Assessment & Plan - Diagnosis (1) Malignant pleural effusion Is this a current diagnosis for this admission?: Yes - Time Anticipated Discharge Disposition: unknown Anticipated Discharge Timeframe: unknown - Plan Summary Plan Summary: 60-year-old male with a pleural effusion, very likely malignant in nature. Cytology is pending. Oncology is following. I have reviewed his chest x-ray for today. Chest tube appears to be adequately draining the thoracic cavity. There is no significant accumulation of fluid on the right. Will await 24-hour totals of fluid measurements over the next several days before pursuing any other invasive therapies. Surgery will continue to follow with you.
[2020-08-30] MEDS ORDERED: ALPRAZOLAM 0.5 MG TABLET PO SCH (19:00)
[2020-08-30] MEDS: ALPRAZOLAM 0.5 MG TABLET PO PRN (20:29)
[2020-08-30] MEDS: VENLAFAXINE HCL 75 MG CAP.SR.24H PO SCH (21:52)
[2020-08-30] MEDS: TEMAZEPAM 7.5 MG CAPSULE PO PRN (21:53)
[2020-08-30] MEDS: CARISOPRODOL 350 MG TABLET PO PRN (21:53)
[2020-08-30] MEDS: AMLODIPINE BESYLATE 10 MG TABLET PO SCH (21:53)
[2020-08-30] MEDS: PHARMACY COMMUNICATION ORDER MC SCH (21:59)
[2020-08-31] MEDS: HYDROMORPHONE HCL 2 MG TABLET PO PRN ×2 (03:13→18:42)
[2020-08-31 05:24] LABS: HEMATOCRIT 33.4 % (37.9-51.0); HEMOGLOBIN 11.1 g/dL (13.5-17.0); MEAN CORPUSCULAR HEMOGLOBIN 28.6 pg (27.0-33.4); MEAN CORPUSCULAR HGB CONC 33.4 g/dL (32.0-36.0); MEAN CORPUSCULAR VOLUME 86 fl (80-97); PLATELET COUNT 357 10^3/uL (150-450); RED CELL DISTRIBUTION WIDTH 13.9 % (11.5-14.0); WHITE BLOOD COUNT 7.2 10^3/uL (4.0-10.5)
[2020-08-31 05:40] LABS: BLOOD UREA NITROGEN 28 mg/dL (7-20); CALCIUM 7.3 mg/dL (8.4-10.2); CHLORIDE 93 mmol/L (98-107); GLUCOSE 139 mg/dL (75-110); POTASSIUM 4.5 mmol/L (3.6-5.0)
[2020-08-31 05:48] LABS: CARBON DIOXIDE 39 mmol/L (22-30)
[2020-08-31 06:37] LABS: ANION GAP -1 (5-19)
[2020-08-31] MEDS: GABAPENTIN 100 MG CAPSULE PO SCH ×3 (06:51→21:54)
[2020-08-31] MEDS: ALPRAZOLAM 0.5 MG TABLET PO PRN ×2 (06:51→15:51)
--- NOTE | 2020-08-31 08:11 | PDOC PROGRESS REPORT ---
Subjective Date:: 08/31/20 Subjective:: comfortable Reason For Visit: INTRACTABLE PAIN,METASTATIC PROSTATE CANCER Physical Exam Vital Signs: Temp Pulse Resp BP Pulse Ox 97.7 F 93 18 143/84 H 97 08/30/20 23:40 08/30/20 23:40 08/30/20 23:40 08/30/20 23:40 08/30/20 23:40 Intake & Output 08/30/20 08/31/20 09/01/20 06:59 06:59 06:59 Intake Total 884 805 Output Total 4400 1690 Balance -3516 -885 Weight 87 kg 81.9 kg General appearance: PRESENT: no acute distress Head exam: PRESENT: normocephalic Eye exam: PRESENT: EOMI Ear exam: PRESENT: normal external ear exam Mouth exam: PRESENT: moist Teeth exam: PRESENT: poor dentation Neck exam: PRESENT: full ROM Respiratory exam: PRESENT: decreased breath sounds Cardiovascular exam: PRESENT: RRR Pulses: PRESENT: normal radial pulses, normal femoral pulses Vascular exam: PRESENT: normal capillary refill Breast: PRESENT: Normal GI/Abdominal exam: PRESENT: soft Rectal exam: PRESENT: deferred Extremities exam: PRESENT: full ROM Musculoskeletal exam: PRESENT: full ROM Neurological exam: PRESENT: alert, awake, oriented to person, oriented to place Psychiatric exam: PRESENT: appropriate affect Skin exam: PRESENT: dry Results Laboratory Results: 08/31/20 04:44 08/31/20 04:44 08/31/20 08/31/20 04:44 04:44 WBC 7.2 RBC 3.90 L Hgb 11.1 L Hct 33.4 L MCV 86 MCH 28.6 MCHC 33.4 RDW 13.9 Plt Count 357 Sodium 131.5 L Potassium 4.5 Chloride 93 L Carbon Dioxide 39 H Anion Gap -1 L BUN 28 H Creatinine 0.82 Est GFR ( Amer) > 60 Glucose 139 H Calcium 7.3 L Impressions: Abdomen/Pelvis CT 08/22/20 07:21 IMPRESSION: Interval development of innumerable pulmonary nodules, with large right and smaller left pleural effusions. Highly suspicious for diffuse metastatic disease. Marked increase in the left para aortic mass and adenopathy extending from the level of the left kidney to the pelvis. Extension into the left psoas muscle. Indwelling left ureteral stent with mild hydronephrosis. Lumbar Spine MRI 08/23/20 00:00 IMPRESSION: 1. New low T1 signal metastatic lesions within the L2, L3 and L4 vertebral bodies. 2. Infiltrative left-sided retroperitoneal paraspinal mass/adenopathy from the level of L2-L3 to L4-L5 that involves the psoas musculature and results in severe left-sided hydronephrosis. Guidance Needle Placement CT 08/25/20 00:00 IMPRESSION: Please see combined report for performance of procedure and radi ologic supervision and interpretation. Chest CT 08/28/20 00:00 IMPRESSION: 1. Widespread metastatic disease as above. 2. Large right and moderate left pleural effusions. Thoracentesis may be helpful. Soft Tissue Neck CT 08/28/20 00:00 IMPRESSION: No acute abnormality. No findings to correlate to the patient's reported dysphagia. Venous Doppler Study 08/28/20 00:00 IMPRESSION: No evidence of deep venous thrombosis in the visualized left lower extremity. Chest X-Ray 08/30/20 06:00 IMPRESSION: No significant interval change. Left-sided pleural effusion is slightly smaller. Large-bore right-sided chest tube remains in place with small apical pneumothorax. Assessment & Plan - Time Anticipated Discharge Disposition: Home, Self Care Anticipated Discharge Timeframe: unk - Plan Summary Plan Summary: impression, right sided pleural effusion prob metastatic disease chest tube still with increased op 200cc yesteday pt ely diet plan cont chest tube will place on water seal may need pleurx cath.
--- NOTE | 2020-08-31 08:48 | RADIOLOGY REPORT (SQ) ---
EXAM DESCRIPTION: CT BIOPSY MUSCLE IMAGES COMPLETED DATE/TIME: 08/25/2020 9:51 am REASON FOR STUDY: psoas mass COMPARISON: None. TECHNIQUE: CT guided biopsy of the left retroperitoneal mass performed with conscious sedation. CT Fluoroscopy Time: [address] scanners at this facility use dose modulation, iterative reconstruction, and/or weight based d osing when appropriate to reduce radiation dose to as low as reasonably achievable (ALARA). [facility]: Dose Right [facility]: CareDose [facility]: Dose Right [facility]: Teradose 4D [facility]: [employer] RADIATION DOSE: CT Rad equipment meets quality standard of care and radiation dose reduction techni ques were employed. CTDIvol: 4.0 - 18.7 mGy. DLP: 515 mGy-cm.mGy. FINDINGS: After obtaining informed consent and explaining the risks and benefits of conscious sedati on,the patient agreed to the procedure. Prior to the procedure, a time out was performed to verify th e patient's identity and planned procedure. IV sedation was administered and physician direction by the registered nurse using 1 milligrams of Ve rsed and 100 micrograms of fentanyl, for conscious sedation. Physiologic monitoring was provided befo re, during, and after sedation. The total sedation time was 30 minutes. Documentation face to face time, the performing proceduralist, spent monitoring the patient: [address] scanning was performed to localize the percutaneous site for the biopsy approach. After sterile skin prep and local lidocaine for skin and deep tissue anesthesia, a coaxial biopsy nee dle was used to obtain multiple cores of tissue. The biopsy tissue was submitted to the lab in forma laurie. There were no immediate complications. Pathology is pending at the time of dictation. IMPRESSION: CT GUIDED BIOPSY OF THE LEFT RETROPERITONEAL MASS PERFORMED WITHOUT IMMEDIATE COMPLICATI ON. PATHOLOGY POSITIVE FOR MALIGNANCY WITH DEFINITIVE DIAGNOSIS PENDING. COMMENT: Quality ID [id number]: Final reports for procedures using fluoroscopy that document radiation exp osure indices, or exposure time and number of fluorographic images (if radiation exposure indices are not available) Patient medication list reviewed: Yes- Quality ID# [id number]:Eligible professional attests to documenting i n the medical record they obtained, updated, or reviewed the patient's current medications.. TECHNICAL DOCUMENTATION: JOB ID: [id number] Quality ID# [id number]: Final reports with documentation of one or more dose reduction techniques (e.g., Aut omated exposure control, adjustment of the mA and/or kV according to patient size, use of iterative r econstruction technique) 2010 [employer]- All Rights Reserved Reading location - IP/workstation name: [id number]
--- NOTE | 2020-08-31 08:51 | PDOC PROGRESS REPORT ---
Subjective Date:: 08/31/20 Subjective:: Patient is sitting up eating breakfast. Much less sedated and is not currently complaining of pain. He was able to tolerate radiation therapy yesterday. Reason For Visit: INTRACTABLE PAIN,METASTATIC PROSTATE CANCER Physical Exam Vital Signs: Temp Pulse Resp BP Pulse Ox 97.7 F 93 18 143/84 H 97 08/30/20 23:40 08/30/20 23:40 08/30/20 23:40 08/30/20 23:40 08/30/20 23:40 Intake & Output 08/30/20 08/31/20 09/01/20 06:59 06:59 06:59 Intake Total 884 805 Output Total 4400 1690 Balance -4856 -885 Weight 87 kg 81.9 kg General appearance: PRESENT: no acute distress Head exam: PRESENT: normocephalic Eye exam: PRESENT: EOMI Respiratory exam: PRESENT: unlabored Extremities exam: ABSENT: pedal edema Neurological exam: PRESENT: alert, awake Psychiatric exam: PRESENT: appropriate affect Skin exam: PRESENT: normal color Results Laboratory Results: 08/31/20 04:44 08/31/20 04:44 08/31/20 08/31/20 04:44 04:44 WBC 7.2 RBC 3.90 L Hgb 11.1 L Hct 33.4 L MCV 86 MCH 28.6 MCHC 33.4 RDW 13.9 Plt Count 357 Sodium 131.5 L Potassium 4.5 Chloride 93 L Carbon Dioxide 39 H Anion Gap -1 L BUN 28 H Creatinine 0.82 Est GFR ( Amer) > 60 Glucose 139 H Calcium 7.3 L Impressions: Abdomen/Pelvis CT 08/22/20 07:21 IMPRESSION: Interval development of innumerable pulmonary nodules, with large right and smaller left pleural effusions. Highly suspicious for diffuse metastatic disease. Marked increase in the left para aortic mass and adenopathy extending from the level of the left kidney to the pelvis. Extension into the left psoas muscle. Indwelling left ureteral stent with mild hydronephrosis. Lumbar Spine MRI 08/23/20 00:00 IMPRESSION: 1. New low T1 signal metastatic lesions within the L2, L3 and L4 vertebral bodies. 2. Infiltrative left-sided retroperitoneal paraspinal mass/adenopathy from the level of L2-L3 to L4-L5 that involves the psoas musculature and results in severe left-sided hydronephrosis. Guidance Needle Placement CT 08/25/20 00:00 IMPRESSION: Please see combined report for performance of procedure and radiologic supervision and interpretation. Chest CT 08/28/20 00:00 IMPRESSION: 1. Widespread metastatic disease as above. 2. Large right and moderate left pleural effusions. Thoracentesis may be helpful. Soft Tissue Neck CT 08/28/20 00:00 IMPRESSION: No acute abnormality. No findings to correlate to the patient's re ported dysphagia. Venous Doppler Study 08/28/20 00:00 IMPRESSION: No evidence of deep venous thrombosis in the visualized left lower extremity. Chest X-Ray 08/30/20 06:00 IMPRESSION: No significant interval change. Left-sided pleural effusion is slightly smaller. Large-bore right-sided chest tube remains in place with small apical pneumothorax. Assessment & Plan - Diagnosis (1) Intractable pain Is this a current diagnosis for this admission?: Yes Plan: Duragesic and Dilaudid PRN. We discussed the fact that if radiation is able to help the pain, he may not need as much pain medication. (2) Prostate cancer Is this a current diagnosis for this admission?: Yes (3) Mass of psoas muscle Is this a current diagnosis for this admission?: Yes Plan: This is an undifferentiated carcinoma of unknown primary. Further help from pathology as to cell of origin and possible treatments may take another 10-14 days. I discussed with the patient how aggressive this tumor is and how aggressive he would like to be in the future. He will consider this and speak with other family members. (4) Pleural effusion Is this a current diagnosis for this admission?: Yes Plan: As per Surgery. Patient may benefit from Pleurex for home use. - Time Time Spent with patient: 15-24 minutes
[2020-08-31] MEDS: LISINOPRIL 10 MG TABLET PO SCH (10:41)
[2020-08-31] MEDS: FAMOTIDINE 20 MG TABLET PO SCH ×2 (10:41→21:54)
[2020-08-31] MEDS: DEXAMETHASONE 4 MG TABLET PO SCH ×2 (10:41→21:55)
[2020-08-31] MEDS: HYDROCHLOROTHIAZIDE 25 MG TABLET PO SCH (10:41)
[2020-08-31] MEDS: LIDOCAINE 5% (700 MG) TRANSDERMAL ADH..PATCH TP SCH (10:42)
[2020-08-31] MEDS: DOCUSATE SODIUM 100 MG CAPSULE PO SCH ×2 (10:48→18:33)
--- NOTE | 2020-08-31 13:15 | RADIOLOGY REPORT (SQ) ---
EXAM DESCRIPTION: CHEST SINGLE VIEW IMAGES COMPLETED DATE/TIME: 08/31/2020 12:44 pm REASON FOR STUDY: chest tube plcms COMPARISON: 08/30/2020 EXAM PARAMETERS: NUMBER OF VIEWS: One view. TECHNIQUE: Single frontal radiographic view of the chest acquired. RADIATION DOSE: NA LIMITATIONS: None. FINDINGS: LUNGS AND PLEURA: Patchy bilateral infiltrates. Left pneumothorax. MEDIASTINUM AND HILAR STRUCTURES: No masses. Contour normal. HEART AND VASCULAR STRUCTURES: Heart normal in size. Normal vasculature. BONES: No acute findings. HARDWARE: Chest tube remains in place on the right. OTHER: No other significant finding. IMPRESSION: Stable appearance of the chest. Bilateral infiltrates. Left pleural effusion. Chest t ube. TECHNICAL DOCUMENTATION: JOB ID: [id number] 2010 [employer]- All Rights Reserved Reading location - IP/workstation name: [email or web address]
[2020-08-31] MEDS: HYDROMORPHONE HCL INJ/PF 2 MG/ML AMPULE IV PRN ×2 (13:56→20:45)
--- NOTE | 2020-08-31 17:24 | PDOC PROGRESS REPORT ---
Subjective Date:: 08/31/20 Subjective:: 08/31/20 Patient was seen and examined at bedside. The patient is a 60 year old g entleman with history of prostate cancer who was admitted 08/22/20 due to increasing pain. MRI spine showed new low T1 signal metastatic lesions within the L2-L3 and L4 vertebral bodies. Infiltrative left-sided retroperitoneal paraspinal mass from the level of L2-L3 to L4-L5 that involves the psoas muscle and resultant severe left-sided hydronephrosis. Patient underwent biopsy August 24, 2020. Pathology results still pending. Chest CT done on August 28, 2020 showed large right-sided pleural effusion and moderate left-sided pleural effusion. Surgery was consulted who placed a chest tube on his right side for drainage of pleural fluid. Cytology report of pleural fluid showed metastatic carcinoma. Patient was started on palliative radiation. Patient was started on fentanyl patch and Dilaudid p.o. and IV to control his pain. We are cutting back on his Xanax since we are increasing his pain medications to prevent deep sedation. However according to the nurse she found his bottle of Xanax beside him and was taking his own medications despite orders of cutting down doses. Patient initially refused to give him his bottles but eventually did. Before giving the bottle to the nurses he took 1.5 mg dose of his Xanax. Reason For Visit: INTRACTABLE PAIN,METASTATIC PROSTATE CANCER Physical Exam Vital Signs: Temp Pulse Resp BP Pulse Ox 97.5 F 99 17 157/79 H 95 08/31/20 15:56 08/31/20 15:56 08/31/20 15:56 08/31/20 15:56 08/31/20 15:56 Intake & Output 08/30/20 08/31/20 09/01/20 06:59 06:59 06:59 Intake Total 884 805 225 Output Total 4400 1690 350 Balance -3516 -885 -125 Weight 87 kg 81.9 kg 82.3 kg General appearance: PRESENT: cooperative, mild distress Head exam: PRESENT: atraumatic, normocephalic Eye exam: PRESENT: EOMI, PERRLA Mouth exam: PRESENT: moist Neck exam: PRESENT: full ROM Respiratory exam: PRESENT: clear to auscultation joana, symmetrical, unlabored Cardiovascular exam: PRESENT: RRR, +S1, +S2 Pulses: PRESENT: +2 pedal pulses bilateral GI/Abdominal exam: PRESENT: normal bowel sounds, soft. ABSENT: rebound, tenderness Extremities exam: PRESENT: full ROM Musculoskeletal exam: PRESENT: full ROM Neurological exam: PRESENT: awake, oriented to person, oriented to place, oriented to time, other - Patient appears mild to moderately sedated. Skin exam: PRESENT: normal color Results Laboratory Results: 08/31/20 04:44 08/31/20 04:44 08/31/20 08/31/20 04:44 04:44 WBC 7.2 RBC 3.90 L Hgb 11.1 L Hct 33.4 L MCV 86 MCH 28.6 MCHC 33.4 RDW 13.9 Plt Count 357 Sodium 131.5 L Potassium 4.5 Chloride 93 L Carbon Dioxide 39 H Anion Gap -1 L BUN 28 H Creatinine 0.82 Est GFR ( Amer) > 60 Glucose 139 H Calcium 7.3 L Impressions: Abdomen/Pelvis CT 08/22/20 07:21 IMPRESSION: Interval development of innumerable pulmonary nodules, with large right and smaller left pleural effusions. Highly suspicious for diffuse metastatic disease. Marked increase in the left para aortic mass and adenopathy extending from the level of the left kidney to the pelvis. Extension into the left psoas muscle. Indwelling left ureteral stent with mild hydronephrosis. Lumbar Spine MRI 08/23/20 00:00 IMPRESSION: 1. New low T1 signal metastatic lesions within the L2, L3 and L4 vertebral bodies. 2. Infiltrative left-sided retroperitoneal paraspinal mass/adenopathy from the level of L2-L3 to L4-L5 that involves the psoas musculature and results in severe left-sided hydronephrosis. Guidance Needle Placement CT 08/25/20 00:00 IMPRESSION: Please see combined report for performance of procedure and radiologic supervision and interpretation. Muscle Biopsy CT 08/25/20 08:00 IMPRESSION: CT GUIDED BIOPSY OF THE LEFT RETROPERITONEAL MASS PERFORMED WITHOUT IMMEDIATE COMPLICATION. PATHOLOGY POSITIVE FOR MALIGNANCY WITH DEFINITIVE DIAGNOSIS PENDING. Chest CT 08/28/20 00:00 IMPRESSION: 1. Widespread metastatic disease as above. 2. Large right and moderate left pleural effusions. Thoracentesis may be helpful. Soft Tissue Neck CT 08/28/20 00:00 IMPRESSION: No acute abnormality. No findings to correlate to the patient's reported dysphagia. Venous Doppler Study 08/28/20 00:00 IMPRESSION: No evidence of deep venous thrombosis in the visualized left lower extremity. Chest X-Ray 08/31/20 12:00 IMPRESSION: Stable appearance of the chest. Bilateral infiltrates. Left pleural effusion. Chest tube. Assessment and Plan - Diagnosis (1) Intractable pain Is this a current diagnosis for this admission?: Yes Plan: Much improved. Complaining of severe pain to left sacrum, groins, anterior proximal left lower extremity pain. 08/22/2020. CT abdomen pelvis positive for extensive metastasis. 08/23/2020. MRI lumbar spine new low T1 signal metastatic lesions within the L2, L3 and L4 vertebral bodies. 2 infiltrative left-sided retroperitoneal paraspinal mass/adenopathy from the level of L2-L3 to L4-L5 does not involve the psoas musculature. Severe left-sided hydronephrosis Continue fentanyl patch; dose increased to 75 mg/24hr today.. Oral Dilaudid 5 mg every 6 hours as needed. Breakthrough Dilaudid 0.5 mg IV every 6 hours as needed Dexamethasone for nerve compression. D2 of palliative radiation therapy Oncology on board. Recommendations noted. Non-opiate regiment escalated; lidoderm patches, gabapentin, tylenol, and toradol Nonpharmocological interventions. (2) Metastatic cancer Qualifiers: Area of secondary neoplastic involvement: other site Qualified Code(s): C79.89 - Secondary malignant neoplasm of other specified sites Is this a current diagnosis for this admission?: Yes Plan: - likely from Prostate Cancer or from new unknown primary cancer - s/p biopsy of psoas mass awaiting result - patient also has malignant pleural effusion - patient currently getting palliative radiation mostly to help with pain - awaiting results of biopsy to plan course of treatment if appropriate and if patient is agreeable. - oncology following (3) Malignant pleural effusion Is this a current diagnosis for this admission?: Yes Plan: Pleural effusion cultures are negative at 24 hours. Cytology results showed metastatic carcinoma unknown primary Surgery was consulted. With a chest tube to water seal, 400 ml/24 hrs may need pleurx cath (4) Mass of psoas muscle Is this a current diagnosis for this admission?: Yes Plan: Biopsy completed; results pending. Primary management per Dr. Mercer. (5) Prostate cancer Is this a current diagnosis for this admission?: Yes Plan: Diagnosed in 2018. Status post Lupron injection and radiation. Psoas muscle biopsy completed; results pending. Primary plan per Oncology. (6) Acute kidney injury superimposed on CKD Is this a current diagnosis for this admission?: Yes Plan: Resolved. Prerenal due to low p.o. intake. Cautious volume decision guided by volume status. Monitor volume status and electrolytes, replace electrolytes as needed. Avoid nephrotoxic meds. (7) Acute laryngitis Is this a current diagnosis for this admission?: Yes Plan: Improved today. Denies pain. Does report difficulty swallowing. Noted to have lost his voice this morning. Slight lymphardenopathy on exam. FROM w/o pain CT Soft tissue neck did not show concerning mass/obstructions. COVID negative. Continue dexamethasone Encourage po fluids (8) Anxiety Is this a current diagnosis for this admission?: Yes Plan: Increased sedation w/ dilaudid and fentanyl use. Decrease xanax to 0.25 mg q8hp (9) Hydronephrosis Qualifiers: Hydronephrosis type: unspecified Qualified Code(s): N13.30 - Unspecified hydronephrosis Is this a current diagnosis for this admission?: Yes Plan: History of hydronephrosis status post left ureteral stent placement. MRI lumbar spine shows severe left-sided hydronephrosis Crea currently normal at 0.82. Monitor renal very function closely. Unfortunately no urology consult available at [facility]. (10) Hypertension Is this a current diagnosis for this admission?: Yes Plan: Acceptable blood pressures today. Euvolemic. Monitor vitals. HCTZ held due to hyponatremia (11) Leg edema, left Is this a current diagnosis for this admission?: Yes Plan: Improved. Possibly lymphatic return compression r/t malignancy. Vnous Doppler negative for SVT/DVT marlon Durand elevated - Time Time Spent with patient: 25-34 minutes Medications reviewed and adjusted accordingly: Yes Anticipated Discharge Disposition: Home with Home Health Anticipated Discharge Timeframe: tbd
[2020-08-31] MEDS: CARISOPRODOL 350 MG TABLET PO PRN (21:54)
[2020-08-31] MEDS: AMLODIPINE BESYLATE 10 MG TABLET PO SCH (21:55)
[2020-08-31] MEDS: TEMAZEPAM 7.5 MG CAPSULE PO PRN (21:55)
[2020-08-31] MEDS: VENLAFAXINE HCL 75 MG CAP.SR.24H PO SCH (21:57)
[2020-08-31] MEDS: PHARMACY COMMUNICATION ORDER MC SCH (21:58)
[2020-09-01] MEDS: HYDROMORPHONE HCL 2 MG TABLET PO PRN ×3 (01:25→17:58)
[2020-09-01] MEDS: ALPRAZOLAM 0.5 MG TABLET PO PRN (01:36)
[2020-09-01] MEDS: HYDROMORPHONE HCL INJ/PF 2 MG/ML AMPULE IV PRN ×4 (03:59→21:33)
[2020-09-01] MEDS: GABAPENTIN 100 MG CAPSULE PO SCH ×2 (06:19→14:09)
--- NOTE | 2020-09-01 08:42 | PDOC PROGRESS REPORT ---
Subjective Date:: 09/01/20 Subjective:: Patient complains today of pain and anxiety and that nurses are not giving him m eds on time. Nurses report that they found him taking extra Xanax from his home supply in addition to what he was receiving here. He has been able to tolerate radiation treatments. He has not had a BM for 3 days. Otherwise, he has a multitude of complaints, but mainly pain. Reason For Visit: INTRACTABLE PAIN,METASTATIC PROSTATE CANCER Physical Exam Vital Signs: Temp Pulse Resp BP Pulse Ox 98.5 F 102 H 16 141/90 H 98 08/31/20 23:21 08/31/20 23:21 08/31/20 23:21 09/01/20 03:51 08/31/20 23:21 Intake & Output 08/31/20 09/01/20 09/02/20 06:59 06:59 06:59 Intake Total 805 895 Output Total 1690 1300 100 Balance -885 -405 -100 Weight 81.9 kg 83 kg General appearance: PRESENT: no acute distress Head exam: PRESENT: normocephalic Respiratory exam: PRESENT: unlabored Extremities exam: ABSENT: pedal edema Neurological exam: PRESENT: alert, awake Psychiatric exam: PRESENT: appropriate affect Skin exam: PRESENT: normal color Results Laboratory Results: 08/31/20 04:44 08/31/20 04:44 Impressions: Abdomen/Pelvis CT 08/22/20 07:21 IMPRESSION: Interval development of innumerable pulmonary nodules, with large right and smaller left pleural effusions. Highly suspicious for diffuse metastatic disease. Marked increase in the left para aortic mass and adenopathy extending from the level of the left kidney to the pelvis. Extension into the left psoas muscle. Indwelling left ureteral stent with mild hydronephrosis. Lumbar Spine MRI 08/23/20 00:00 IMPRESSION: 1. New low T1 signal metastatic lesions within the L2, L3 and L4 vertebral bodies. 2. Infiltrative left-sided retroperitoneal paraspinal mass/adenopathy from the level of L2-L3 to L4-L5 that involves the psoas musculature and results in severe left-sided hydronephrosis. Guidance Needle Placement CT 08/25/20 00:00 IMPRESSION: Please see combined report for performance of procedure and radiologic supervision and interpretation. Muscle Biopsy CT 08/25/20 08:00 IMPRESSION: CT GUIDED BIOPSY OF THE LEFT RETROPERITONEAL MASS PERFORMED WITHOUT IMMEDIATE COMPLICATION. PATHOLOGY POSITIVE FOR MALIGNANCY WITH DEFINITIVE DIAGNOSIS PENDING. Chest CT 08/28/20 00:00 IMPRESSION: 1. Widespread metastatic disease as above. 2. Large right and moderate left pleural effusions. Thoracentesis may be helpful. Soft Tissue Neck CT 08/28/20 00:00 IMPRESSION: No acute abnormality. No findings to correlate to the patient's reported dysphagia. Venous Doppler Study 08/28/20 00:00 IMPRESSION: No evidence of deep venous thrombosis in the visualized left lower extremity. Chest X-Ray 08/31/20 12:00 IMPRESSION: Stable appearance of the chest. Bilateral infiltrates. Left pleural effusion. Chest tube. Assessment & Plan - Diagnosis (1) Intractable pain Is this a current diagnosis for this admission?: Yes Plan: It has been difficult to control, as he is either in too much pain, or too somnolent, perhaps due to the extra Xanax he was taking without our knowledge. Hopefully, this has now stopped and we will be able to make better adjustments. His Xanax is at 1/2 his home dose, as the duragesic has been slowly increased. I will increase both the Xanax and dialudid just a bit today and consider increasing the Duragesic again tomorrow. I have encouraged nurses to use ALL PRN pain meds, not just the IV dilaudid. He will continue radiation therapy. I will decrease the Dex as this may also be contributing to his anxiety. (2) Prostate cancer Is this a current diagnosis for this admission?: Yes (3) Mass of psoas muscle Is this a current diagnosis for this admission?: Yes Plan: We again discussed further goals of care. He would like to consider Hospice/palliative care only at discharge. However, he has no one to stay with him at home, so this may be a problem. I have encouraged him to talk with family and friends to help arrange this. We also discussed SNF. He would prefer to be home. (4) Pleural effusion Is this a current diagnosis for this admission?: Yes Plan: As per Surgery. - Time Time Spent with patient: 15-24 minutes
[2020-09-01] MEDS: ALPRAZOLAM 0.5 MG TABLET PO SCH ×3 (08:45→21:34)
[2020-09-01] MEDS: CARISOPRODOL 350 MG TABLET PO PRN ×2 (08:45→17:58)
[2020-09-01] MEDS ORDERED: POLYETHYLENE GLYCOL 3350 POWDER 17 GM/1 PACKET PO ONE (08:46)
[2020-09-01] MEDS: LISINOPRIL 10 MG TABLET PO SCH (10:19)
[2020-09-01] MEDS: DOCUSATE SODIUM 100 MG CAPSULE PO SCH ×2 (10:20→17:58)
[2020-09-01] MEDS: FENTANYL 75 MCG/HR PATCH.TD72 TD SCH (10:20)
[2020-09-01] MEDS: FAMOTIDINE 20 MG TABLET PO SCH ×2 (10:20→21:34)
[2020-09-01] MEDS: LIDOCAINE 5% (700 MG) TRANSDERMAL ADH..PATCH TP SCH (10:37)
[2020-09-01 10:41] LABS: ALBUMIN 2.7 g/dL (3.5-5.0); ALKALINE PHOSPHATASE 114 U/L (38-126); ANION GAP 5 (5-19); ASPARTATE AMINO TRANSFERASE 35 U/L (17-59); BILIRUBIN,DIRECT 0.3 mg/dL (0.0-0.4); BILIRUBIN,TOTAL 0.4 mg/dL (0.2-1.3); BLOOD UREA NITROGEN 28 mg/dL (7-20); CALCIUM 7.6 mg/dL (8.4-10.2); CARBON DIOXIDE 33 mmol/L (22-30); CHLORIDE 90 mmol/L (98-107); GLUCOSE 131 mg/dL (75-110); POTASSIUM 4.3 mmol/L (3.6-5.0); TOTAL PROTEIN 5.2 g/dL (6.3-8.2)
[2020-09-01] MEDS: ONDANSETRON HCL INJ/PF 4 MG/2 ML SDV IV PRN (14:20)
--- NOTE | 2020-09-01 16:36 | PDOC PROGRESS REPORT ---
Subjective Date:: 09/01/20 Subjective:: 08/31/20 Patient was seen and examined at bedside. The patient is a 60 year old g entleman with history of prostate cancer who was admitted 08/22/20 due to increasing pain. MRI spine showed new low T1 signal metastatic lesions within the L2-L3 and L4 vertebral bodies. Infiltrative left-sided retroperitoneal paraspinal mass from the level of L2-L3 to L4-L5 that involves the psoas muscle and resultant severe left-sided hydronephrosis. Patient underwent biopsy August 24, 2020. Pathology results still pending. Chest CT done on August 28, 2020 showed large right-sided pleural effusion and moderate left-sided pleural effusion. Surgery was consulted who placed a chest tube on his right side for drainage of pleural fluid. Cytology report of pleural fluid showed metastatic carcinoma. Patient was started on palliative radiation. Patient was started on fentanyl patch and Dilaudid p.o. and IV to control his pain. We are cutting back on his Xanax since we are increasing his pain medications to prevent deep sedation. However according to the nurse she found his bottle of Xanax beside him and was taking his own medications despite orders of cutting down doses. Patient initially refused to give him his bottles but eventually did. Before giving the bottle to the nurses he took 1.5 mg dose of his Xanax. 09/02/20 Patient was seen and examined at bedside. He appears much more alert and awake today, pain is stable at 3/5. Patient is agreeable to transition to hospic e however he does not have anyone to help him at home if he goes home with hospice. I am not sure if he qualifies for in-patient hospice. Per Dr. Trinh note, he still has a few radiation treatment scheduled. Currently on Fentanyl 75 and dilaudid 5 mg PO q4hp and IV dilaudid 0.5 mg IV q6hp. Miralax ordered for opioid induced constipation. Will consult discharge planning. Reason For Visit: INTRACTABLE PAIN,METASTATIC PROSTATE CANCER Physical Exam Vital Signs: Temp Pulse Resp BP Pulse Ox 98.3 F 100 17 136/85 H 97 09/01/20 12:22 09/01/20 12:22 09/01/20 12:22 09/01/20 12:22 09/01/20 12:22 Intake & Output 08/31/20 09/01/20 09/02/20 06:59 06:59 06:59 Intake Total 805 895 462 Output Total 2640 1300 550 Balance -885 -405 -88 Weight 81.9 kg 83 kg 81.4 kg General appearance: PRESENT: cooperative, mild distress, other - weak looking Head exam: PRESENT: atraumatic, normocephalic Eye exam: PRESENT: EOMI, PERRLA Mouth exam: PRESENT: moist Neck exam: PRESENT: full ROM Respiratory exam: PRESENT: clear to auscultation joana, symmetrical, unlabored Cardiovascular exam: PRESENT: RRR, +S1, +S2 Pulses: PRESENT: +2 pedal pulses bilateral GI/Abdominal exam: PRESENT: normal bowel sounds, soft. ABSENT: rebound, tenderness Extremities exam: PRESENT: full ROM Musculoskeletal exam: PRESENT: full ROM Neurological exam: PRESENT: alert, awake, oriented to person, oriented to place, oriented to time, oriented to situation Psychiatric exam: PRESENT: normal mood Skin exam: PRESENT: normal color Results Laboratory Results: 08/31/20 04:44 09/01/20 09:35 09/01/20 09:35 Sodium 128.1 L Potassium 4.3 Chloride 90 L Carbon Dioxide 33 H Anion Gap 5 BUN 28 H Creatinine 0.78 Est GFR ( Amer) > 60 Glucose 131 H Calcium 7.6 L Total Bilirubin 0.4 AST 35 Alkaline Phosphatase 114 Total Protein 5.2 L Albumin 2.7 L 08/28/20 22:45 Pleural Fluid - Right Pleural Effusion Gram Stain - Final 08/28/20 22:45 Pleural Fluid - Right Pleural Effusion Body Fluid Culture - Final NO AEROBIC OR ANAEROBIC ORGANISMS RECOVERED Impressions: Abdomen/Pelvis CT 08/22/20 07:21 IMPRESSION: Interval development of innumerable pulmonary nodules, with large right and smaller left pleural effusions. Highly suspicious for diffuse metastatic disease. Marked increase in the left para aortic mass and adenopathy extending from the level of the left kidney to the pelvis. Extension into the left psoas muscle. Indwelling left ureteral stent with mild hydronephrosis. Lumbar Spine MRI 08/23/20 00:00 IMPRESSION: 1. New low T1 signal metastatic lesions within the L2, L3 and L4 vertebral bodies. 2. Infiltrative left-sided retroperitoneal paraspinal mass/adenopathy from the level of L2-L3 to L4-L5 that involves the psoas musculature and results in severe left-sided hydronephrosis. Guidance Needle Placement CT 08/25/20 00:00 IMPRESSION: Please see combined report for performance of procedure and radi ologic supervision and interpretation. Muscle Biopsy CT 08/25/20 08:00 IMPRESSION: CT GUIDED BIOPSY OF THE LEFT RETROPERITONEAL MASS PERFORMED WITHOUT IMMEDIATE COMPLICATION. PATHOLOGY POSITIVE FOR MALIGNANCY WITH DEFINITIVE DIAGNOSIS PENDING. Chest CT 08/28/20 00:00 IMPRESSION: 1. Widespread metastatic disease as above. 2. Large right and moderate left pleural effusions. Thoracentesis may be helpful. Soft Tissue Neck CT 08/28/20 00:00 IMPRESSION: No acute abnormality. No findings to correlate to the patient's reported dysphagia. Venous Doppler Study 08/28/20 00:00 IMPRESSION: No evidence of deep venous thrombosis in the visualized left lower extremity. Chest X-Ray 08/31/20 12:00 IMPRESSION: Stable appearance of the chest. Bilateral infiltrates. Left pleural effusion. Chest tube. Assessment and Plan - Diagnosis (1) Intractable pain Is this a current diagnosis for this admission?: Yes Plan: Much improved. Complaining of severe pain to left sacrum, groins, anterior proximal left lower extremity pain. 08/22/2020. CT abdomen pelvis positive for extensive metastasis. 08/23/2020. MRI lumbar spine new low T1 signal metastatic lesions within the L2, L3 and L4 vertebral bodies. 2 infiltrative left-sided retroperitoneal paraspinal mass/adenopathy from the level of L2-L3 to L4-L5 does not involve the psoas musculature. Severe left-sided hydronephrosis Continue fentanyl patch; dose increased to 75 mg/24hr today.. Oral Dilaudid 5 mg every 4 hours as needed. Breakthrough Dilaudid 0.5 mg IV every 6 hours as needed Dexamethasone for nerve compression. D2 of palliative radiation therapy Oncology on board. Recommendations noted. Non-opiate regiment escalated; lidoderm patches, gabapentin, tylenol, and donis dol Nonpharmocological interventions. (2) Metastatic cancer Qualifiers: Area of secondary neoplastic involvement: other site Qualified Code(s): C79.89 - Secondary malignant neoplasm of other specified sites Is this a current diagnosis for this admission?: Yes Plan: - likely from Prostate Cancer or from new unknown primary cancer - s/p biopsy of psoas mass showed malignant neoplasm - patient also has malignant pleural effusion - patient currently getting palliative radiation mostly to help with pain - upon discussion with Dr. Mercer, the patient has decided to transition to hospice however since he lives alone home hospice can be challenging unless he can find someone to help him at home. I am unsure if he will qualify for in patient hospice. - oncology following (3) Malignant pleural effusion Is this a current diagnosis for this admission?: Yes Plan: Pleural effusion cultures are negative at 24 hours. Cytology results showed metastatic carcinoma unknown primary Surgery was consulted. With a chest tube to water seal, 400 ml/24 hrs may need pleurx cath (4) Mass of psoas muscle Is this a current diagnosis for this admission?: Yes Plan: Biopsy completed; showed malignant neoplasm Primary management per Dr. Mercer. (5) Prostate cancer Is this a current diagnosis for this admission?: Yes Plan: Diagnosed in 2018. Status post Lupron injection and radiation. Psoas muscle biopsy completed; showed malignant neoplasm Primary plan per Oncology. (6) Acute kidney injury superimposed on CKD Is this a current diagnosis for this admission?: Yes Plan: Resolved. Prerenal due to low p.o. intake. Cautious volume decision guided by volume status. Monitor volume status and electrolytes, replace electrolytes as needed. Avoid nephrotoxic meds. (7) Acute laryngitis Is this a current diagnosis for this admission?: Yes Plan: Improved today. Denies pain. Does report difficulty swallowing. Noted to have lost his voice this morning. Slight lymphardenopathy on exam. FROM w/o pain CT Soft tissue neck did not show concerning mass/obstructions. COVID negative. Continue dexamethasone Encourage po fluids (8) Anxiety Is this a current diagnosis for this admission?: Yes Plan: Increased sedation w/ dilaudid and fentanyl use. Decrease xanax to 0.25 mg q8hp (9) Hydronephrosis Qualifiers: Hydronephrosis type: unspecified Qualified Code(s): N13.30 - Unspecified hydronephrosis Is this a current diagnosis for this admission?: Yes Plan: History of hydronephrosis status post left ureteral stent placement. MRI lumbar spine shows severe left-sided hydronephrosis Crea currently normal at 0.82. Monitor renal very function closely. Unfortunately no urology consult available at [facility]. (10) Hypertension Is this a current diagnosis for this admission?: Yes Plan: Acceptable blood pressures today. Euvolemic. Monitor vitals. HCTZ held due to hyponatremia (11) Leg edema, left Is this a current diagnosis for this admission?: Yes Plan: Improved. Possibly lymphatic return compression r/t malignancy. Vnous Doppler negative for SVT/DVT BETY james, keep elevated (12) Hyponatremia Is this a current diagnosis for this admission?: Yes Plan: - Na 128 - not on IV fluids, no on diuretics appears euvolemic - gabapentin and effexor stopped - ddx SIADH from malignancy - Urine and serum Osm sent to investigate - Time Time Spent with patient: 25-34 minutes Medications reviewed and adjusted accordingly: Yes Anticipated Discharge Disposition: Home with Hospice Anticipated Discharge Timeframe: tbd
--- NOTE | 2020-09-01 16:40 | PDOC PROGRESS REPORT ---
Subjective Date:: 09/01/20 Subjective:: 60-year-old male with a history of prostate cancer. He has a new right-sided pl eural effusion that was drained with a chest tube due to respiratory distress. Today, he reports no shortness of breath. He does report some discomfort at the chest tube site, but reports that it is "tolerable". He does report fatigue and malaise, but denies dizziness, nausea, vomiting, abdominal pain. Reason For Visit: INTRACTABLE PAIN,METASTATIC PROSTATE CANCER Physical Exam Vital Signs: Temp Pulse Resp BP Pulse Ox 98.3 F 100 17 136/85 H 97 09/01/20 12:22 09/01/20 12:22 09/01/20 12:22 09/01/20 12:22 09/01/20 12:22 Intake & Output 08/31/20 09/01/20 09/02/20 06:59 06:59 06:59 Intake Total 805 895 462 Output Total 1690 1300 550 Balance -885 -405 -88 Weight 81.9 kg 83 kg 81.4 kg Exam: General appearance: PRESENT: cooperative Head exam: PRESENT: atraumatic Eye exam: ABSENT: scleral icterus Mouth exam: PRESENT: moist, neck supple Neck exam: ABSENT: meningismus, tenderness, thyromegaly, tracheal deviation Respiratory exam: PRESENT: unlabored, other - chest tube to water seal. 200cc serous fluid out in 24 hrs. ABSENT: tachypnea Cardiovascular exam: ABSENT: tachycardia GI/Abdominal exam: PRESENT: soft. ABSENT: tenderness Rectal exam: PRESENT: deferred Extremities exam: ABSENT: clubbing Musculoskeletal exam: ABSENT: deformity Neurological exam: PRESENT: alert, awake, oriented to person, oriented to place, oriented to time Psychiatric exam: ABSENT: agitated, anxious Focused psych exam: ABSENT: delusional Skin exam: ABSENT: cyanosis, erythema, jaundice Results Laboratory Results: 08/31/20 04:44 09/01/20 09:35 09/01/20 09:35 Sodium 128.1 L Potassium 4.3 Chloride 90 L Carbon Dioxide 33 H Anion Gap 5 BUN 28 H Creatinine 0.78 Est GFR ( Amer) > 60 Glucose 131 H Calcium 7.6 L Total Bilirubin 0.4 AST 35 Alkaline Phosphatase 114 Total Protein 5.2 L Albumin 2.7 L 08/28/20 22:45 Pleural Fluid - Right Pleural Effusion Gram Stain - Final 08/28/20 22:45 Pleural Fluid - Right Pleural Effusion Body Fluid Culture - Final NO AEROBIC OR ANAEROBIC ORGANISMS RECOVERED Impressions: Abdomen/Pelvis CT 08/22/20 07:21 IMPRESSION: Interval development of innumerable pulmonary nodules, with large right and smaller left pleural effusions. Highly suspicious for diffuse metastatic disease. Marked increase in the left para aortic mass and adenopathy extending from the level of the left kidney to the pelvis. Extension into the left psoas muscle. Indwelling left ureteral stent with mild hydronephrosis. Lumbar Spine MRI 08/23/20 00:00 IMPRESSION: 1. New low T1 signal metastatic lesions within the L2, L3 and L4 vertebral bodies. 2. Infiltrative left-sided retroperitoneal paraspinal mass/adenopathy from the level of L2-L3 to L4-L5 that involves the psoas musculature and results in severe left-sided hydronephrosis. Guidance Needle Placement CT 08/25/20 00:00 IMPRESSION: Please see combined report for performance of procedure and radiologic supervision and interpretation. Muscle Biopsy CT 08/25/20 08:00 IMPRESSION: CT GUIDED BIOPSY OF THE LEFT RETROPERITONEAL MASS PERFORMED WITHOUT IMMEDIATE COMPLICATION. PATHOLOGY POSITIVE FOR MALIGNANCY WITH DEFINITIVE DIAGNOSIS PENDING. Chest CT 08/28/20 00:00 IMPRESSION: 1. Widespread metastatic disease as above. 2. Large right and moderate left pleural effusions. Thoracentesis may be helpful. Soft Tissue Neck CT 08/28/20 00:00 IMPRESSION: No acute abnormality. No findings to correlate to the patient's reported dysphagia. Venous Doppler Study 08/28/20 00:00 IMPRESSION: No evidence of deep venous thrombosis in the visualized left lower extremity. Chest X-Ray 08/31/20 12:00 IMPRESSION: Stable appearance of the chest. Bilateral infiltrates. Left pleural effusion. Chest tube. Assessment & Plan - Diagnosis (1) Malignant pleural effusion Is this a current diagnosis for this admission?: Yes - Time Anticipated Discharge Disposition: unknown Anticipated Discharge Timeframe: unknown - Plan Summary Plan Summary: 60-year-old male with a pleural effusion, very likely malignant in nature. Cytology shows metastatic carcinoma. Oncology is following. The chest tube appears to be adequately draining the thoracic cavity. There was 200cc of pleural fluid out overnight. The pt has been trying to decide his next steps in treatment (Hospice vs more aggressive steps). I have given him several options related to management of his chest tube. He will need to decide "for" or "against" hospice first, then further planning for the chest tube can be determined. Surgery will continue to follow with you.
[2020-09-01] MEDS: PHARMACY COMMUNICATION ORDER MC SCH (21:34)
[2020-09-01] MEDS: AMLODIPINE BESYLATE 10 MG TABLET PO SCH (21:34)
[2020-09-01] MEDS: TEMAZEPAM 7.5 MG CAPSULE PO PRN (21:34)
[2020-09-02] MEDS: HYDROMORPHONE HCL 2 MG TABLET PO PRN ×4 (01:45→21:46)
[2020-09-02] MEDS: ALPRAZOLAM 0.5 MG TABLET PO SCH ×4 (02:17→21:46)
[2020-09-02] MEDS: KETOROLAC TROMETHAMINE INJ/PF 30 MG/1 ML SDV IV PRN (06:00)
[2020-09-02] MEDS: PROMETHAZINE HCL INJ 25 MG/1 ML VIAL IV PRN (06:00)
[2020-09-02 06:36] LABS: ALBUMIN 2.7 g/dL (3.5-5.0); ALKALINE PHOSPHATASE 125 U/L (38-126); ASPARTATE AMINO TRANSFERASE 45 U/L (17-59); BILIRUBIN,DIRECT 0.3 mg/dL (0.0-0.4); BILIRUBIN,TOTAL 0.6 mg/dL (0.2-1.3); BLOOD UREA NITROGEN 29 mg/dL (7-20); CALCIUM 7.6 mg/dL (8.4-10.2); GLUCOSE 139 mg/dL (75-110); POTASSIUM 4.2 mmol/L (3.6-5.0); TOTAL PROTEIN 5.2 g/dL (6.3-8.2)
[2020-09-02] MEDS: HYDROMORPHONE HCL INJ/PF 2 MG/ML AMPULE IV PRN ×2 (06:37→14:11)
[2020-09-02 06:43] LABS: CARBON DIOXIDE 34 mmol/L (22-30); CHLORIDE 89 mmol/L (98-107)
[2020-09-02 06:51] LABS: ANION GAP 5 (5-19)
--- NOTE | 2020-09-02 07:24 | PDOC PROGRESS REPORT ---
Subjective Date:: 09/02/20 Subjective:: Patient is much more comfortable today. He had a BM this morning. He does not like the Ensure, but is drinking gatoraid. Pain and anxiety are much better today. He is trying to decide on options for the chest tube. He has elected Hospice on discharge, but is still trying to arrange to have family come to stay with him at home during this time. Reason For Visit: INTRACTABLE PAIN,METASTATIC PROSTATE CANCER Physical Exam Vital Signs: Temp Pulse Resp BP Pulse Ox 98.6 F 100 20 130/72 H 95 09/01/20 23:26 09/01/20 23:26 09/01/20 23:26 09/01/20 23:26 09/01/20 23:26 Intake & Output 09/01/20 09/02/20 09/03/20 06:59 06:59 06:59 Intake Total 895 512 Output Total 1300 550 Balance -405 -38 Weight 83 kg 81.4 kg General appearance: PRESENT: no acute distress Head exam: PRESENT: normocephalic Eye exam: PRESENT: EOMI Mouth exam: PRESENT: moist Respiratory exam: PRESENT: unlabored Neurological exam: PRESENT: alert, awake, oriented to person, oriented to place, oriented to time, oriented to situation Psychiatric exam: PRESENT: appropriate affect Skin exam: PRESENT: normal color Results Laboratory Results: 08/31/20 04:44 09/02/20 05:55 09/01/20 09/01/20 09/01/20 09:35 09:35 20:00 Sodium 128.1 L Potassium 4.3 Chloride 90 L Carbon Dioxide 33 H Anion Gap 5 BUN 28 H Creatinine 0.78 Est GFR ( Amer) > 60 Glucose 131 H Serum Osmolality 279 Calcium 7.6 L Total Bilirubin 0.4 AST 35 Alkaline Phosphatase 114 Total Protein 5.2 L Albumin 2.7 L Urine Osmolality 440 09/02/20 05:55 Sodium 128.4 L Potassium 4.2 Chloride 89 L Carbon Dioxide 34 H Anion Gap 5 BUN 29 H Creatinine 0.93 Est GFR ( Amer) > 60 Glucose 139 H Serum Osmolality Calcium 7.6 L Total Bilirubin 0.6 AST 45 Alkaline Phosphatase 125 Total Protein 5.2 L Albumin 2.7 L Urine Osmolality 08/28/20 22:45 Pleural Fluid - Right Pleural Effusion Gram Stain - Final 08/28/20 22:45 Pleural Fluid - Right Pleural Effusion Body Fluid Culture - Final NO AEROBIC OR ANAEROBIC ORGANISMS RECOVERED Impressions: Abdomen/Pelvis CT 08/22/20 07:21 IMPRESSION: Interval development of innumerable pulmonary nodules, with large right and smaller left pleural effusions. Highly suspicious for diffuse metastatic disease. Marked increase in the left para aortic mass and adenopathy extending from the l evel of the left kidney to the pelvis. Extension into the left psoas muscle. Indwelling left ureteral stent with mild hydronephrosis. Lumbar Spine MRI 08/23/20 00:00 IMPRESSION: 1. New low T1 signal metastatic lesions within the L2, L3 and L4 vertebral bodies. 2. Infiltrative left-sided retroperitoneal paraspinal mass/adenopathy from the level of L2-L3 to L4-L5 that involves the psoas musculature and results in severe left-sided hydronephrosis. Guidance Needle Placement CT 08/25/20 00:00 IMPRESSION: Please see combined report for performance of procedure and radiologic supervision and interpretation. Muscle Biopsy CT 08/25/20 08:00 IMPRESSION: CT GUIDED BIOPSY OF THE LEFT RETROPERITONEAL MASS PERFORMED WITHOUT IMMEDIATE COMPLICATION. PATHOLOGY POSITIVE FOR MALIGNANCY WITH DEFINITIVE DIAGNOSIS PENDING. Chest CT 08/28/20 00:00 IMPRESSION: 1. Widespread metastatic disease as above. 2. Large right and moderate left pleural effusions. Thoracentesis may be helpful. Soft Tissue Neck CT 08/28/20 00:00 IMPRESSION: No acute abnormality. No findings to correlate to the patient's reported dysphagia. Venous Doppler Study 08/28/20 00:00 IMPRESSION: No evidence of deep venous thrombosis in the visualized left lower extremity. Chest X-Ray 08/31/20 12:00 IMPRESSION: Stable appearance of the chest. Bilateral infiltrates. Left pleural effusion. Chest tube. Assessment & Plan - Diagnosis (1) Intractable pain Is this a current diagnosis for this admission?: Yes Plan: Improving with the radiation treatments. Continue current pain medications without changes today. His Dex was decreased yesterday. Will continue to try to taper this dose, about every 3 days. (2) Prostate cancer Is this a current diagnosis for this admission?: Yes (3) Mass of psoas muscle Is this a current diagnosis for this admission?: Yes Plan: Although this does NOT appear to be metastatic prostate cancer, it is a VERY aggressive carcinoma and patient does not wish to pursue aggressive treatment at this time. He is agreeable to Hospice services on discharge and is trying to make arrangements to help facilitate this at home. Because of his desire for Hospice, I have not done full staging with MRI brain. (4) Pleural effusion Is this a current diagnosis for this admission?: Yes Plan: As per Surgery. Cytology was positive for malignancy, but no aggressive treatment will be sought. - Time Time Spent with patient: 15-24 minutes - Plan Summary Plan Summary: He still has a few more radiation treatments, but when these are finished and he has a chest tube that can be managed at home and pain is controlled with oral meds, will plan DC home with Hospice. Discharge planning has been consulted.
[2020-09-02] MEDS: DEXAMETHASONE 4 MG TABLET PO SCH (07:58)
[2020-09-02] MEDS ORDERED: NORMAL SALINE 1000 ML 500 ML IV ONE (08:47)
[2020-09-02] MEDS: LISINOPRIL 10 MG TABLET PO SCH (09:45)
[2020-09-02] MEDS: DOCUSATE SODIUM 100 MG CAPSULE PO SCH ×2 (09:46→19:09)
[2020-09-02] MEDS: CARISOPRODOL 350 MG TABLET PO PRN ×2 (09:46→18:15)
[2020-09-02] MEDS: FAMOTIDINE 20 MG TABLET PO SCH ×2 (09:46→21:45)
[2020-09-02] MEDS: LIDOCAINE 5% (700 MG) TRANSDERMAL ADH..PATCH TP SCH (12:02)
[2020-09-02 13:28] LABS: BLOOD UREA NITROGEN 30 mg/dL (7-20); CALCIUM 7.4 mg/dL (8.4-10.2); CARBON DIOXIDE 34 mmol/L (22-30); CHLORIDE 91 mmol/L (98-107); GLUCOSE 142 mg/dL (75-110); POTASSIUM 4.3 mmol/L (3.6-5.0)
[2020-09-02 13:34] LABS: ANION GAP 3 (5-19)
--- NOTE | 2020-09-02 14:09 | PDOC PROGRESS REPORT ---
Subjective Date:: 09/02/20 Subjective:: 60-year-old male with a history of prostate cancer. He has a right-sided pleura l effusion that was drained with a chest tube due to respiratory distress. Today, he reports no shortness of breath. He does report some discomfort at the chest tube site, but reports that it is "tolerable". He does report fatigue and malaise, but denies dizziness, nausea, vomiting, abdominal pain. Reason For Visit: INTRACTABLE PAIN,METASTATIC PROSTATE CANCER Physical Exam Vital Signs: Temp Pulse Resp BP Pulse Ox 98.2 F 113 H 16 118/77 97 09/02/20 08:38 09/02/20 08:38 09/02/20 08:38 09/02/20 08:38 09/02/20 08:38 Intake & Output 09/01/20 09/02/20 09/03/20 06:59 06:59 06:59 Intake Total 895 512 700 Output Total 1300 550 150 Balance -405 -38 550 Weight 83 kg 81.4 kg 81.4 kg Exam: General appearance: PRESENT: cooperative Head exam: PRESENT: atraumatic Eye exam: ABSENT: scleral icterus Mouth exam: PRESENT: moist, neck supple Neck exam: ABSENT: meningismus, tenderness, thyromegaly, tracheal deviation Respiratory exam: PRESENT: unlabored, other - chest tube to water seal. ~300cc serous fluid out in 24 hrs. ABSENT: tachypnea Cardiovascular exam: ABSENT: tachycardia GI/Abdominal exam: PRESENT: soft. ABSENT: tenderness Rectal exam: PRESENT: deferred Extremities exam: ABSENT: clubbing Musculoskeletal exam: ABSENT: deformity Neurological exam: PRESENT: alert, awake, oriented to person, oriented to place, oriented to time Psychiatric exam: ABSENT: agitated, anxious Focused psych exam: ABSENT: delusional Skin exam: ABSENT: cyanosis, erythema, jaundice Results Laboratory Results: 08/31/20 04:44 09/02/20 12:56 09/01/20 09/01/20 09/02/20 09:35 20:00 05:55 Sodium 128.4 L Potassium 4.2 Chloride 89 L Carbon Dioxide 34 H Anion Gap 5 BUN 29 H Creatinine 0.93 Est GFR ( Amer) > 60 Est GFR (Non-Af Amer) Glucose 139 H Serum Osmolality 279 Calcium 7.6 L Total Bilirubin 0.6 AST 45 Alkaline Phosphatase 125 Total Protein 5.2 L Albumin 2.7 L Urine Osmolality 440 09/02/20 09/02/20 12:13 12:56 Sodium Cancelled 127.8 L Potassium Cancelled 4.3 Chloride Cancelled 91 L Carbon Dioxide Cancelled 34 H Anion Gap Cancelled 3 L BUN Cancelled 30 H Creatinine Cancelled 0.90 Est GFR ( Amer) Cancelled > 60 Est GFR (Non-Af Amer) Cancelled Glucose Cancelled 142 H Serum Osmolality Calcium Cancelled 7.4 L Total Bilirubin AST Alkaline Phosphatase Total Protein Albumin Urine Osmolality 08/28/20 22:45 Pleural Fluid - Right Pleural Effusion Gram Stain - Final 08/28/20 22:45 Pleural Fluid - Right Pleural Effusion Body Fluid Culture - Final NO AEROBIC OR ANAEROBIC ORGANISMS RECOVERED Impressions: Abdomen/Pelvis CT 08/22/20 07:21 IMPRESSION: Interval development of innumerable pulmonary nodules, with large right and smaller left pleural effusions. Highly suspicious for diffuse metastatic disease. Marked increase in the left para aortic mass and adenopathy extending from the level of the left kidney to the pelvis. Extension into the left psoas muscle. Indwelling left ureteral stent with mild hydronephrosis. Lumbar Spine MRI 08/23/20 00:00 IMPRESSION: 1. New low T1 signal metastatic lesions within the L2, L3 and L4 vertebral bodies. 2. Infiltrative left-sided retroperitoneal paraspinal mass/adenopathy from the level of L2-L3 to L4-L5 that involves the psoas musculature and results in severe left-sided hydronephrosis. Guidance Needle Placement CT 08/25/20 00:00 IMPRESSION: Please see combined report for performance of procedure and radiologic supervision and interpretation. Muscle Biopsy CT 08/25/20 08:00 IMPRESSION: CT GUIDED BIOPSY OF THE LEFT RETROPERITONEAL MASS PERFORMED WITHOUT IMMEDIATE COMPLICATION. PATHOLOGY POSITIVE FOR MALIGNANCY WITH DEFINITIVE DIAGNOSIS PENDING. Chest CT 08/28/20 00:00 IMPRESSION: 1. Widespread metastatic disease as above. 2. Large right and moderate left pleural effusions. Thoracentesis may be helpful. Soft Tissue Neck CT 08/28/20 00:00 IMPRESSION: No acute abnormality. No findings to correlate to the patient's reported dysphagia. Venous Doppler Study 08/28/20 00:00 IMPRESSION: No evidence of deep venous thrombosis in the visualized left lower extremity. Chest X-Ray 08/31/20 12:00 IMPRESSION: Stable appearance of the chest. Bilateral infiltrates. Left pleural effusion. Chest tube. Assessment & Plan - Diagnosis (1) Malignant pleural effusion Is this a current diagnosis for this admission?: Yes - Time Anticipated Discharge Disposition: unknown Anticipated Discharge Timeframe: unknown - Plan Summary Plan Summary: 60-year-old male with a pleural effusion. Cytology shows metastatic carcinoma. Oncology is following. The chest tube appears to be adequately draining the thoracic cavity. There was ~300cc of pleural fluid out overnight. I have given him several options related to management of his chest tube. He has decided to pursue Pleur-x catheter placement. To OR tomorrow for catheter. NPO after midnight. Surgery will continue to follow with you.
--- NOTE | 2020-09-02 19:19 | PDOC PROGRESS REPORT ---
Subjective Date:: 09/02/20 Subjective:: 08/31/20 Patient was seen and examined at bedside. The patient is a 60 year old g entleman with history of prostate cancer who was admitted 08/22/20 due to increasing pain. MRI spine showed new low T1 signal metastatic lesions within the L2-L3 and L4 vertebral bodies. Infiltrative left-sided retroperitoneal paraspinal mass from the level of L2-L3 to L4-L5 that involves the psoas muscle and resultant severe left-sided hydronephrosis. Patient underwent biopsy August 24, 2020. Pathology results still pending. Chest CT done on August 28, 2020 showed large right-sided pleural effusion and moderate left-sided pleural effusion. Surgery was consulted who placed a chest tube on his right side for drainage of pleural fluid. Cytology report of pleural fluid showed metastatic carcinoma. Patient was started on palliative radiation. Patient was started on fentanyl patch and Dilaudid p.o. and IV to control his pain. We are cutting back on his Xanax since we are increasing his pain medications to prevent deep sedation. However according to the nurse she found his bottle of Xanax beside him and was taking his own medications despite orders of cutting down doses. Patient initially refused to give him his bottles but eventually did. Before giving the bottle to the nurses he took 1.5 mg dose of his Xanax. 09/01/20 Patient was seen and examined at bedside. He appears much more alert and awake today, pain is stable at 3/5. Patient is agreeable to transition to hospic e however he does not have anyone to help him at home if he goes home with hospice. I am not sure if he qualifies for in-patient hospice. Per Dr. Trinh note, he still has a few radiation treatment scheduled. Currently on Fentanyl 75 and dilaudid 5 mg PO q4hp and IV dilaudid 0.5 mg IV q6hp. Miralax ordered for opioid induced constipation. Will consult discharge planning. 09/02/20 Patient was seen and examined at bedside. He looks comfortable and stated that his pain is manageable. he has agreed to go to home hospice and is trying to find friends and relatives that can help him at home. Plan for pleurx catheter placement tomorrow. Pleural fluid showed metastatic cancer. He also has one more radiation scheduled tomorrow. Reason For Visit: INTRACTABLE PAIN,METASTATIC PROSTATE CANCER Physical Exam Vital Signs: Temp Pulse Resp BP Pulse Ox 98.1 F 104 H 19 117/99 H 95 09/02/20 15:48 09/02/20 15:48 09/02/20 15:48 09/02/20 15:48 09/02/20 15:48 Intake & Output 09/01/20 09/02/20 09/03/20 06:59 06:59 06:59 Intake Total 895 512 700 Output Total 1300 550 150 Balance -405 -38 550 Weight 83 kg 81.4 kg 81.4 kg General appearance: PRESENT: cooperative, mild distress Head exam: PRESENT: atraumatic, normocephalic Eye exam: PRESENT: EOMI, PERRLA Mouth exam: PRESENT: moist Neck exam: PRESENT: full ROM Respiratory exam: PRESENT: decreased breath sounds - right more than left, symmetrical, unlabored Cardiovascular exam: PRESENT: RRR, +S1, +S2 Pulses: PRESENT: +2 pedal pulses bilateral GI/Abdominal exam: PRESENT: normal bowel sounds, soft. ABSENT: rebound, tenderness Extremities exam: PRESENT: full ROM Musculoskeletal exam: PRESENT: full ROM Neurological exam: PRESENT: alert, awake, oriented to person, oriented to place, oriented to time, oriented to situation Psychiatric exam: PRESENT: normal mood Skin exam: PRESENT: normal color Results Laboratory Results: 08/31/20 04:44 09/02/20 12:56 09/01/20 09/02/20 09/02/20 20:00 05:55 12:13 Sodium 128.4 L Cancelled Potassium 4.2 Cancelled Chloride 89 L Cancelled Carbon Dioxide 34 H Cancelled Anion Gap 5 Cancelled BUN 29 H Cancelled Creatinine 0.93 Cancelled Est GFR ( Amer) > 60 Cancelled Est GFR (Non-Af Amer) Cancelled Glucose 139 H Cancelled Calcium 7.6 L Cancelled Total Bilirubin 0.6 AST 45 Alkaline Phosphatase 125 Total Protein 5.2 L Albumin 2.7 L Urine Osmolality 440 09/02/20 12:56 Sodium 127.8 L Potassium 4.3 Chloride 91 L Carbon Dioxide 34 H Anion Gap 3 L BUN 30 H Creatinine 0.90 Est GFR ( Amer) > 60 Est GFR (Non-Af Amer) Glucose 142 H Calcium 7.4 L Total Bilirubin AST Alkaline Phosphatase Total Protein Albumin Urine Osmolality Impressions: Abdomen/Pelvis CT 08/22/20 07:21 IMPRESSION: Interval development of innumerable pulmonary nodules, with large right and smaller left pleural effusions. Highly suspicious for diffuse metastatic disease. Marked increase in the left para aortic mass and adenopathy extending from the level of the left kidney to the pelvis. Extension into the left psoas muscle. Indwelling left ureteral stent with mild hydronephrosis. Lumbar Spine MRI 08/23/20 00:00 IMPRESSION: 1. New low T1 signal metastatic lesions within the L2, L3 and L4 vertebral bodies. 2. Infiltrative left-sided retroperitoneal paraspinal mass/adenopathy from the level of L2-L3 to L4-L5 that involves the psoas musculature and results in severe left-sided hydronephrosis. Guidance Needle Placement CT 08/25/20 00:00 IMPRESSION: Please see combined report for performance of procedure and radiologic supervision and interpretation. Muscle Biopsy CT 08/25/20 08:00 IMPRESSION: CT GUIDED BIOPSY OF THE LEFT RETROPERITONEAL MASS PERFORMED WITHOUT IMMEDIATE COMPLICATION. PATHOLOGY POSITIVE FOR MALIGNANCY WITH DEFINITIVE DIAGNOSIS PENDING. Chest CT 08/28/20 00:00 IMPRESSION: 1. Widespread metastatic disease as above. 2. Large right and moderate left pleural effusions. Thoracentesis may be helpful. Soft Tissue Neck CT 08/28/20 00:00 IMPRESSION: No acute abnormality. No findings to correlate to the patient's reported dysphagia. Venous Doppler Study 08/28/20 00:00 IMPRESSION: No evidence of deep venous thrombosis in the visualized left lower extremity. Chest X-Ray 08/31/20 12:00 IMPRESSION: Stable appearance of the chest. Bilateral infiltrates. Left pleu ral effusion. Chest tube. Assessment and Plan - Diagnosis (1) Intractable pain Is this a current diagnosis for this admission?: Yes Plan: Much improved. Complaining of severe pain to left sacrum, groins, anterior proximal left lower extremity pain. 08/22/2020. CT abdomen pelvis positive for extensive metastasis. 08/23/2020. MRI lumbar spine new low T1 signal metastatic lesions within the L2, L3 and L4 vertebral bodies. 2 infiltrative left-sided retroperitoneal paraspinal mass/adenopathy from the level of L2-L3 to L4-L5 does not involve the psoas musculature. Severe left-sided hydronephrosis Continue fentanyl patch; dose increased to 75 mg/24hr Oral Dilaudid 5 mg every 4 hours as needed. Breakthrough Dilaudid 0.5 mg IV every 6 hours as needed Dexamethasone for nerve compression. D3 of palliative radiation therapy Oncology on board. Recommendations noted. Non-opiate regiment escalated; lidoderm patches, gabapentin, tylenol, and toradol Nonpharmocological interventions. Patient to transition to hospice (2) Metastatic cancer Qualifiers: Area of secondary neoplastic involvement: other site Qualified Code(s): C79.89 - Secondary malignant neoplasm of other specified sites Is this a current diagnosis for this admission?: Yes Plan: - likely from Prostate Cancer or from new unknown primary cancer - s/p biopsy of psoas mass showed malignant neoplasm - patient also has malignant pleural effusion - patient currently getting palliative radiation mostly to help with pain - upon discussion with Dr. Mercer, the patient has decided to transition to hospice however since he lives alone home hospice can be challenging unless he can find someone to help him at home. I am unsure if he will qualify for in patient hospice. - oncology following (3) Malignant pleural effusion Is this a current diagnosis for this admission?: Yes Plan: Pleural effusion cultures are negative at 24 hours. Cytology results showed metastatic carcinoma unknown primary Surgery was consulted. With a chest tube to water seal, 400 ml/24 hrs for Pleurx catheter tomorrow (4) Mass of psoas muscle Is this a current diagnosis for this admission?: Yes Plan: Biopsy completed; showed malignant neoplasm Primary management per Dr. Mercer. (5) Prostate cancer Is this a current diagnosis for this admission?: Yes Plan: Diagnosed in 2018. Status post Lupron injection and radiation. Psoas muscle biopsy completed; showed malignant neoplasm Primary plan per Oncology. (6) Acute kidney injury superimposed on CKD Is this a current diagnosis for this admission?: Yes Plan: Resolved. Prerenal due to low p.o. intake. Cautious volume decision guided by volume status. Monitor volume status and electrolytes, replace electrolytes as needed. Avoid nephrotoxic meds. (7) Acute laryngitis Is this a current diagnosis for this admission?: Yes Plan: Improved today. Denies pain. Does report difficulty swallowing. Noted to have lost his voice this morning. Slight lymphardenopathy on exam. FROM w/o pain CT Soft tissue neck did not show concerning mass/obstructions. COVID negative. Continue dexamethasone Encourage po fluids (8) Anxiety Is this a current diagnosis for this admission?: Yes Plan: Increased sedation w/ dilaudid and fentanyl use. Decrease xanax to 0.25 mg q8hp (9) Hydronephrosis Qualifiers: Hydronephrosis type: unspecified Qualified Code(s): N13.30 - Unspecified hydronephrosis Is this a current diagnosis for this admission?: Yes Plan: History of hydronephrosis status post left ureteral stent placement. MRI lumbar spine shows severe left-sided hydronephrosis Crea currently normal at 0.82. Monitor renal very function closely. Unfortunately no urology consult available at [facility]. (10) Hypertension Is this a current diagnosis for this admission?: Yes Plan: Acceptable blood pressures today. Euvolemic. Monitor vitals. HCTZ held due to hyponatremia (11) Leg edema, left Is this a current diagnosis for this admission?: Yes Plan: Improved. Possibly lymphatic return compression r/t malignancy. Vnous Doppler negative for SVT/DVT BETY james, keep elevated (12) Hyponatremia Is this a current diagnosis for this admission?: Yes Plan: - Na 128 - not on IV fluids, no on diuretics appears euvolemic - gabapentin and effexor stopped - ddx SIADH from malignancy - Urine and serum Osm sent to investigate - Time Time Spent with patient: 25-34 minutes Medications reviewed and adjusted accordingly: Yes Anticipated Discharge Disposition: Home with Hospice Anticipated Discharge Timeframe: within 48 hours
[2020-09-02] MEDS: AMLODIPINE BESYLATE 10 MG TABLET PO SCH (21:45)
[2020-09-02] MEDS: TEMAZEPAM 7.5 MG CAPSULE PO PRN (21:46)
[2020-09-02] MEDS: PHARMACY COMMUNICATION ORDER MC SCH (21:48)
[2020-09-03] MEDS: HYDROMORPHONE HCL INJ/PF 2 MG/ML AMPULE IV PRN ×3 (00:33→22:57)
[2020-09-03] MEDS: ALPRAZOLAM 0.5 MG TABLET PO SCH ×4 (03:54→21:26)
[2020-09-03] MEDS: KETOROLAC TROMETHAMINE INJ/PF 30 MG/1 ML SDV IV PRN (05:39)
[2020-09-03 05:44] LABS: ALBUMIN 2.5 g/dL (3.5-5.0); ALKALINE PHOSPHATASE 137 U/L (38-126); ASPARTATE AMINO TRANSFERASE 41 U/L (17-59); BILIRUBIN,DIRECT 0.3 mg/dL (0.0-0.4); BILIRUBIN,TOTAL 0.5 mg/dL (0.2-1.3); BLOOD UREA NITROGEN 25 mg/dL (7-20); CALCIUM 7.5 mg/dL (8.4-10.2); GLUCOSE 109 mg/dL (75-110); POTASSIUM 4.1 mmol/L (3.6-5.0); TOTAL PROTEIN 4.8 g/dL (6.3-8.2)
[2020-09-03 05:50] LABS: CARBON DIOXIDE 37 mmol/L (22-30); CHLORIDE 92 mmol/L (98-107)
[2020-09-03 05:51] LABS: ANION GAP 2 (5-19)
[2020-09-03] MEDS ORDERED: KETAMINE HCL INJ 500 MG/10 ML VIAL ONE (06:30)
[2020-09-03] MEDS ORDERED: EPHEDRINE SULFATE INJ 50 MG/1 ML AMPULE ONE (06:30)
[2020-09-03] MEDS ORDERED: FENTANYL CITRATE INJ/PF 100 MCG/2 ML AMPUL ONE (06:30)
[2020-09-03] MEDS ORDERED: MIDAZOLAM 2 MG/2 ML INJ ONE (06:30)
[2020-09-03] MEDS ORDERED: PROPOFOL INJ 200 MG/20 ML VIAL IV ONE (06:31)
[2020-09-03] MEDS ORDERED: DEXAMETHASONE SOD PHOSPHATE INJ 4 MG/1 ML VIAL ONE (06:31)
[2020-09-03] MEDS ORDERED: ONDANSETRON HCL INJ/PF 4 MG/2 ML SDV ONE (06:31)
[2020-09-03] MEDS ORDERED: DEXMEDETOMIDINE INJ 80 MCG/20 ML VIAL IV ONE (06:31)
[2020-09-03] MEDS ORDERED: VASOPRESSIN INJ 20 UNIT/1 ML VIAL ONE (06:32)
[2020-09-03] MEDS ORDERED: HYDROMORPHONE HCL INJ/PF 2 MG/ML AMPULE ONE (06:45)
--- NOTE | 2020-09-03 08:39 | RADIOLOGY REPORT (SQ) ---
EXAM DESCRIPTION: CHEST SINGLE VIEW IMAGES COMPLETED DATE/TIME: 09/03/2020 7:52 am REASON FOR STUDY: CHEST TUBE COMPARISON: 08/31/2020 EXAM PARAMETERS: NUMBER OF VIEWS: One view. TECHNIQUE: Single frontal radiographic view of the chest acquired. RADIATION DOSE: NA LIMITATIONS: None. FINDINGS: LUNGS AND PLEURA: Stable pulmonary exam demonstrating diffuse airspace opacities with a sm all left-sided pleural effusion. No significant right-sided pleural effusion. No pneumothorax. MEDIASTINUM AND HILAR STRUCTURES: No masses. Contour normal. HEART AND VASCULAR STRUCTURES: Heart normal in size. Normal vasculature. BONES: No acute findings. HARDWARE: Right hemithorax chest tubes appear stable in position. OTHER: No other significant finding. IMPRESSION: 1. Stable pulmonary exam demonstrating bilateral airspace opacities and a small left-si ded pleural effusion. 2. Stable right hemithorax chest tube. TECHNICAL DOCUMENTATION: JOB ID: [id number] 2010 [employer]- All Rights Reserved Reading location - IP/workstation name: [email or web address]
--- NOTE | 2020-09-03 09:12 | Operative Report ---
Nonrecallable Operative Report DATE OF SURGERY: 09/03/20 PREOPERATIVE DIAGNOSIS: metastatic prostrate cancer, pleural effusion, POSTOPERATIVE DIAGNOSIS: same OPERATION: pleurx catheter insertion SURGEON: LEISA LANDRUM ANESTHESIA: LMAC TISSUE REMOVED OR ALTERED: none COMPLICATIONS: none ESTIMATED BLOOD LOSS: 0 INTRAOPERATIVE FINDINGS: see note PROCEDURE: Patient was brought to the operating awake alert in stable condition placed on the operating table in a left lateral decubitus position given IV sedation by anesthesia. The right chest was prepped and draped in usual sterile fashion. After appropriate timeout and site verification the procedure commenced. The previous chest tube was removed cutting the suture and removing the chest tube. A point was picked on the right anterior chest chest wall at the posterior axillary line over T5-6 interspace. Skin was anesthetized with 1% lidocaine plain. The 11 blade was used to make a small incision and then using a tonsil clamp the incision was dilated and dissected down to the sixth rib. Once we identified the sixth rib with the tip of the tonsil clamp we used the 16-gauge needle catheter placed into the chest itself. The needle was removed and then through the catheter replaced the wire. It was a J-wire. It was confirmed in the chest cavity using fluoroscopy. Then a point was picked over the anterior chest wall about the level of the costal margin and a small incision was made after anesthetizing the skin with 1% lidocaine plain. Using the tunnel maker supplied with a kit attached to the Pleurx catheter was tunneled from that point to the posterior axillary line where the wire was entering the chest cavity. The dilators and the tear-away introducer dilator combination was placed over the wire into the chest cavity the wire was removed the catheter was then placed through the tear-away introducer which was torn away. Fluoroscopy confirmed the catheter to lie within the chest cavity itself. The catheter was suctioned there was only minimal amount of fluid within the chest cavity. Once the catheter was confirmed in good position the cuff of the catheter was at the exit site on the anterior chest wall covered by skin. The catheter was affixed to the chest wall with a [id number] placed 2-0 nylon suture. The small stick site at the posterior axillary line was closed with 0 Vicryl. A sterile dressing was then applied over the previous chest chest tube incision over Xeroform gauz. A transparent dressing was then placed over the 3 incisions which completed the procedure. Estimated blood loss for the procedure was negligible. The patient was then transferred recovery in stable condition chest x-ray is pending
--- NOTE | 2020-09-03 09:47 | RADIOLOGY REPORT (SQ) ---
EXAM DESCRIPTION: CHEST SINGLE VIEW IMAGES COMPLETED DATE/TIME: 09/03/2020 9:32 am REASON FOR STUDY: POST CATH PLACEMENT COMPARISON: AP view of the chest from 09/03/2020. EXAM PARAMETERS: NUMBER OF VIEWS: One view. TECHNIQUE: An AP view of the chest was obtained. RADIATION DOSE: NA LIMITATIONS: None. FINDINGS: LUNGS AND PLEURA: Status post replacement of a previous large-bore chest tube for a tunnel ed pleural drainage catheter ; the proximal side hole of the catheter projects outside of the pleural space. The right apical pneumothorax has increased in size from 2.1 cm on the prior radiograph to 2 .4 cm. The diffuse nodular parenchymal opacities throughout both lungs are unchanged. The pleural o pacities in the left hemithorax have increased. MEDIASTINUM AND HILAR STRUCTURES: Stable mediastinal and hilar contours. HEART AND VASCULAR STRUCTURES: Stable cardiac silhouette. BONES: No acute findings. HARDWARE: As above. OTHER: No other finding. IMPRESSION: 1. Status post replacement of a previous large-bore chest tube for a tunneled pleural dr ainage catheter ; the proximal side hole of the catheter projects outside of the pleural space. 2. The right apical pneumothorax has increased in size from 2.1 cm on the prior radiograph to 2.4 cm. 3. The pleural opacities in the left hemithorax have increased. TECHNICAL DOCUMENTATION: JOB ID: [id number] 2010 [employer]- All Rights Reserved Reading location - IP/workstation name: [email or web address]
--- NOTE | 2020-09-03 10:17 | RADIOLOGY REPORT (SQ) ---
EXAM DESCRIPTION: CHEST SINGLE VIEW; NO CHG FLUORO IMAGES COMPLETED DATE/TIME: 09/03/2020 10:04 am REASON FOR STUDY: PLEUREX CATHETER PLCMT RIGHT SIDE ASSISTED WITH FLUORO IN OR COMPARISON: None. FLUOROSCOPY TIME: 0.7 minutes. 2 images submitted to PACS. TECHNIQUE: Intra-operative images of the chest were obtained during placement of a right-sided Pleur X catheter. LIMITATIONS: None. FINDINGS: Refer to the separate operative report. IMPRESSION: IMAGE(S) OBTAINED DURING PROCEDURE. COMMENT: Quality ID [id number]: Final reports for procedures using fluoroscopy that document radiation exp osure indices, or exposure time and number of fluorographic images (if radiation exposure indices are not available) Please consult full operative report of the attending physician for description of the procedure. TECHNICAL DOCUMENTATION: JOB ID: [id number] 2010 [employer]- All Rights Reserved Reading location - IP/workstation name: [email or web address]
--- NOTE | 2020-09-03 10:17 | RADIOLOGY REPORT (SQ) ---
EXAM DESCRIPTION: CHEST SINGLE VIEW; NO CHG FLUORO IMAGES COMPLETED DATE/TIME: 09/03/2020 10:04 am REASON FOR STUDY: PLEUREX CATHETER PLCMT RIGHT SIDE ASSISTED WITH FLUORO IN OR COMPARISON: None. FLUOROSCOPY TIME: 0.7 minutes. 2 images submitted to PACS. TECHNIQUE: Intra-operative images of the chest were obtained during placement of a right-sided Pleur X catheter. LIMITATIONS: None. FINDINGS: Refer to the separate operative report. IMPRESSION: IMAGE(S) OBTAINED DURING PROCEDURE. COMMENT: Quality ID [id number]: Final reports for procedures using fluoroscopy that document radiation exp osure indices, or exposure time and number of fluorographic images (if radiation exposure indices are not available) Please consult full operative report of the attending physician for description of the procedure. TECHNICAL DOCUMENTATION: JOB ID: [id number] 2010 [employer]- All Rights Reserved Reading location - IP/workstation name: [email or web address]
[2020-09-03] MEDS: CARISOPRODOL 350 MG TABLET PO PRN ×2 (10:33→15:33)
[2020-09-03] MEDS: DEXAMETHASONE 4 MG TABLET PO SCH (10:34)
[2020-09-03] MEDS: DOCUSATE SODIUM 100 MG CAPSULE PO SCH ×2 (10:35→17:28)
[2020-09-03] MEDS: FAMOTIDINE 20 MG TABLET PO SCH ×2 (10:35→21:27)
[2020-09-03] MEDS: LIDOCAINE 5% (700 MG) TRANSDERMAL ADH..PATCH TP SCH (10:35)
[2020-09-03] MEDS: LISINOPRIL 10 MG TABLET PO SCH (10:39)
[2020-09-03] MEDS ORDERED: PHENYLEPHRINE HCL INJ/PF 10 MG/1 ML SDV ONE (11:39)
[2020-09-03] MEDS ORDERED: GLYCOPYRROLATE 1 MG/5 ML VIAL ONE (11:39)
[2020-09-03] MEDS: HYDROMORPHONE HCL 2 MG TABLET PO PRN ×2 (15:33→21:23)
--- NOTE | 2020-09-03 16:54 | PDOC PROGRESS REPORT ---
Subjective Date:: 09/03/20 Subjective:: 08/31/20 Patient was seen and examined at bedside. The patient is a 60 year old g entleman with history of prostate cancer who was admitted 08/22/20 due to increasing pain. MRI spine showed new low T1 signal metastatic lesions within the L2-L3 and L4 vertebral bodies. Infiltrative left-sided retroperitoneal paraspinal mass from the level of L2-L3 to L4-L5 that involves the psoas muscle and resultant severe left-sided hydronephrosis. Patient underwent biopsy August 24, 2020. Pathology results still pending. Chest CT done on August 28, 2020 showed large right-sided pleural effusion and moderate left-sided pleural effusion. Surgery was consulted who placed a chest tube on his right side for drainage of pleural fluid. Cytology report of pleural fluid showed metastatic carcinoma. Patient was started on palliative radiation. Patient was started on fentanyl patch and Dilaudid p.o. and IV to control his pain. We are cutting back on his Xanax since we are increasing his pain medications to prevent deep sedation. However according to the nurse she found his bottle of Xanax beside him and was taking his own medications despite orders of cutting down doses. Patient initially refused to give him his bottles but eventually did. Before giving the bottle to the nurses he took 1.5 mg dose of his Xanax. 09/01/20 Patient was seen and examined at bedside. He appears much more alert and awake today, pain is stable at 3/5. Patient is agreeable to transition to hospic e however he does not have anyone to help him at home if he goes home with hospice. I am not sure if he qualifies for in-patient hospice. Per Dr. Trinh note, he still has a few radiation treatment scheduled. Currently on Fentanyl 75 and dilaudid 5 mg PO q4hp and IV dilaudid 0.5 mg IV q6hp. Miralax ordered for opioid induced constipation. Will consult discharge planning. 09/02/20 Patient was seen and examined at bedside. He looks comfortable and stated that his pain is manageable. he has agreed to go to home hospice and is trying to find friends and relatives that can help him at home. Plan for pleurx catheter placement tomorrow. Pleural fluid showed metastatic cancer. He also has one more radiation scheduled tomorrow. 09/03/20 The patient was seen and examined at bedside. Pain control much better yesterday compared to today. He got a pleurx catheter today and is also scheduled for his last palliative radiation. According to the patient the earliest a friend can come to help him when he goes home is either sunday or sunday. Awaiting hospice to be set up, otherwise he is ready for discharge Reason For Visit: INTRACTABLE PAIN,METASTATIC PROSTATE CANCER Physical Exam Vital Signs: Temp Pulse Resp BP Pulse Ox 97.6 F 83 17 113/76 94 09/03/20 10:11 09/03/20 10:11 09/03/20 10:11 09/03/20 10:11 09/03/20 10:11 Intake & Output 09/02/20 09/03/20 09/04/20 06:59 06:59 06:59 Intake Total 512 950 736 Output Total 550 900 310 Balance -38 50 426 Weight 81.4 kg 78.3 kg General appearance: PRESENT: cooperative, mild distress, thin Head exam: PRESENT: atraumatic, normocephalic Eye exam: PRESENT: EOMI, PERRLA Mouth exam: PRESENT: moist Neck exam: PRESENT: full ROM Respiratory exam: PRESENT: decreased breath sounds, symmetrical, unlabored Cardiovascular exam: PRESENT: RRR, +S1, +S2 Pulses: PRESENT: +2 pedal pulses bilateral GI/Abdominal exam: PRESENT: normal bowel sounds, soft. ABSENT: rebound, tenderness Extremities exam: PRESENT: full ROM Musculoskeletal exam: PRESENT: full ROM Neurological exam: PRESENT: alert, awake, oriented to person, oriented to place, oriented to time, oriented to situation Psychiatric exam: PRESENT: normal mood Skin exam: PRESENT: normal color Results Laboratory Results: 08/31/20 04:44 09/03/20 04:57 09/03/20 04:57 Sodium 131.3 L Potassium 4.1 Chloride 92 L Carbon Dioxide 37 H Anion Gap 2 L BUN 25 H Creatinine 0.92 Est GFR ( Amer) > 60 Glucose 109 Calcium 7.5 L Total Bilirubin 0.5 AST 41 Alkaline Phosphatase 137 H Total Protein 4.8 L Albumin 2.5 L Impressions: Abdomen/Pelvis CT 08/22/20 07:21 IMPRESSION: Interval development of innumerable pulmonary nodules, with large right and smaller left pleural effusions. Highly suspicious for diffuse metastatic disease. Marked increase in the left para aortic mass and adenopathy extending from the level of the left kidney to the pelvis. Extension into the left psoas muscle. Indwelling left ureteral stent with mild hydronephrosis. Lumbar Spine MRI 08/23/20 00:00 IMPRESSION: 1. New low T1 signal metastatic lesions within the L2, L3 and L4 vertebral bodies. 2. Infiltrative left-sided retroperitoneal paraspinal mass/adenopathy from the level of L2-L3 to L4-L5 that involves the psoas musculature and results in severe left-sided hydronephrosis. Guidance Needle Placement CT 08/25/20 00:00 IMPRESSION: Please see combined report for performance of procedure and radiologic supervision and interpretation. Muscle Biopsy CT 08/25/20 08:00 IMPRESSION: CT GUIDED BIOPSY OF THE LEFT RETROPERITONEAL MASS PERFORMED WITHOUT IMMEDIATE COMPLICATION. PATHOLOGY POSITIVE FOR MALIGNANCY WITH DEFINITIVE DIAGNOSIS PENDING. Chest CT 08/28/20 00:00 IMPRESSION: 1. Widespread metastatic disease as above. 2. Large right and moderate left pleural effusions. Thoracentesis may be helpful. Soft Tissue Neck CT 08/28/20 00:00 IMPRESSION: No acute abnormality. No findings to correlate to the patient's reported dysphagia. Venous Doppler Study 08/28/20 00:00 IMPRESSION: No evidence of deep venous thrombosis in the visualized left lower extremity. Chest X-Ray 09/03/20 00:00 IMPRESSION: IMAGE(S) OBTAINED DURING PROCEDURE. Fluoroscopy 09/03/20 00:00 IMPRESSION: IMAGE(S) OBTAINED DURING PROCEDURE. Assessment and Plan - Diagnosis (1) Intractable pain Is this a current diagnosis for this admission?: Yes Plan: Much improved. Complaining of severe pain to left sacrum, groins, anterior proximal left lower extremity pain. 08/22/2020. CT abdomen pelvis positive for extensive metastasis. 08/23/2020. MRI lumbar spine new low T1 signal metastatic lesions within the L2, L3 and L4 vertebral bodies. 2 infiltrative left-sided retroperitoneal paraspinal mass/adenopathy from the level of L2-L3 to L4-L5 does not involve the psoas musculature. Severe left-sided hydronephrosis Continue fentanyl patch; dose increased to 75 mg/24hr Oral Dilaudid 5 mg every 4 hours as needed. Breakthrough Dilaudid 0.5 mg IV every 6 hours as needed Dexamethasone for nerve compression. last day of palliative chemo Oncology on board. Recommendations noted. Non-opiate regiment escalated; lidoderm patches, gabapentin, tylenol, and t oradol Nonpharmocological interventions. Patient to transition to hospice (2) Metastatic cancer Qualifiers: Area of secondary neoplastic involvement: other site Qualified Code(s): C79.89 - Secondary malignant neoplasm of other specified sites Is this a current diagnosis for this admission?: Yes Plan: - likely from Prostate Cancer or from new unknown primary cancer - s/p biopsy of psoas mass showed malignant neoplasm - patient also has malignant pleural effusion - patient currently getting palliative radiation mostly to help with pain - upon discussion with Dr. Mercer, the patient has decided to transition to hospice however since he lives alone home hospice can be challenging unless he can find someone to help him at home. I am unsure if he will qualify for in [facility]. - oncology following (3) Malignant pleural effusion Is this a current diagnosis for this admission?: Yes Plan: Pleural effusion cultures are negative at 24 hours. Cytology results showed metastatic carcinoma unknown primary Surgery was consulted. With a chest tube to water seal, 100 ml/24 hrs S/p Pleurx catheter placed (4) Mass of psoas muscle Is this a current diagnosis for this admission?: Yes Plan: Biopsy completed; showed malignant neoplasm patient to transition to hospice. (5) Prostate cancer Is this a current diagnosis for this admission?: Yes Plan: Diagnosed in 2018. Status post Lupron injection and radiation. Psoas muscle biopsy completed; showed malignant neoplasm Primary plan per Oncology. (6) Acute kidney injury superimposed on CKD Is this a current diagnosis for this admission?: Yes Plan: Resolved. Prerenal due to low p.o. intake. Monitor volume status and electrolytes, replace electrolytes as needed. Avoid nephrotoxic meds. (7) Acute laryngitis Is this a current diagnosis for this admission?: Yes Plan: Improved today. Denies pain. Does report difficulty swallowing. Noted to have lost his voice this morning. Slight lymphardenopathy on exam. FROM w/o pain CT Soft tissue neck did not show concerning mass/obstructions. COVID negative. Continue dexamethasone Encourage po fluids (8) Anxiety Is this a current diagnosis for this admission?: Yes Plan: Increased sedation w/ dilaudid and fentanyl use. Decrease xanax to 0.25 mg q8hp (9) Hydronephrosis Qualifiers: Hydronephrosis type: unspecified Qualified Code(s): N13.30 - Unspecified hydronephrosis Is this a current diagnosis for this admission?: Yes Plan: History of hydronephrosis status post left ureteral stent placement. MRI lumbar spine shows severe left-sided hydronephrosis Crea currently normal at 0.82. Monitor renal very function closely. Unfortunately no urology consult available at [facility]. (10) Hypertension Is this a current diagnosis for this admission?: Yes Plan: Acceptable blood pressures today. Euvolemic. Monitor vitals. HCTZ held due to hyponatremia (11) Leg edema, left Is this a current diagnosis for this admission?: Yes Plan: Improved. Possibly lymphatic return compression r/t malignancy. Vnous Doppler negative for SVT/DVT BETY james, keep elevated (12) Hyponatremia Is this a current diagnosis for this admission?: Yes Plan: - Na 128 - not on IV fluids, no on diuretics appears euvolemic - gabapentin and effexor stopped - ddx SIADH from malignancy - Urine and serum Osm sent to investigate - Time Time Spent with patient: 25-34 minutes Medications reviewed and adjusted accordingly: Yes Anticipated Discharge Disposition: Hospice Center Anticipated Discharge Timeframe: within 48 hours
[2020-09-03] MEDS: AMLODIPINE BESYLATE 10 MG TABLET PO SCH (21:27)
[2020-09-03] MEDS: PHARMACY COMMUNICATION ORDER MC SCH (21:27)
[2020-09-03] MEDS ORDERED: TEMAZEPAM 7.5 MG CAPSULE PO PRN (23:24)
[2020-09-04] MEDS: ALPRAZOLAM 0.5 MG TABLET PO SCH ×4 (03:23→21:12)
[2020-09-04] MEDS: HYDROMORPHONE HCL 2 MG TABLET PO PRN ×4 (03:24→20:10)
[2020-09-04 06:20] LABS: ALBUMIN 2.7 g/dL (3.5-5.0); ALKALINE PHOSPHATASE 174 U/L (38-126); ANION GAP 7 (5-19); ASPARTATE AMINO TRANSFERASE 42 U/L (17-59); BILIRUBIN,DIRECT 0.4 mg/dL (0.0-0.4); BILIRUBIN,TOTAL 0.4 mg/dL (0.2-1.3); BLOOD UREA NITROGEN 29 mg/dL (7-20); CALCIUM 7.8 mg/dL (8.4-10.2); CARBON DIOXIDE 33 mmol/L (22-30); CHLORIDE 92 mmol/L (98-107); GLUCOSE 112 mg/dL (75-110); POTASSIUM 4.4 mmol/L (3.6-5.0); TOTAL PROTEIN 5.3 g/dL (6.3-8.2)
[2020-09-04] MEDS: CARISOPRODOL 350 MG TABLET PO PRN ×2 (08:40→20:17)
[2020-09-04] MEDS: DEXAMETHASONE 4 MG TABLET PO SCH (08:40)
--- NOTE | 2020-09-04 09:35 | PDOC PROGRESS REPORT ---
Subjective Date:: 09/04/20 Subjective:: Patient doing better this morning, still with fairly considerable pain but better controlled. Discussed increasing fentanyl patch. Hospice arrangements being made possible discharge seems more likely on Sunday. Reason For Visit: INTRACTABLE PAIN,METASTATIC PROSTATE CANCER Physical Exam Vital Signs: Temp Pulse Resp BP Pulse Ox 97.6 F 107 H 18 112/78 93 09/04/20 08:35 09/04/20 03:26 09/04/20 03:26 09/04/20 03:26 09/04/20 03:26 Intake & Output 09/03/20 09/04/20 09/05/20 06:59 06:59 06:59 Intake Total 950 1156 Output Total 900 1760 Balance 50 -604 Weight 78.3 kg 78.3 kg General appearance: PRESENT: no acute distress, well-developed, well-nourished Head exam: PRESENT: atraumatic, normocephalic Eye exam: PRESENT: conjunctiva pink, EOMI, PERRLA. ABSENT: scleral icterus Ear exam: PRESENT: normal external ear exam Mouth exam: PRESENT: moist, tongue midline Neck exam: ABSENT: carotid bruit, JVD, lymphadenopathy, thyromegaly Respiratory exam: PRESENT: clear to auscultation joana. ABSENT: rales, rhonchi, wheezes Cardiovascular exam: PRESENT: RRR. ABSENT: diastolic murmur, rubs, systolic murmur Pulses: PRESENT: normal dorsalis pedis pul Vascular exam: PRESENT: normal capillary refill GI/Abdominal exam: PRESENT: normal bowel sounds, soft. ABSENT: distended, guarding, mass, organolmegaly, rebound, tenderness Rectal exam: PRESENT: deferred Extremities exam: PRESENT: full ROM. ABSENT: calf tenderness, clubbing, pedal edema Neurological exam: PRESENT: alert, awake, oriented to person, oriented to place, oriented to time, oriented to situation, CN II-XII grossly intact. ABSENT: motor sensory deficit Psychiatric exam: PRESENT: appropriate affect, normal mood. ABSENT: homicidal ideation, suicidal ideation Skin exam: PRESENT: dry, intact, warm. ABSENT: cyanosis, rash Results Laboratory Results: 08/31/20 04:44 09/04/20 05:10 09/04/20 05:10 Sodium 131.7 L Potassium 4.4 Chloride 92 L Carbon Dioxide 33 H Anion Gap 7 BUN 29 H Creatinine 0.98 Est GFR ( Amer) > 60 Glucose 112 H Calcium 7.8 L Total Bilirubin 0.4 AST 42 Alkaline Phosphatase 174 H Total Protein 5.3 L Albumin 2.7 L Impressions: Abdomen/Pelvis CT 08/22/20 07:21 IMPRESSION: Interval development of innumerable pulmonary nodules, with large right and smaller left pleural effusions. Highly suspicious for diffuse metastatic disease. Marked increase in the left para aortic mass and adenopathy extending from the level of the left kidney to the pelvis. Extension into the left psoas muscle. Indwelling left ureteral stent with mild hydronephrosis. Lumbar Spine MRI 08/23/20 00:00 IMPRESSION: 1. New low T1 signal metastatic lesions within the L2, L3 and L4 vertebral bodies. 2. Infiltrative left-sided retroperitoneal paraspinal mass/adenopathy from the level of L2-L3 to L4-L5 that involves the psoas musculature and results in severe left-sided hydronephrosis. Guidance Needle Placement CT 08/25/20 00:00 IMPRESSION: Please see combined report for performance of procedure and radiologic supervision and interpretation. Muscle Biopsy CT 08/25/20 08:00 IMPRESSION: CT GUIDED BIOPSY OF THE LEFT RETROPERITONEAL MASS PERFORMED WITHOUT IMMEDIATE COMPLICATION. PATHOLOGY POSITIVE FOR MALIGNANCY WITH DEFINITIVE DIAGNOSIS PENDING. Chest CT 08/28/20 00:00 IMPRESSION: 1. Widespread metastatic disease as above. 2. Large right and moderate left pleural effusions. Thoracentesis may be hel pful. Soft Tissue Neck CT 08/28/20 00:00 IMPRESSION: No acute abnormality. No findings to correlate to the patient's reported dysphagia. Venous Doppler Study 08/28/20 00:00 IMPRESSION: No evidence of deep venous thrombosis in the visualized left lower extremity. Chest X-Ray 09/03/20 00:00 IMPRESSION: IMAGE(S) OBTAINED DURING PROCEDURE. Fluoroscopy 09/03/20 00:00 IMPRESSION: IMAGE(S) OBTAINED DURING PROCEDURE. Assessment & Plan - Diagnosis (1) Prostate cancer Is this a current diagnosis for this admission?: Yes Plan: Patient being planned for hospice. Increased fentanyl patch. (2) Malignant pleural effusion Is this a current diagnosis for this admission?: Yes Plan: Wrote for patient to have drain every 2 days with 400 cc. (3) Intractable pain Is this a current diagnosis for this admission?: Yes Plan: Due to the cancer, increase fentanyl patch to 100 mcg every 72 hours. - Time Time Spent with patient: 35 or more minutes - Inpatient Certification Based on my medical assessment, after consideration of the patient's comorbidities, presenting symptoms, or acuity I expect that the services needed warrant INPATIENT care.: Yes I certify that my determination is in accordance with my understanding of Medicare's requirements for reasonable and necessary INPATIENT services [42 CFR 412.3e].: Yes Medical Necessity: Need for Pain Control
[2020-09-04] MEDS: FENTANYL 75 MCG/HR PATCH.TD72 TD SCH (10:12)
[2020-09-04] MEDS: LISINOPRIL 10 MG TABLET PO SCH (10:13)
[2020-09-04] MEDS: DOCUSATE SODIUM 100 MG CAPSULE PO SCH ×2 (10:13→16:53)
[2020-09-04] MEDS: FAMOTIDINE 20 MG TABLET PO SCH ×2 (10:13→21:12)
[2020-09-04] MEDS: LIDOCAINE 5% (700 MG) TRANSDERMAL ADH..PATCH TP SCH (10:13)
[2020-09-04] MEDS ORDERED: NORMAL SALINE 500 ML with OCTREOTIDE ACETATE 500 MCG IV PRN ×2 (11:16)
[2020-09-04] MEDS ORDERED: OCTREOTIDE ACETATE INJ/PF 100 MCG/1 ML SDV IV ONE (12:30)
[2020-09-04] MEDS ORDERED: FENTANYL 100 MCG/HR PATCH.TD72 TD SCH (13:30)
--- NOTE | 2020-09-04 14:48 | PDOC PROGRESS REPORT ---
Subjective Date:: 09/04/20 Subjective:: 08/31/20 Patient was seen and examined at bedside. The patient is a 60 year old g entleman with history of prostate cancer who was admitted 08/22/20 due to increasing pain. MRI spine showed new low T1 signal metastatic lesions within the L2-L3 and L4 vertebral bodies. Infiltrative left-sided retroperitoneal paraspinal mass from the level of L2-L3 to L4-L5 that involves the psoas muscle and resultant severe left-sided hydronephrosis. Patient underwent biopsy August 24, 2020. Pathology results still pending. Chest CT done on August 28, 2020 showed large right-sided pleural effusion and moderate left-sided pleural effusion. Surgery was consulted who placed a chest tube on his right side for drainage of pleural fluid. Cytology report of pleural fluid showed metastatic carcinoma. Patient was started on palliative radiation. Patient was started on fentanyl patch and Dilaudid p.o. and IV to control his pain. We are cutting back on his Xanax since we are increasing his pain medications to prevent deep sedation. However according to the nurse she found his bottle of Xanax beside him and was taking his own medications despite orders of cutting down doses. Patient initially refused to give him his bottles but eventually did. Before giving the bottle to the nurses he took 1.5 mg dose of his Xanax. 09/01/20 Patient was seen and examined at bedside. He appears much more alert and awake today, pain is stable at 3/5. Patient is agreeable to transition to hospice however he does not have anyone to help him at home if he goes home with hospice. I am not sure if he qualifies for in-patient hospice. Per Dr. Trinh note, he still has a few radiation treatment scheduled. Currently on Fentanyl 75 and dilaudid 5 mg PO q4hp and IV dilaudid 0.5 mg IV q6hp. Miralax ordered for opioid induced constipation. Will consult discharge planning. 09/02/20 Patient was seen and examined at bedside. He looks comfortable and stated that his pain is manageable. he has agreed to go to home hospice and is trying to find friends and relatives that can help him at home. Plan for pleurx catheter placement tomorrow. Pleural fluid showed metastatic cancer. He also has one more radiation scheduled tomorrow. 09/03/20 The patient was seen and examined at bedside. Pain control much better yesterday compared to today. He got a pleurx catheter today and is also scheduled for his last palliative radiation. According to the patient the earliest a friend can come to help him when he goes home is either sunday or sunday. Awaiting hospice to be set up, otherwise he is ready for discharge. 09/04/20 The patient was seen and examined at bedside. Appears comfortable today. Possibl e discharge to home hospice tomorrow after Pleurx drain. Fentanyl patch increased to [address] austin. No new concern per patient. Reason For Visit: INTRACTABLE PAIN,METASTATIC PROSTATE CANCER Physical Exam Vital Signs: Temp Pulse Resp BP Pulse Ox 97.9 F 114 H 18 106/75 94 09/04/20 11:17 09/04/20 11:17 09/04/20 11:17 09/04/20 11:17 09/04/20 11:17 Intake & Output 09/03/20 09/04/20 09/05/20 06:59 06:59 06:59 Intake Total 950 1156 Output Total 900 1760 Balance 50 -604 Weight 78.3 kg 78.3 kg General appearance: PRESENT: no acute distress, cooperative Head exam: PRESENT: atraumatic, normocephalic Eye exam: PRESENT: EOMI, PERRLA Mouth exam: PRESENT: moist Neck exam: PRESENT: full ROM Respiratory exam: PRESENT: decreased breath sounds, symmetrical, unlabored Cardiovascular exam: PRESENT: RRR, +S1, +S2 Pulses: PRESENT: +2 pedal pulses bilateral GI/Abdominal exam: PRESENT: normal bowel sounds, soft. ABSENT: rebound, ten derness Extremities exam: PRESENT: full ROM Musculoskeletal exam: PRESENT: full ROM Neurological exam: PRESENT: alert, awake, oriented to person, oriented to place, oriented to time, oriented to situation Psychiatric exam: PRESENT: normal mood Skin exam: PRESENT: normal color Results Laboratory Results: 08/31/20 04:44 09/04/20 05:10 09/04/20 05:10 Sodium 131.7 L Potassium 4.4 Chloride 92 L Carbon Dioxide 33 H Anion Gap 7 BUN 29 H Creatinine 0.98 Est GFR ( Amer) > 60 Glucose 112 H Calcium 7.8 L Total Bilirubin 0.4 AST 42 Alkaline Phosphatase 174 H Total Protein 5.3 L Albumin 2.7 L Impressions: Abdomen/Pelvis CT 08/22/20 07:21 IMPRESSION: Interval development of innumerable pulmonary nodules, with large right and smaller left pleural effusions. Highly suspicious for diffuse metastatic disease. Marked increase in the left para aortic mass and adenopathy extending from the level of the left kidney to the pelvis. Extension into the left psoas muscle. Indwelling left ureteral stent with mild hydronephrosis. Lumbar Spine MRI 08/23/20 00:00 IMPRESSION: 1. New low T1 signal metastatic lesions within the L2, L3 and L4 vertebral bodies. 2. Infiltrative left-sided retroperitoneal paraspinal mass/adenopathy from the level of L2-L3 to L4-L5 that involves the psoas musculature and results in severe left-sided hydronephrosis. Guidance Needle Placement CT 08/25/20 00:00 IMPRESSION: Please see combined report for performance of procedure and radiologic supervision and interpretation. Muscle Biopsy CT 08/25/20 08:00 IMPRESSION: CT GUIDED BIOPSY OF THE LEFT RETROPERITONEAL MASS PERFORMED WITHOUT IMMEDIATE COMPLICATION. PATHOLOGY POSITIVE FOR MALIGNANCY WITH DEFINITIVE DIAGNOSIS PENDING. Chest CT 08/28/20 00:00 IMPRESSION: 1. Widespread metastatic disease as above. 2. Large right and moderate left pleural effusions. Thoracentesis may be helpful. Soft Tissue Neck CT 08/28/20 00:00 IMPRESSION: No acute abnormality. No findings to correlate to the patient's reported dysphagia. Venous Doppler Study 08/28/20 00:00 IMPRESSION: No evidence of deep venous thrombosis in the visualized left lower extremity. Chest X-Ray 09/03/20 00:00 IMPRESSION: IMAGE(S) OBTAINED DURING PROCEDURE. Fluoroscopy 09/03/20 00:00 IMPRESSION: IMAGE(S) OBTAINED DURING PROCEDURE. Assessment and Plan - Diagnosis (1) Intractable pain Is this a current diagnosis for this admission?: Yes Plan: Much improved. Complaining of severe pain to left sacrum, groins, anterior proximal left lower extremity pain. 08/22/2020. CT abdomen pelvis positive for extensive metastasis. 08/23/2020. MRI lumbar spine new low T1 signal metastatic lesions within the L2, L3 and L4 vertebral bodies. 2 infiltrative left-sided retroperitoneal paraspinal mass/adenopathy from the level of L2-L3 to L4-L5 does not involve the psoas musculature. Severe left-sided hydronephrosis Continue fentanyl patch; dose increased to 100 mg/24hr Oral Dilaudid 5 mg every 4 hours as needed. Breakthrough Dilaudid 0.5 mg IV every 6 hours as needed Dexamethasone for nerve compression. completed palliative radiation Oncology on board. Recommendations noted. Non-opiate regiment escalated; lidoderm patches, gabapentin, tylenol, and toradol Nonpharmocological interventions. Patient to transition to hospice (2) Metastatic cancer Qualifiers: Area of secondary neoplastic involvement: other site Qualified Code(s): C79.89 - Secondary malignant neoplasm of other specified sites Is this a current diagnosis for this admission?: Yes Plan: - likely from Prostate Cancer or from new unknown primary cancer - s/p biopsy of psoas mass showed malignant neoplasm - patient also has malignant pleural effusion - patient currently getting palliative radiation mostly to help with pain - upon discussion with Dr. Mercer, the patient has decided to transition to hospice however since he lives alone home hospice can be challenging unless he can find someone to help him at home. I am unsure if he will qualify for in patient hospice. - oncology following (3) Malignant pleural effusion Is this a current diagnosis for this admission?: Yes Plan: Pleural effusion cultures are negative at 24 hours. Cytology results showed metastatic carcinoma unknown primary Surgery was consulted. With a chest tube to water seal, 100 ml/24 hrs S/p Pleurx catheter placed (4) Mass of psoas muscle Is this a current diagnosis for this admission?: Yes Plan: Biopsy completed; showed malignant neoplasm patient to transition to hospice. (5) Prostate cancer Is this a current diagnosis for this admission?: Yes Plan: Diagnosed in 2018. Status post Lupron injection and radiation. Psoas muscle biopsy completed; showed malignant neoplasm Primary plan per Oncology. (6) Acute kidney injury superimposed on CKD Is this a current diagnosis for this admission?: Yes Plan: Resolved. Prerenal due to low p.o. intake. Monitor volume status and electrolytes, replace electrolytes as needed. Avoid nephrotoxic meds. (7) Acute laryngitis Is this a current diagnosis for this admission?: Yes Plan: Improved today. Denies pain. Does report difficulty swallowing. Noted to have lost his voice this morning. Slight lymphardenopathy on exam. FROM w/o pain CT Soft tissue neck did not show concerning mass/obstructions. COVID negative. Continue dexamethasone Encourage po fluids (8) Anxiety Is this a current diagnosis for this admission?: Yes Plan: Increased sedation w/ dilaudid and fentanyl use. Decrease xanax to 0.25 mg q8hp (9) Hydronephrosis Qualifiers: Hydronephrosis type: unspecified Qualified Code(s): N13.30 - Unspecified hydronephrosis Is this a current diagnosis for this admission?: Yes Plan: History of hydronephrosis status post left ureteral stent placement. MRI lumbar spine shows severe left-sided hydronephrosis Crea currently normal at 0.82. Monitor renal very function closely. Unfortunately no urology consult available at [facility]. (10) Hypertension Is this a current diagnosis for this admission?: Yes Plan: Acceptable blood pressures today. Euvolemic. Monitor vitals. HCTZ held due to hyponatremia (11) Leg edema, left Is this a current diagnosis for this admission?: Yes Plan: Improved. Possibly lymphatic return compression r/t malignancy. Vnous Doppler negative for SVT/DVT BETY hose, keep elevated (12) Hyponatremia Is this a current diagnosis for this admission?: Yes Plan: - Na 128 - not on IV fluids, no on diuretics appears euvolemic - gabapentin and effexor stopped - ddx SIADH from malignancy - Urine and serum Osm sent to investigate - Plan Summary Summary: Transition to hospice - Time Time Spent with patient: 15-24 minutes Medications reviewed and adjusted accordingly: Yes Anticipated Discharge Disposition: Home with Hospice Anticipated Discharge Timeframe: within 48 hours
[2020-09-04] MEDS ORDERED: HYDROMORPHONE HCL INJ 2 MG/ML 20 ML MDV IV PRN (16:00)
[2020-09-04] MEDS: HYDROMORPHONE HCL INJ/PF 2 MG/ML AMPULE IV PRN ×2 (16:49→23:57)
[2020-09-04] MEDS: VENLAFAXINE HCL 75 MG CAP.SR.24H PO SCH (20:10)
[2020-09-04] MEDS: AMLODIPINE BESYLATE 10 MG TABLET PO SCH (21:12)
[2020-09-04] MEDS: PHARMACY COMMUNICATION ORDER MC SCH (21:12)
[2020-09-05] MEDS: HYDROMORPHONE HCL 2 MG TABLET PO PRN ×3 (05:18→14:05)
[2020-09-05] MEDS: ALPRAZOLAM 0.5 MG TABLET PO SCH ×3 (05:19→14:05)
[2020-09-05] MEDS: HYDROMORPHONE HCL INJ/PF 2 MG/ML AMPULE IV PRN (06:40)
[2020-09-05] MEDS: VENLAFAXINE HCL 75 MG CAP.SR.24H PO SCH (09:15)
[2020-09-05] MEDS: ERGOCALCIFEROL (VITAMIN D2) 50000 UNIT (1.25 MG) CAPSULE PO SCH (09:15)
[2020-09-05] MEDS: DEXAMETHASONE 4 MG TABLET PO SCH (09:16)
[2020-09-05] MEDS: LISINOPRIL 10 MG TABLET PO SCH (09:16)
[2020-09-05] MEDS: DOCUSATE SODIUM 100 MG CAPSULE PO SCH (09:17)
[2020-09-05] MEDS: LIDOCAINE 5% (700 MG) TRANSDERMAL ADH..PATCH TP SCH (09:17)
[2020-09-05] MEDS: FAMOTIDINE 20 MG TABLET PO SCH (09:17)
[2020-09-05] MEDS: ONDANSETRON 4 MG TAB.RAPDIS PO PRN ×2 (09:52→14:05)
[2020-09-05] MEDS: CARISOPRODOL 350 MG TABLET PO PRN (12:12)
[2020-09-05 14:34] VITALS: BP 115/68
--- NOTE | 2020-09-05 21:19 | PDOC DISCHARGE SUMMARY ---
Impression - Admit/DC Date/PCP Admission Date/Primary Care Provider: 08/22/20 10:00 NEGIN NORTON Discharge Date: 09/05/20 - Discharge Diagnosis (1) Intractable pain Is this a current diagnosis for this admission?: Yes (2) Metastatic cancer Is this a current diagnosis for this admission?: Yes (3) Malignant pleural effusion Is this a current diagnosis for this admission?: Yes (4) Mass of psoas muscle Is this a current diagnosis for this admission?: Yes (5) Prostate cancer Is this a current diagnosis for this admission?: Yes (6) Acute kidney injury superimposed on CKD Is this a current diagnosis for this admission?: Yes (7) Acute laryngitis Is this a current diagnosis for this admission?: Yes (8) Anxiety Is this a current diagnosis for this admission?: Yes (9) Hydronephrosis Is this a current diagnosis for this admission?: Yes (10) Hypertension Is this a current diagnosis for this admission?: Yes (11) Leg edema, left Is this a current diagnosis for this admission?: Yes (12) Hyponatremia Is this a current diagnosis for this admission?: Yes - Assessment Summary: (1) Intractable pain Is this a current diagnosis for this admission?: Yes Plan: Much improved. Complaining of severe pain to left sacrum, groins, anterior proximal left lower extremity pain. 08/22/2020. CT abdomen pelvis positive for extensive metastasis. 08/23/2020. MRI lumbar spine new low T1 signal metastatic lesions within the L2, L3 and L4 vertebral bodies. 2 infiltrative left-sided retroperitoneal paraspinal mass/adenopathy from the level of L2-L3 to L4-L5 does not involve the psoas musculature. Severe left-sided hydronephrosis Continue fentanyl patch; dose increased to 100 mg/24hr Oral Dilaudid 5 mg every 4 hours as needed. Breakthrough Dilaudid 0.5 mg IV every 6 hours as needed Dexamethasone for nerve compression. completed palliative radiation Oncology on board. Recommendations noted. Non-opiate regiment escalated; lidoderm patches, gabapentin, tylenol, and toradol Nonpharmocological interventions. Patient to transition to hospice (2) Metastatic cancer Qualifiers: Area of secondary neoplastic involvement: other site Qualified Code(s): C79.89 - Secondary malignant neoplasm of other specified sites Is this a current diagnosis for this admission?: Yes Plan: - likely from Prostate Cancer or from new unknown primary cancer - s/p biopsy of psoas mass showed malignant neoplasm - patient also has malignant pleural effusion - patient currently getting palliative radiation mostly to help with pain - upon discussion with Dr. Mercer, the patient has decided to transition to hospice however since he lives alone home hospice can be challenging unless he can find someone to help him at home. I am unsure if he will qualify for in patient hospice. - oncology following (3) Malignant pleural effusion Is this a current diagnosis for this admission?: Yes Plan: Pleural effusion cultures are negative at 24 hours. Cytology results showed metastatic carcinoma unknown primary Surgery was consulted. With a chest tube to water seal, 100 ml/24 hrs S/p Pleurx catheter placed (4) Mass of psoas muscle Is this a current diagnosis for this admission?: Yes Plan: Biopsy completed; showed malignant neoplasm patient to transition to hospice. (5) Prostate cancer Is this a current diagnosis for this admission?: Yes Plan: Diagnosed in 2018. Status post Lupron injection and radiation. Psoas muscle biopsy completed; showed malignant neoplasm Primary plan per Oncology. (6) Acute kidney injury superimposed on CKD Is this a current diagnosis for this admission?: Yes Plan: Resolved. Prerenal due to low p.o. intake. Monitor volume status and electrolytes, replace electrolytes as needed. Avoid nephrotoxic meds. (7) Acute laryngitis Is this a current diagnosis for this admission?: Yes Plan: Improved today. Denies pain. Does report difficulty swallowing. Noted to have lost his voice this morning. Slight lymphardenopathy on exam. FROM w/o pain CT Soft tissue neck did not show concerning mass/obstructions. COVID negative. Continue dexamethasone Encourage po fluids (8) Anxiety Is this a current diagnosis for this admission?: Yes Plan: Increased sedation w/ dilaudid and fentanyl use. Decrease xanax to 0.25 mg q8hp (9) Hydronephrosis Qualifiers: Hydronephrosis type: unspecified Qualified Code(s): N13.30 - Unspecified hydronephrosis Is this a current diagnosis for this admission?: Yes Plan: History of hydronephrosis status post left ureteral stent placement. MRI lumbar spine shows severe left-sided hydronephrosis Crea currently normal at 0.82. Monitor renal very function closely. Unfortunately no urology consult available at [facility]. (10) Hypertension Is this a current diagnosis for this admission?: Yes Plan: Acceptable blood pressures today. Euvolemic. Monitor vitals. HCTZ held due to hyponatremia (11) Leg edema, left Is this a current diagnosis for this admission?: Yes Plan: Improved. Possibly lymphatic return compression r/t malignancy. Vnous Doppler negative for SVT/DVT BETY james, keep elevated (12) Hyponatremia Is this a current diagnosis for this admission?: Yes Plan: - Na 128 - not on IV fluids, no on diuretics appears euvolemic - gabapentin and effexor stopped - ddx SIADH from malignancy - Urine and serum Osm sent to investigate - Additional Information Resuscitation Status: Full Code Discharge Diet: As Tolerated Discharge Activity: Activity As Tolerated Referrals: CARLTON DAVENPORT NP-C [Primary Care Provider] - Follow up as needed Prescriptions: Docusate Sodium [Colace 100 mg Capsule] 100 mg PO BID 30 Days #30 capsule Dexamethasone [Decadron 4 mg Tablet] 8 mg PO QAM 30 Days #30 tablet Hydromorphone HCl [Dilaudid 2 mg Tablet] 5 mg PO Q4HP PRN 2 Days #10 tablet PRN Reason: Lidocaine [Lidoderm 5% (700 mg) Transdermal Patch] 2 patch TP DAILY 30 Days #60 adh..patch Ondansetron [Zofran Odt 4 mg Tablet] 4 mg PO Q4HP PRN 30 Days #30 tab.rapdis PRN Reason: Home Medications: Alprazolam [Xanax] 0.5 mg PO QID 08/22/20 Carisoprodol [Soma 350 mg Tablet] 350 mg PO BID 08/22/20 Venlafaxine HCl ER [Effexor Xr 75 mg Cap.sr] 75 mg PO DAILY 08/22/20 Acetaminophen [Tylenol 325 mg Tablet] 325 mg PO Q4HP PRN tablet 09/05/20 Dexamethasone [Decadron 4 mg Tablet] 8 mg PO QAM 30 Days #30 tablet 09/05/20 Docusate Sodium [Colace 100 mg Capsule] 100 mg PO BID 30 Days #30 capsule 09/05/20 Hydromorphone HCl [Dilaudid 2 mg Tablet] 5 mg PO Q4HP PRN 2 Days #10 tablet 09/05/20 Lidocaine [Lidoderm 5% (700 mg) Transdermal Patch] 2 patch TP DAILY 30 Days #60 adh..patch 09/05/20 Ondansetron [Zofran Odt 4 mg Tablet] 4 mg PO Q4HP PRN 30 Days #30 tab.rapdis 09/05/20 History of Present Illiness History of Present Illness: JENN CARMEN is a 60 year old male, past medical history of prostate cancer diagnosed in 2018 status post radiation and Lupron injection presenting to ED complaining of intractable pain to his left lower back, bilateral groins, testicles and proximal left lower extremity. Patient is stating that he has been having this pain since April 2020, and has been managed with p.o. dilated but for the last 2 days he is having extremely severe pain not controlled with home dose of Dilantin, pain is explained as a deep constant pain, 5/5 on severity scale, worse with any type of movement, not alleviated with p.o. Dilaudid, associated with left proximal lower extremity anterior aspect numbness and tingling. Denies any urinary retention, loss of bladder control, saddle anesthesia, he is able to walk however he avoids walking due to severe pain, denies any fever, chills, nausea, vomiting, diarrhea, constipation, shortness of breath. In ED CT abdomen pelvis showed interval development of innumerable pulmonary nodules, with large right and small left pleural effusion, highly suspicious for diffuse metastatic disease. Marked increase in the left periaortic mass and adenopathy extending from the level of the left kidney to the pelvis, extension into the left psoas muscle, indwelling left ureteral stent with mild hydronephrosis. Hospital Course Hospital Course: Patient was admitted for intractable pain and was started on IV pain medications. Oncology was consulted. [facility] MRI showed metastatic lesions to the bone and right psoas mass. This Psoas mass was biopsied which turned out to be metastatic carcinoma. Patient was found to have right pleural effusion hence surgery was consulted and a chest tube was placed which was converted to Pleurx cath. Pleural fluid analysis showed malignant pleural effusion. Patient was started on dexamethasone for nerve compression. patient underwent several episodes of radiation for palliative radiation to help with pain. The patient eventually decided to go home in hospice and was discharged 09/05/20. Physical Exam Vital Signs: Temp Pulse Resp BP Pulse Ox 97.5 F 93 18 115/68 96 09/05/20 14:28 09/05/20 14:28 09/05/20 14:28 09/05/20 14:28 09/05/20 14:28 Intake & Output 09/04/20 09/05/20 09/06/20 06:59 06:59 06:59 Intake Total 1156 990 Output Total 1760 800 Balance -604 190 Weight 78.3 kg 83.1 kg General appearance: PRESENT: cooperative, mild distress Head exam: PRESENT: atraumatic, normocephalic Eye exam: PRESENT: EOMI, PERRLA Mouth exam: PRESENT: moist Neck exam: PRESENT: full ROM Respiratory exam: PRESENT: decreased breath sounds, symmetrical. ABSENT: tachypnea Cardiovascular exam: PRESENT: RRR, +S1, +S2 GI/Abdominal exam: PRESENT: normal bowel sounds, soft. ABSENT: rebound, tenderness Extremities exam: PRESENT: full ROM Musculoskeletal exam: PRESENT: full ROM Neurological exam: PRESENT: alert, awake, oriented to person, oriented to place, oriented to time, oriented to situation Psychiatric exam: PRESENT: normal mood Skin exam: PRESENT: normal color Results Laboratory Results: WBC 7.2 10^3/uL (4.0-10.5) 08/31/20 04:44 RBC 3.90 10^6/uL (4.35-5.55) L 08/31/20 04:44 Hgb 11.1 g/dL (13.5-17.0) L 08/31/20 04:44 Hct 33.4 % (37.9-51.0) L 08/31/20 04:44 MCV 86 fl (80-97) 08/31/20 04:44 MCH 28.6 pg (27.0-33.4) 08/31/20 04:44 MCHC 33.4 g/dL (32.0-36.0) 08/31/20 04:44 RDW 13.9 % (11.5-14.0) 08/31/20 04:44 Plt Count 357 10^3/uL (150-450) 08/31/20 04:44 Lymph % (Auto) 6.1 % (13-45) L 08/22/20 07:40 [place] % (Auto) 6.7 % (3-13) 08/22/20 07:40 Eos % (Auto) 0.5 % (0-6) 08/22/20 07:40 Baso % (Auto) 0.5 % (0-2) 08/22/20 07:40 Absolute Neuts (auto) 7.6 10^3/uL (1.7-8.2) 08/22/20 07:40 Absolute Lymphs (auto) 0.5 10^3/uL (0.5-4.7) 08/22/20 07:40 Absolute Monos (auto) 0.6 10^3/uL (0.1-1.4) 08/22/20 07:40 Absolute Eos (auto) 0.0 10^3/uL (0.0-0.6) 08/22/20 07:40 Absolute Basos (auto) 0.0 10^3/uL (0.0-0.2) 08/22/20 07:40 Seg Neutrophils % 86.2 % (42-78) H 08/22/20 07:40 PT 14.3 SEC (11.4-15.4) 08/25/20 06:22 INR 1.09 08/25/20 06:22 APTT 29.2 SEC (23.5-35.8) 08/25/20 06:22 Sodium 131.7 mmol/L (137-145) L 09/04/20 05:10 Potassium 4.4 mmol/L (3.6-5.0) 09/04/20 05:10 Chloride 92 mmol/L (98-107) L 09/04/20 05:10 Carbon Dioxide 33 mmol/L (22-30) H 09/04/20 05:10 Anion Gap 7 (5-19) 09/04/20 05:10 BUN 29 mg/dL (7-20) H 09/04/20 05:10 Creatinine 0.98 mg/dL (0.52-1.25) 09/04/20 05:10 Est GFR ( Amer) > 60 (>60) 09/04/20 05:10 Est GFR (Non-Af Amer) Cancelled 09/02/20 12:13 Est GFR (MDRD) Non-Af > 60 (>60) 09/04/20 05:10 Glucose 112 mg/dL (75-110) H 09/04/20 05:10 Serum Osmolality 279 mOsm/kg (275-301) 09/01/20 09:35 Calcium 7.8 mg/dL (8.4-10.2) L 09/04/20 05:10 Magnesium 2.0 mg/dL (1.6-2.3) 08/23/20 05:28 Total Bilirubin 0.4 mg/dL (0.2-1.3) 09/04/20 05:10 Direct Bilirubin 0.4 mg/dL (0.0-0.4) 09/04/20 05:10 Neonat Total Bilirubin Not Reportable 09/04/20 05:10 Neonat Direct Bilirubin Not Reportable 09/04/20 05:10 Neonat Indirect Bili Not Reportable 09/04/20 05:10 AST 42 U/L (17-59) 09/04/20 05:10 ALT 21 U/L (<50) 09/04/20 05:10 Alkaline Phosphatase 174 U/L (38-126) H 09/04/20 05:10 Total Protein 5.3 g/dL (6.3-8.2) L 09/04/20 05:10 Albumin 2.7 g/dL (3.5-5.0) L 09/04/20 05:10 EGFR Cancelled 09/02/20 12:[address] 08/22/20 07:40 Urine Appearance SLIGHTLY-CLOUDY 08/22/20 07:40 Urine pH 6.0 (5.0-9.0) 08/22/20 07:40 Ur Specific [place] 1.035 08/22/20 07:40 Urine Protein 100 mg/dL (NEGATIVE) H 08/22/20 07:40 Urine Glucose (UA) NEGATIVE mg/dL (NEGATIVE) 08/22/20 07:40 Urine Ketones TRACE mg/dL (NEGATIVE) H 08/22/20 07:40 Urine Blood NEGATIVE (NEGATIVE) 08/22/20 07:40 Urine Nitrite NEGATIVE (NEGATIVE) 08/22/20 07:40 Urine Bilirubin SMALL (NEGATIVE) H 08/22/20 07:40 Urine Urobilinogen 4.0 mg/dL (<2.0) H 08/22/20 07:40 Ur Leukocyte Esterase TRACE (NEGATIVE) H 08/22/20 07:40 Urine WBC (Auto) 6 /HPF 08/22/20 07:40 Urine RBC (Auto) 2 /HPF 08/22/20 07:40 Urine Bacteria (Auto) TRACE /HPF 08/22/20 07:40 Squamous Epi Cells Auto <1 /HPF 08/22/20 07:40 Urine Mucus (Auto) FEW /LPF 08/22/20 07:40 Urine Osmolality 440 mOsm/kg (300-900) 09/01/20 20:00 Urine Sodium 59 mmol/L (30-90) 09/01/20 20:00 Urine Ascorbic Acid NEGATIVE (NEGATIVE) 08/22/20 07:40 Fluid Type PLEURAL 08/28/20 22:45 Fluid Source LUNG 08/28/20 22:45 Fluid Color YELLOW 08/28/20 22:45 Fluid Appearance HAZY 08/28/20 22:45 Fluid Viscosity SLIGHTLY VISCOUS 08/28/20 22:45 Fluid WBC 106 /uL 08/28/20 22:45 Fluid RBC 4195 /uL 08/28/20 22:45 Fluid Seg Neutrophils 21 % 08/28/20 22:45 Fluid Lymphocytes 79 % 08/28/20 22:45 Fluid Monocytes 0 % 08/28/20 22:45 Fluid Eosinophils 0 % 08/28/20 22:45 Fluid Basophils 0 % 08/28/20 22:45 Fluid Total Protein 3.5 g/dL (.) 08/28/20 22:45 Influenza A (RT-PCR) NEGATIVE (NEGATIVE) 08/28/20 19:28 Influenza B (RT-PCR) NEGATIVE (NEGATIVE) 08/28/20 19:28 RSV (RT-PCR) NEGATIVE (NEGATIVE) 08/28/20 19:28 SARS-CoV-2 Rap RNA(RT-PCR) NEGATIVE (NEGATIVE) 08/28/20 19:28 Impressions: Abdomen/Pelvis CT 08/22/20 07:21 IMPRESSION: Interval development of innumerable pulmonary nodules, with large right and smaller left pleural effusions. Highly suspicious for diffuse metastatic disease. Marked increase in the left para aortic mass and adenopathy extending from the level of the left kidney to the pelvis. Extension into the left psoas muscle. Indwelling left ureteral stent with mild hydronephrosis. Lumbar Spine MRI 08/23/20 00:00 IMPRESSION: 1. New low T1 signal metastatic lesions within the L2, L3 and L4 vertebral bodies. 2. Infiltrative left-sided retroperitoneal paraspinal mass/adenopathy from the level of L2-L3 to L4-L5 that involves the psoas musculature and results in severe left-sided hydronephrosis. Guidance Needle Placement CT 08/25/20 00:00 IMPRESSION: Please see combined report for performance of procedure and radiologic supervision and interpretation. Muscle Biopsy CT 08/25/20 08:00 IMPRESSION: CT GUIDED BIOPSY OF THE LEFT RETROPERITONEAL MASS PERFORMED WITHOUT IMMEDIATE COMPLICATION. PATHOLOGY POSITIVE FOR MALIGNANCY WITH DEFINITIVE DIAGNOSIS PENDING. Chest CT 08/28/20 00:00 IMPRESSION: 1. Widespread metastatic disease as above. 2. Large right and moderate left pleural effusions. Thoracentesis may be helpful. Chest X-Ray 08/28/20 00:00 IMPRESSION: 1. Resolution of right pleural effusion status post chest tube placement. 2. 10-15% right pneumothorax. Soft Tissue Neck CT 08/28/20 00:00 IMPRESSION: No acute abnormality. No findings to correlate to the patient's reported dysphagia. Venous Doppler Study 08/28/20 00:00 IMPRESSION: No evidence of deep venous thrombosis in the visualized left lower extremity. Chest X-Ray 08/30/20 06:00 IMPRESSION: No significant interval change. Left-sided pleural effusion is slightly smaller. Large-bore right-sided chest tube remains in place with small apical pneumothorax. Chest X-Ray 08/31/20 12:00 IMPRESSION: Stable appearance of the chest. Bilateral infiltrates. Left pleural effusion. Chest tube. Chest X-Ray 09/03/20 00:00 IMPRESSION: 1. Stable pulmonary exam demonstrating bilateral airspace opacities and a small left-sided pleural effusion. 2. Stable right hemithorax chest tube. Chest X-Ray 09/03/20 00:00 IMPRESSION: 1. Status post replacement of a previous large-bore chest tube for a tunneled pleural drainage catheter ; the proximal side hole of the catheter projects outside of the pleural space. 2. The right apical pneumothorax has increased in size from 2.1 cm on the prior radiograph to 2.4 cm. 3. The pleural opacities in the left hemithorax have increased. Chest X-Ray 09/03/20 00:00 IMPRESSION: IMAGE(S) OBTAINED DURING PROCEDURE. Fluoroscopy 09/03/20 00:00 IMPRESSION: IMAGE(S) OBTAINED DURING PROCEDURE. Plan Plan of Treatment: - home with hospice Stroke Is this a Stroke Patient?: No Acute Heart Failure Is this a Heart Failure Patient?: No
== END 2020-09-05 16:45 | disposition hospice, home (50) | DRG 948 ==
LOC: ER 06:50 → EH 10:00 → 4W 12:23
PROVIDERS: ADMIT Internal Medicine; ATTEND Internal Medicine
PROC: 0WBH3ZX Excision of Retroperitoneum, Percutaneous Approach, Diagnostic (ICD-10-PCS; principal; 2020-08-25)
PROC: 0W9930Z Drainage of Right Pleural Cavity with Drainage Device, Percutaneous Approach (ICD-10-PCS; 2020-08-28)
PROC: 0WH833Z Insertion of Infusion Device into Chest Wall, Percutaneous Approach (ICD-10-PCS; 2020-09-03)
DX: G89.3 Neoplasm related pain (acute) (chronic) (principal); N17.9 Acute kidney failure, unspecified; N13.30 Unspecified hydronephrosis; J91.0 Malignant pleural effusion; E87.1 Hypo-osmolality and hyponatremia; C79.51 Secondary malignant neoplasm of bone; C79.89 Secondary malignant neoplasm of other specified sites; C61 Malignant neoplasm of prostate; Z20.822 Contact with and (suspected) exposure to COVID-19; Z66 Do not resuscitate; N18.9 Chronic kidney disease, unspecified; J04.0 Acute laryngitis; R60.0 Localized edema; E78.5 Hyperlipidemia, unspecified; F32.9 Major depressive disorder, single episode, unspecified; F41.1 Generalized anxiety disorder; F43.10 Post-traumatic stress disorder, unspecified; I12.9 Hypertensive chronic kidney disease with stage 1 through stage 4 chronic kidney disease, or unspecified chronic kidney disease; Z92.3 Personal history of irradiation; Z79.899 Other long term (current) drug therapy; Z82.3 Family history of stroke
CPT/HCPCS: 20206; 36415; 532; 70491; 71045; 71250; 72148; 74176; 77012; 80048; 80053; 81001; 83735; 83930; 83935; 84157; 84300; 85025; 85027; 85610; 85730; 87070; 87075; 87086; 87205; 88305; 88313; 88341; 88342; 89050; 93971; 94799; 96361; 96374; 96376; 99285; 0241U; C9803; J0610; J1100; J1170; J1644; J1885; J1940; J2250; J2354; J2370; J2405; J2550; J2704; J2930; J3010; J3490; J7030; J7040; J8540; S0119